=== PATIENT | female | born 1950 | race Caucasian/White ===

== ENCOUNTER 2017-12-27 14:24 | Outpatient (CLI) | payer MEDICARE | END 2017-12-27 14:25 | disposition home or self-care (01) | LOC: BICMAMMO 14:24 | PROVIDERS: ATTEND Obstetrics & Gynecology | DX: Z12.31 Encounter for screening mammogram for malignant neoplasm of breast (principal); Z13.820 Encounter for screening for osteoporosis; M85.80 Other specified disorders of bone density and structure, unspecified site; Z85.89 Personal history of malignant neoplasm of other organs and systems | CPT/HCPCS: 77063; 77067; 77080 ==

== ENCOUNTER 2018-05-15 16:54 | Observation (INO) | payer MEDICARE ==
[2018-05-15] MEDS ORDERED: Ondansetron HCl/PF 4 MG/2 ML Vial ONE (17:24)
[2018-05-15] MEDS ORDERED: Fentanyl 100 MCG/2 ML VIAL ONE (17:24)
[2018-05-15] MEDS ORDERED: Nitroglycerin 2% Ointment 1 INCH/1 GM Packet ONE (17:24)
[2018-05-15 17:33] LABS: Hemoglobin 12.7 g/dL (12.0-16.0); Mean Corpuscular HGB CONC 33.9 g/dL (32.0-36.0); Mean Corpuscular Hemoglobin 31.5 pg (27.0-31.0); Mean Platelet Volume 8.5 fL (7.4-10.4); Platelet Count 172 thou/uL (130-400); RBC Distribution Width 13.1 % (11.5-14.5); Red Blood Cell (RBC) Count 4.02 mill/uL (4.20-5.40)
[2018-05-15 17:37] LABS: #Eosinphils 0.3 thou/uL (0.0-0.7); #Lymphocytes 1.7 thou/uL (1.20-3.40); #Monocytes 0.5 thou/uL (0.11-0.59); #Neutrophils 4.5 thou/uL (1.40-6.50); %Basophils 0.4 % (0.0-1.0); %Eosinophils 3.8 % (0.0-10.0); %Lymphocytes 24.1 % (21.0-51.0); %Monocytes 7.3 % (0.0-10.0); %Neutrophils 64.4 % (42.0-75.0)
[2018-05-15 17:44] LABS: CRP (Inflammatory) Less than 0.50 mg/dL (= or < 0.5); Magnesium 2.2 mg/dL (1.6-2.6)
[2018-05-15 17:46] LABS: ALT (SGPT) 20 U/L (8-55); AST (SGOT) 26 U/L (5-34); Albumin 3.8 g/dL (3.4-4.8); Alkaline Phosphatase 76 U/L (40-150); Anion Gap 14 mmol/L (10-20); BUN (Urea Nitrogen) 20 mg/dL (9.8-20.1); Bilirubin, Total 0.7 mg/dL (0.2-1.2); CK (CPK) 291 U/L (29-168); Calc. Creatinine Clearance 0 mL/min (70-130); Calcium 9.3 mg/dL (7.8-10.44); Carbon Dioxide 26 mmol/L (23-31); Chloride 103 mmol/L (98-107); Estimated GFR-MDRD 46; Globulin 3.1 g/dL (2.4-3.5); Glucose 107 mg/dL (80-115); Lipase 29 U/L (8-78); Potassium 3.9 mmol/L (3.5-5.1); Protein, Total 6.9 g/dL (6.0-8.3); Sodium 139 mmol/L (136-145)
[2018-05-15 17:51] LABS: CKMB 1.1 ng/mL (0-6.6); Troponin I Less than 0.010 ng/mL (< 0.028)
--- NOTE | 2018-05-15 18:05 | RAD ---
SINGLE VIEW OF THE CHEST: 05/15/18 COMPARISON: 01/11/17 HISTORY: Chest pain. FINDINGS: Single view of the chest shows a normal sized cardiomediastinal silhouette. The patient is status pos t CABG. There is no evidence of consolidation, mass, or pleural effusion. IMPRESSION: No evidence of acute cardiopulmonary disease. POS: SJ
[2018-05-15 19:44] VITALS: BMI 28.8
[2018-05-15] MEDS ORDERED: Ondansetron ODT 4 MG TAB SL PRN (19:57)
[2018-05-15] MEDS ORDERED: Ondansetron HCl/PF 4 MG/2 ML Vial IVP PRN (19:57)
[2018-05-15] MEDS ORDERED: Acetaminophen 325 MG TAB PO PRN ×2 (19:57→21:30)
[2018-05-15 20:51] LABS: Troponin I 0.015 ng/mL (< 0.028)
[2018-05-15] MEDS ORDERED: cloNIDine 0.1 MG TAB PO PRN (20:59)
[2018-05-15] MEDS ORDERED: Benzonatate 100 MG CAP PO PRN (20:59)
[2018-05-15] MEDS ORDERED: Ondansetron ODT 4 MG TAB PO PRN (20:59)
[2018-05-15] MEDS ORDERED: Atorvastatin Calcium 20 MG TAB PO SCH (21:00)
[2018-05-15] MEDS ORDERED: Amitriptyline HCl 25 MG TAB PO SCH (21:00)
[2018-05-15] MEDS ORDERED: Famotidine 20 MG TAB PO SCH (21:00)
[2018-05-15] MEDS ORDERED: Carvedilol 25 MG TAB PO SCH (21:00)
[2018-05-15] MEDS ORDERED: Zonisamide 25 MG CAP PO SCH (21:00)
[2018-05-15] MEDS ORDERED: Calcium Carbonate 500 MG ChewTAB PO PRN (21:30)
[2018-05-15] MEDS ORDERED: Mag-Al 1200 mg/1200 mg/30 ML UDCUP PO PRN (21:30)
[2018-05-15] MEDS ORDERED: Senokot 8.6 MG TAB PO PRN (21:30)
[2018-05-15] MEDS ORDERED: Nitroglycerin 0.4 MG TAB (25 Tab Bottle) PO PRN (21:30)
--- NOTE | 2018-05-15 21:40 | HP ---
DATE OF ADMISSION: 05/15/2018 PRIMARY CARE PHYSICIAN: KIANA Wang PRIMARY BREWERY WORKER: Dr. Conley. CHIEF COMPLAINT: Chest discomfort. HISTORY OF PRESENT ILLNESS: Patient is a 67-year-old female with coronary artery disease, status pos t CABG, diabetes mellitus type 2, hypertension, and dyslipidemia presented to the emergency room with chest discomfort. The chest discomfort was sudden onset, severe in intensity, substernal, radiating between her scapula. It was constant, pressure-like without any aggravating or relieving factor. S he was diaphoretic and short of breath at that time. The pain somewhat improved with nitroglycerin. She also felt lightheaded and dizzy; however, denies any syncope. She denies recent immobilization or travel. She recently saw Dr. Conley and had an echocardiogram. No similar chest discomfort in the past. PAST MEDICAL HISTORY: 1. Coronary artery disease, status post CABG with redo CABG in 2016. 2. Irritable bowel syndrome. 3. History of ischemic colitis. 4. Chronic hemiplegic migraine. 5. Chronic pain syndrome. 6. Dyslipidemia. 7. Diabetes mellitus, type 2. 8. Hypertension. 9. Anxiety and depression. PAST SURGICAL HISTORY: 1. Coronary artery bypass grafting in 2005 with redo CABG in 2016. 2. Cardiac catheterization. 3. Hysterectomy. 4. Colonoscopy. 5. Appendectomy. 6. Bladder suspension surgery. 7. Hernia repair. ALLERGIES: Patient is allergic to CIPROFLOXACIN, REGLAN. CURRENT HOME MEDICATIONS: Family to bring the accurate list of medications. She is unable to recall all medications. SOCIAL HISTORY: Patient is and lives at home with her . She is a professor at [employer]. No tobacco, alcohol, or drug use. FAMILY HISTORY: Positive for coronary artery disease. REVIEW OF SYSTEMS: The following complete review of systems was negative, unless otherwise mentioned in the HPI or below: Constitutional: Weight loss or gain, ability to conduct usual activities. Sk in: Rash, itching. Eyes: Double vision, pain. ENT/Mouth: Nose bleeding, neck stiffness, pain, te nderness. Cardiovascular: Palpitations, dyspnea on exertion, orthopnea. Respiratory: Shortness of breath, wheezing, cough, hemoptysis, fever, or night sweats. Gastrointestinal: Poor appetite, abdo kristi pain, heartburn, nausea, vomiting, constipation, or diarrhea. Genitourinary: Urgency, frequen cy, dysuria, nocturia. Musculoskeletal: Pain, swelling. Neurologic/Psychiatric: Anxiety, depressi on. Allergy/Immunologic: Skin rash, bleeding tendency. PHYSICAL EXAMINATION: VITAL SIGNS: In the emergency room showed temperature 97.8, respirations of 20, pulse rate of 87, bl ood pressure of 149/77 with O2 saturation 97% on room air. GENERAL: A 67-year-old female in no apparent distress. Chest discomfort has improved. HEENT: Head atraumatic, normocephalic. Sclerae anicteric. Moist mucous membrane, no oral lesions. NECK: Supple, no JVD, no carotid bruit. LUNGS: Clear to auscultation bilaterally. HEART: S1, S2 present. Regular rate and rhythm. Healed midline scar from previous CABG. No reprod ucible chest wall tenderness. No heaves or pulsation. ABDOMEN: Soft, nontender, bowel sounds present. There was minimal tenderness in the suprapubic mi on without any rebound or guarding. EXTREMITIES: No edema or calf tenderness. PERIPHERAL VASCULAR: Radial pulses palpable bilaterally and equal. PSYCHIATRY: Alert, awake, oriented x3. NEUROLOGIC: Grossly nonfocal, moves all four extremities. SKIN: Warm and dry. LABORATORY DATA AND X-RAY FINDINGS: 1. EKG by my review showed sinus rhythm without significant ST-T wave changes. 2. Troponins were negative. 3. BNP was 31.4. 4. Creatinine 1.18 with a BUN 20, sodium 139, potassium 3.9. 5. WBC was 7 with hemoglobin 12.7. 6. ESR, CRP were negative. Magnesium was 2.2. LFTs in normal range. Chest x-ray by my review was negative for infiltrate. There was no mediastinal widening. IMPRESSION: 1. Chest discomfort improved with nitroglycerin. 2. Diabetes mellitus, type 2. 3. Chronic kidney disease, stage 3. 4. Hypertension. 5. History of ischemic colitis. 6. Chronic pain syndrome. 7. Chronic hemiplegic migraine. 8. Coronary artery disease, status post coronary artery bypass graft in 2005 with a redo coronary ar demian bypass graft in 2016. PLAN: Patient will be monitored in the telemetry unit. We will get serial troponins. We will keep her n.p.o. past midnight for Cardiology evaluation in a.m. We will resume her home medications includ ing aspirin. Home medications will be verified. Plan of care was discussed with the patient in detail. She stated understanding.
[2018-05-15] MEDS: Gabapentin 300 MG CAP PO SCH (21:56)
[2018-05-15] MEDS: Baclofen 10 MG TAB PO SCH (21:56)
[2018-05-15] MEDS: Lisinopril 2.5 MG TAB PO SCH (21:59)
[2018-05-15] MEDS: cycloSPORINE 0.05% Ophthalmic Droperette EA EYE SCH (22:01)
[2018-05-15 23:42] LABS: Troponin I 0.011 ng/mL (< 0.028)
[2018-05-16] MEDS ORDERED: Carvedilol 3.125 MG TAB PO SCH (08:00)
[2018-05-16] MEDS ORDERED: Iopamidol 370 76% 100 ML VIAL ONE (08:19)
[2018-05-16] MEDS: Lisinopril 2.5 MG TAB PO SCH (08:33)
[2018-05-16] MEDS: Gabapentin 300 MG CAP PO SCH ×2 (08:36→15:35)
[2018-05-16] MEDS: Baclofen 10 MG TAB PO SCH ×2 (08:36→15:35)
[2018-05-16] MEDS: cycloSPORINE 0.05% Ophthalmic Droperette EA EYE SCH (08:46)
[2018-05-16] MEDS ORDERED: Furosemide 20 MG TAB PO SCH ×2 (09:00)
[2018-05-16] MEDS ORDERED: Aspirin 325 mg Enteric Coated Tablet PO SCH (09:00)
[2018-05-16] MEDS ORDERED: Famotidine 20 MG TAB PO SCH (09:00)
[2018-05-16] MEDS ORDERED: Folic Acid 1 MG TAB PO SCH (09:00)
--- NOTE | 2018-05-16 11:43 | CT ---
CTA CHEST WITH CONTRAST CTA ABDOMEN WITH CONTRAST DISSECTION PROTOCOL: Date: 05/16/18 HISTORY: New onset chest pain without EKG changes. FINDINGS: There is a nodule in the left upper lobe measuring 4.0 mm. There is some scarring in the right middle lobe and right lower lobe. Triangular shaped opacity in the left lung base, not definitively round a telectasis, measuring up to 6.0 mm. No pericardial effusion. Heart size mildly enlarged. Hypodensities are present in the liver. The spleen and pancreas are unremarkable. No retroperitoneal adenopathy. No dilated loops of large or small bowel. Skeleton is unremarkable. Adrenal glands unremarkable. Vessels: Prior CABG. No aneurysmal dilatation of the aorta. No dissection. No intramural hematoma. T he celiac trunk and superior mesenteric artery are patent. Common iliac arteries are patent. IMPRESSION: No evidence for aortic dissection. POS: ANGELIQUE
--- NOTE | 2018-05-16 13:21 | CON ---
DATE OF CONSULTATION: 05/16/2018 INDICATION FOR CONSULTATION: This is a 67-year-old female with new onset chest pain. HISTORY OF PRESENT ILLNESS: This very pleasant 67-year-old female who has been followed by me for se veral years. She has undergone bypass surgery x2 in the past. She had a CABG in 2004 with a CARDONA to left anterior descending artery, radial graft to the ramus and saphenous vein graft to the obtuse ma rginal branch of left circumflex. She underwent redo bypass surgery in 2015 with saphenous vein jef t to the LAD and also to the ramus branch. She has been doing very well after her bypass surgery. S he was recently seen in the office without any complaints. Yesterday, she was at work. 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 She took 2 nitroglycerins. She was still having some discomfort. She then was going to the main office to have them call 911. She went to he hallway and called a grad student and then the next thing she remembers she was sitting on the elizabeth or. She denies that she passed out, but she said she sat down because she was still continuing to mendoza ve pain. She was brought to the emergency room here and now she still has some discomfort, but there is no significant pain like she had. She had never experienced pain like this in the past. Her enz ymes are negative. Her EKG is unremarkable. Uncertain as to why she had the severe pain in the ches t area radiating to the intrascapular area. She also became very diaphoretic and lightheaded, but it may be due to the fact that she took 2 nitroglycerin. Also, her blood pressure is on the low side t yumiko, but she was given increased dose of Coreg last night. This is more than her usual dose. She d enied any significant complaints at this time, so she still continues to have some mild discomfort. PAST MEDICAL HISTORY: Significant for the bypass surgery as noted above, irritable bowel syndrome, h istory of chronic migraines which are hemiplegia. She has chronic pain syndrome. She has had histor y of ischemic colitis. She has type 2 diabetes, dyslipidemia, anxiety, depression, hypertension. Marcin coleman has had a surgical procedure. She has had bypass surgery as noted above. She has had a hysterecto my, colonoscopy, appendectomy. She has had a hernia repair, bladder suspension. ALLERGIES: She is allergic to REGLAN and CIPRO. MEDICATIONS: Prior to admission included simvastatin, Zofran, folic acid, Restasis ophthalmic drops, ranitidine, benzonatate, dicyclomine, aspirin 325 mg a day, Butrans 5 mg patch, Celebrex, baclofen, Neurontin, Elavil, lisinopril 2.5 mg b.i.d., clonidine as needed for blood pressure greater than 160- 180, 1 g daily, Lasix 20 mg a day, biotin daily 1 mg, and Coreg 3.125 mg b.i.d. Since being in the hospital, these medicines have been continued and now I have decreased the dose of the Coreg, marcin coleman was given 12.5 mg yesterday. LABORATORY DATA: Shows no evidence of myocardial infarctions, her cardiac enzymes are negative. Her CK was slightly elevated at 291. Hemoglobin is 12.7, creatinine is 1.18, potassium 3.9. REVIEW OF SYSTEMS: A 12 point review of systems is relatively unremarkable except what was noted in the history of the present illness. She does have chronic headaches, but seems to be stable at this time. She has had no other significant HEENT complaints. Chest: She has had no complaints from ast hma, emphysema, bronchitis or significant shortness of breath. No GI or complaints except what wa s noted in the history of present illness. She has been doing relatively well. PHYSICAL EXAMINATION: GENERAL: Reveals a middle-aged female who is in no acute distress. VITAL SIGNS: Blood pressure at this time is 87/52 may be the residual of the previous beta blockers given last night, heart rates in the 70s and shows a sinus rhythm. Respiratory rate 16. She is afeb rile. HEENT: Shows head to be normocephalic and atraumatic. Carotid pulses are present. I did not hear a ny bruits. CHEST: Clear to auscultation without rales, rhonchi or wheezing. CARDIOVASCULAR: Exam reveals a regular rate and rhythm at this time a normal S1, S2. There are no s ignificant murmurs, heaves, thrills, bruits or rubs. ABDOMEN: Soft and nontender. She does have a well-healed midline surgical incision on the chest are a after previous median sternotomy. EXTREMITIES: Show no clubbing, cyanosis or edema. Pedal pulses are present, but are somewhat decrea sed. NEUROLOGIC: The patient appears to be intact. SKIN: Warm and dry. Her EKG shows a normal sinus rhythm without any acute changes. Her chest x-ray is also unremarkable. IMPRESSION: 1. New onset chest pain which have improved after taking some nitroglycerin and reporting to the [facility], but still continues to have dull ache. Given her history of hypertension in the past and the coronary artery disease without any evidence of EKG changes or cardiac enzymes, this may not be corre late coronary related. I will ask him to check a CT scan just to ensure she has had no small dissect ion of the aorta. 2. Diabetes. This is under good control at this time. 3. History of chronic kidney disease. This is also relatively stable. Her creatinine is under good control. Her chronic pain syndrome is different than what she experienced yesterday and I do not be lieve this is related to that. 4. Coronary artery disease does appear to be stable despite having the chest discomfort. We would b e more than happy to follow you. She does have some mild anemia, but this is within normal limits. 5. Elevated CK, but no elevation of the cardiac enzymes otherwise. Further care of the patient and recommendations will depend on whether or not there are any abnormalities noted whatsoever on CT scan .
--- NOTE | 2018-05-16 14:18 | DIS ---
DATE OF ADMISSION: 05/15/2018 DATE OF DISCHARGE: 05/16/2018 DISCHARGE DISPOSITION: Home. FOLLOWUP: Follow up with primary care physician, Aurelia Victoria in 1 week. Follow up with Dr. Carmen LUO in 1 week. INPATIENT CONSULTANTS: Cardiology, Dr. Conley. The patient was seen on the day of discharge, denies any new complaints. Chest discomfort has signif icantly improved. BRIEF HOSPITAL COURSE: The patient is a 67-year-old female with coronary artery disease, status post CABG, hypertension, and diabetes mellitus type 2, presented to the hospital with chest discomfort. Please refer to the history and physical for further details. The patient was admitted to the hospital with a diagnosis of chest pain, rule out acute coronary synd leah. Serial troponins were negative. CT of the chest was negative for aortic dissection. Patient was evaluated by Cardiology as well. Per Cardiology, her pain appears to be noncardiac. She will be discharged later today once cleared by Cardiology. The patient takes Dexilant on an as needed basis . She was advised to take Dexilant on a daily basis for now for a month. She was advised to follow up with Dr. Carmen LUO as an outpatient. DISCHARGE MEDICATIONS: 1. Dexilant 60 mg daily. 2. All other home medications including aspirin, Coreg, baclofen, amitriptyline were left unchanged. FINAL DIAGNOSES: 1. Chest pain, acute coronary syndrome ruled out. 2. Diabetes mellitus type 2. 3. Chronic pain syndrome. 4. Chronic kidney disease stage 3. 5. Hypertension. 6. Chronic hemiplegic migraine. 7. Coronary artery disease, status post coronary artery bypass graft in 2005 with a redo coronary ar demian bypass graft in 2016. 8. History of ischemic colitis. Plan of care was discussed with the patient and the family at the bedside. They stated understanding .
[2018-05-16 15:54] VITALS: BP 98/57; TEMP 97.5
--- NOTE | 2018-05-20 08:29 | EKG ---
Test Reason : Blood Pressure : / mmHG Vent. Rate : 072 BPM Atrial Rate : 072 BPM P-R Int : 160 ms QRS Dur : 080 ms QT Int : 434 ms P-R-T Axes : 018 017 016 degrees QTc Int : 475 ms Normal sinus rhythm Normal ECG When compared with ECG of 15-MAY-2018 17:12, (Unconfirmed) No significant change was found Confirmed by DR. Jason MAN ([id number]) on 05/20/2018 8:29:14 AM Referred By: GERMAN Confirmed By:DR. Jason MAN
--- NOTE | 2018-05-25 12:42 | EKG ---
Test Reason : CP Blood Pressure : / mmHG Vent. Rate : 085 BPM Atrial Rate : 085 BPM P-R Int : 152 ms QRS Dur : 086 ms QT Int : 406 ms P-R-T Axes : 035 040 005 degrees QTc Int : 483 ms Normal sinus rhythm Normal ECG Confirmed by JACKIE MONAE, SADI ([id number]), staff editor CHIDI UNDERWOOD ([id number]) on 05/25/2018 12:41:35 PM Referred By: Confirmed By:SADI MEJIA MD
== END 2018-05-16 16:05 | disposition home or self-care (01) ==
LOC: ERS 16:54 → 2SW 19:28
PROVIDERS: ADMIT Internal Medicine; ATTEND Internal Medicine
DX: R07.89 Other chest pain (principal); I25.10 Atherosclerotic heart disease of native coronary artery without angina pectoris; I12.9 Hypertensive chronic kidney disease with stage 1 through stage 4 chronic kidney disease, or unspecified chronic kidney disease; E11.22 Type 2 diabetes mellitus with diabetic chronic kidney disease; N18.3 Chronic kidney disease, stage 3 (moderate); E78.5 Hyperlipidemia, unspecified; G89.4 Chronic pain syndrome; F41.8 Other specified anxiety disorders; K58.9 Irritable bowel syndrome, unspecified; K55.9 Vascular disorder of intestine, unspecified; G43.409 Hemiplegic migraine, not intractable, without status migrainosus; Z79.82 Long term (current) use of aspirin; Z79.899 Other long term (current) drug therapy; Z88.1 Allergy status to other antibiotic agents; Z88.8 Allergy status to other drugs, medicaments and biological substances; Z95.1 Presence of aortocoronary bypass graft; Z98.890 Other specified postprocedural states
CPT/HCPCS: 71045; 71275; 80053; 82550; 82553; 83690; 83735; 83880; 84484 ×2; 85025; 85652; 86140; 93005 ×2; 94760 ×3; 96374; 96375; 99285; G0378 ×2; 36415; 93010; J2405; J3010

== ENCOUNTER 2019-06-06 10:46 | Outpatient (CLI) | payer MEDICARE ==
--- NOTE | 2019-06-06 12:29 | MRI ---
MRI cervical spine noncontrast: DATE: 06/06/2019 HISTORY: 68-year-old female with "M 50.10 cervical intervertebral disc disorder with radiculopathy" and gait d isorder. FINDINGS: Vertebral body heights are maintained. Cervical spinal cord is normal in size and signal. The cervica l spinal canal is developmentally small in caliber on a congenital basis due to developmentally short pedicles, exacerbated at several levels by cervical spondylosis. No major bone marrow signal ab normality. Mild-moderate disc space narrowing at all levels from C3-4 through C6-7. Facet DJD is mild to moderate bilaterally at C7-T1. No high-grade facet DJD at any other level. C1-2: No central stenosis. C2-3: No central or neural foraminal stenosis. C3-4: Small to moderate bilateral uncinate process osteophytes encroach upon bilateral neural foramin a, causing bilateral moderate to severe neural foraminal stenosis. Slight degenerative retrolisthesis of C3 on C4 plus broad-based shallow disc-osteophytic bar complex encroaches upon spin al canal exacerbating the developmentally small caliber of the spinal canal, causing moderate-severe central spinal canal stenosis. C4-5: Broad-based shallow disc-osteophytic bar complex encroaches upon ventral aspect of spinal canal , exacerbating the developmentally small caliber spinal canal, causing moderate to severe central spinal canal stenosis. Moderate size bilateral uncinate process osteophytes encroach upon bilateral n eural foramina, resulting in severe right neural foraminal stenosis and somewhat severe left neural foraminal stenosis. C5-6: Broad-based shallow disc-osteophytic bar complex, and slight degenerative retrolisthesis of C5 on C6, encroach upon ventral aspect of spinal canal, exacerbating the developmentally small caliber spinal canal, causing moderate to severe central spinal canal stenosis. Moderate size bilateral uncin ate process osteophytes encroach upon bilateral neural foramina, resulting in bilateral moderate-severe neural foraminal stenosis. C6-7:Broad-based shallow disc-osteophytic bar complex, encroaches upon ventral aspect of spinal canal , exacerbating the developmentally small caliber spinal canal, causing moderate to severe central spinal canal stenosis. Moderate size bilateral uncinate process osteophytes encroach upon bilateral n eural foramina, resulting in bilateral severe neural foramina C7-T1: No central stenosis. Mild broad-based disc-osteophytic bar complex encroaches upon anterior as pect of spinal canal. Bilateral moderate neural foraminal stenosis. IMPRESSION: 1. Developmentally small caliber spinal canal exacerbated by mild to moderate cervical spondylosis (m ultilevel mild to moderate degenerative disc disease), resulting in multilevel high-grade central spinal canal stenosis. 2. Multilevel high-grade neural foraminal stenosis bilaterally, including severe.
== END 2019-06-06 10:47 | disposition home or self-care (01) ==
LOC: TBSIIMAG 10:46
PROVIDERS: ATTEND Anesthesiology
DX: M50.10 Cervical disc disorder with radiculopathy, unspecified cervical region (principal); M47.22 Other spondylosis with radiculopathy, cervical region; M48.02 Spinal stenosis, cervical region
CPT/HCPCS: 72141

== ENCOUNTER 2019-10-06 09:46 | Inpatient (IN) | payer MEDICARE ==
--- NOTE | 2019-10-06 10:19 | CT ---
CT BRAIN WITHOUT CONTRAST: Date: 10/06/2019 HISTORY: Level I stroke, right-sided weakness, and right-sided facial droop. COMPARISON: 06/18/2016. FINDINGS: No evidence of acute infarct, hemorrhage, midline shift, or abnormal extra-axial fluid collections ar e seen. The ventricular size is normal and the basilar cisterns are patent. The bony calvarium is int act. The visualized paranasal sinuses and mastoid air cells are well aerated. IMPRESSION: No CT evidence of acute intracranial process. S/W Dr Jones @ 9:57 am POS: OFF
[2019-10-06 10:39] LABS: #Basophils 0.1 thou/uL (0.0-0.2); #Eosinphils 0.2 thou/uL (0.0-0.7); #Lymphocytes 1.9 thou/uL (1.20-3.40); #Monocytes 0.8 thou/uL (0.11-0.59); #Neutrophils 6.6 thou/uL (1.40-6.50); %Basophils 0.6 % (0.0-1.0); %Eosinophils 2.4 % (0.0-10.0); %Lymphocytes 19.5 % (21.0-51.0); %Monocytes 8.3 % (0.0-10.0); %Neutrophils 69.2 % (42.0-75.0); Hemoglobin 13.3 g/dL (12.0-16.0); Mean Corpuscular HGB CONC 32.6 g/dL (32.0-36.0); Mean Corpuscular Hemoglobin 30.2 pg (27.0-31.0); Mean Corpuscular Volume 92.6 fL (78.0-98.0); Mean Platelet Volume 6.8 fL (7.4-10.4); Platelet Count 249 thou/uL (130-400); RBC Distribution Width 12.1 % (11.5-14.5); Red Blood Cell (RBC) Count 4.39 mill/uL (4.20-5.40); White Blood Cell (WBC) Count 9.5 thou/uL (4.8-10.8)
--- NOTE | 2019-10-06 10:42 | CT ---
CT ANGIOGRAM NECK WITH CONTRAST CT ANGIOGRAM BRAIN WITH CONTRAST: DATE: 10/06/2019 HISTORY: 69-year-old female with acute stroke symptoms. Right-sided weakness. This stroke alert protocol report was called stat by Dr. Marley to Dr. Jones at 10:39 AM 10/06/2019 TECHNIQUE: After IV contrast injection, arterial bolus chasing technique scan performed from AP window to vertex of head. Coronal and sagittal 3-D MIP reconstructions. FINDINGS: Bilateral MCAs: No thrombus, occlusion, or high-grade stenosis of M1 segments. Bilateral ACAs: Bilateral A1 and A2 segments are patent, with no evidence of high-grade stenosis. Intracranial vertebrals: Focal heavily calcified plaque on the left causing mild stenosis. Normal rig ht. Basilar: Normal Bilateral banking and finance instructor: Patent P1 and P2 segments. Superior cerebellars: Proximal left patent. Right diminutive. Bilateral carotid siphons: Extensive atherosclerotic calcification. No obvious high-grade stenosis. Right internal carotid: Moderate calcified plaque proximally without high-grade stenosis. Right common carotid: Severe artifact 1.5 cm distal to origin resulting in discontiguous appearance. No definite high-grade stenosis identified. Left internal carotid: Moderately calcified atherosclerotic plaque, greater than on the contralateral right side proximally. Estimated approximately 20% stenosis located approximately 1.5 cm distal to origin. No severe stenosis identified. Left common carotid: No high-grade stenosis. Brachiocephalic: No high-grade stenosis. Right subclavian: No high-grade stenosis. Left subclavian: No high-grade stenosis. Right vertebral: Heavily calcified plaque at origin makes it difficult to evaluate degree of stenosis . Estimated mild stenosis there. No high-grade stenosis in rest of the cervical vertebral artery. Left vertebral: Heavily calcified plaque at origin. Difficult to rule out high-grade stenosis. No hig h-grade stenosis in rest of cervical left vertebral artery. Bilaterally codominant vertebral arteries. Lung apices: Nonspecific patchy bilateral groundglass pulmonary densities. IMPRESSION: 1. No M1 segment thrombus. 2. Probable high-grade stenosis at origin of left vertebral artery. 3. No other high-grade stenosis identified. 4. Atherosclerotic disease involving multiple vessels.
[2019-10-06 10:47] LABS: PTT 35.6 SEC (22.9-36.1); Prothrombin Time 13.4 SEC (12.0-14.7)
[2019-10-06 11:08] LABS: ALT (SGPT) 10 U/L (8-55); AST (SGOT) 12 U/L (5-34); Albumin 3.4 g/dL (3.4-4.8); Alkaline Phosphatase 77 U/L (40-110); Anion Gap 12 mmol/L (10-20); BUN (Urea Nitrogen) 20 mg/dL (9.8-20.1); Bilirubin, Total 0.2 mg/dL (0.2-1.2); Calc. Creatinine Clearance 0 mL/min (70-130); Calcium 8.6 mg/dL (7.8-10.44); Carbon Dioxide 26 mmol/L (23-31); Chloride 104 mmol/L (98-107); Estimated GFR-MDRD 33; Globulin 1.9 g/dL (2.4-3.5); Glucose 95 mg/dL (80-115); Potassium 4.4 mmol/L (3.5-5.1); Protein, Total 5.3 g/dL (6.0-8.3); Sodium 138 mmol/L (136-145)
[2019-10-06] MEDS ORDERED: Benzonatate 100 MG CAP PO PRN ×2 (12:12→12:22)
[2019-10-06] MEDS ORDERED: Dicyclomine 10 MG CAP PO PRN (12:12)
[2019-10-06] MEDS ORDERED: Baclofen 10 MG TAB PO PRN (12:12)
[2019-10-06] MEDS ORDERED: Ondansetron ODT 4 MG TAB PO PRN ×2 (12:12→12:17)
[2019-10-06] MEDS ORDERED: Famotidine 20 MG TAB PO PRN (12:17)
[2019-10-06] MEDS ORDERED: HYDROcodone/Acetaminophen 5/325 mg Tablet PO PRN (12:17)
[2019-10-06] MEDS ORDERED: Loperamide HCl 2 MG CAP PO PRN (12:17)
[2019-10-06] MEDS ORDERED: Acetaminophen 325 MG TAB PO PRN (12:17)
[2019-10-06] MEDS ORDERED: Bisacodyl 10 MG SUPP PR PRN (12:17)
[2019-10-06] MEDS ORDERED: diphenhydrAMINE 25 MG CAP PO PRN (12:22)
[2019-10-06] MEDS ORDERED: Melatonin 3 MG TAB PO PRN (12:22)
[2019-10-06] MEDS ORDERED: Docusate 100 MG CAP PO PRN (12:22)
[2019-10-06] MEDS ORDERED: Dextrose 50% Abboject 50 ML SYRINGE SLOW IVP PRN (12:27)
[2019-10-06] MEDS ORDERED: Dextrose 5% in Water 1,000 ML IV PRN (12:27)
[2019-10-06] MEDS ORDERED: HumaLOG 300 UNITS/3 ML VIAL SC PRN ×2 (12:27)
[2019-10-06] MEDS ORDERED: Morphine 2 MG/ML SYRINGE SLOW IVP PRN (12:47)
--- NOTE | 2019-10-06 12:54 | PDOC.HHP ---
Hospitalist HPI - History of Present Illness AMS, concern for CVA History of Present Illness: 69 year old female with complex past medical history presents with altered mental status and weakness. Patient has PMHx of Complex migraines with right sided hemiplegia at baseline, CABG in 2004 with redo CABG in 2016, DM, HTN, HLD , and cervical radiculopathy who was planed for cervical spine surgery this Sunday with Dr Herrera. Patient sees pain management and is on Buprenorphine transdermal at baseline for chronic pain syndrome. Patient is accomanied by her who is able to aid in history. Patient with nausea and lower quadrant abdominal pain for the past week. She does get constipated, though with Linzess this is alleviated. Patient has been moving her bowels the past few days and denies diarrhea. Patient this AM was more lethargic and it was difficult for her to wake her. Patient was helped to the couch and when she was more weak he was concerned and called 911. I find the patient in the emergency department, breathing comfortably on room air. She is resting comfortably with her eyes closed throughout my history and physical, though she is talking in full sentences and moving all extremities. When I feel her abdomen she tells me she has intense pain in her face and lips feel like they are burning. There is no appreciated facial asymmetry or skin lesions. With complex neurologic presentation we will ask for Neurology consultation. CT scan of the abdomen ordered to rule out acute pathology, though patient does seem to have large stool burden on palpation. Hospitalist ROS - Review of Systems All other systems reviewed; all pertinent +/- noted in HPI/Subj Hospitalist History - Past Medical History Source: patient, family, old records Cardiac: reports: CAD, HTN, [place], Hyperlipidemia Pulmonary: reports: high cholesterol [employer]: reports: Migraine (complex with right hemiplegia) Gastrointestinal: reports: GERD, Gastritis Musculoskeletal: reports: Chronic low back pain (Cervical pain also) Endocrine: reports: Diabetes - Past Surgical History Past Surgical History: reports: CABG (and redo) - Family History Family History: reports: hypertension - Social History Smoking Status: Never smoker Alcohol: reports: None Drugs: reports: none Living Situation: With Family Domestic Violence: Negative Activity level: independent ambulation - Exam General Appearance: NAD, awake alert Eye: PERRL, anicteric sclera ENT: normocephalic atraumatic, moist mucosa Neck: supple, no lymphadenopathy Heart: no murmur, no gallops, no rubs, normal peripheral pulses Respiratory: CTAB, no wheezes, no rales, no ronchi, normal chest expansion, no tachypnea Gastrointestinal: soft, non-tender, non-distended, no palpable masses, no guarding, no rigidity Gastrointestinal - other findings: Large stool burden palpable Extremities: no edema Skin: no lesions, no rashes Neurological: cranial nerve grossly intact, normal sensation to touch, no focal deficits, no new deficit Musculoskeletal: generalized weakness Psychiatric: normal behavior, A&O x 3, flat affect Hospitalist Results - Labs Result Diagrams: 10/06/19 10:27 10/06/19 10:27 Lab results: WBC 9.5 thou/uL (4.8-10.8) 10/06/19 10:27 Hgb 13.3 g/dL (12.0-16.0) 10/06/19 10:27 Hct 40.6 % (36.0-47.0) 10/06/19 10:27 MCV 92.6 fL (78.0-98.0) 10/06/19 10:27 Plt Count 249 thou/uL (130-400) 10/06/19 10:27 Neutrophils % 69.2 % (42.0-75.0) 10/06/19 10:27 Sodium 138 mmol/L (136-145) 10/06/19 10:27 Potassium 4.4 mmol/L (3.5-5.1) 10/06/19 10:27 Chloride 104 mmol/L (98-107) 10/06/19 10:27 Carbon Dioxide 26 mmol/L (23-31) 10/06/19 10:27 BUN 20 mg/dL (9.8-20.1) 10/06/19 10:27 Creatinine 1.57 mg/dL (0.6-1.1) H 10/06/19 10:27 Glucose 95 mg/dL (80-115) 10/06/19 10:27 Calcium 8.6 mg/dL (7.8-10.44) 10/06/19 10:27 Total Bilirubin 0.2 mg/dL (0.2-1.2) 10/06/19 10:27 AST 12 U/L (5-34) 10/06/19 10:27 ALT 10 U/L (8-55) 10/06/19 10:27 Alkaline Phosphatase 77 U/L (40-110) 10/06/19 10:27 Troponin I Less than 0.010 ng/mL (< 0.028) 10/06/19 10:27 Serum Total Protein 5.3 g/dL (6.0-8.3) L 10/06/19 10:27 Albumin 3.4 g/dL (3.4-4.8) 10/06/19 10:27 - Radiology Interpretation CT scan - head Status: image reviewed by oh Hospitalist H&P A/P - Problem (1) TIA (transient ischemic attack) Code(s): G45.9 - TRANSIENT CEREBRAL ISCHEMIC ATTACK, UNSPECIFIED Status: Acute (2) Abdominal pain Code(s): R10.9 - UNSPECIFIED ABDOMINAL PAIN Status: Acute (3) Altered mental status Code(s): R41.82 - ALTERED MENTAL STATUS, UNSPECIFIED Status: Acute (4) Arthritis Code(s): M19.90 - UNSPECIFIED OSTEOARTHRITIS, UNSPECIFIED SITE Status: Acute (5) Depression Code(s): F32.9 - MAJOR DEPRESSIVE DISORDER, SINGLE EPISODE, UNSPECIFIED Status : Acute (6) Status post coronary artery bypass graft Code(s): Z95.1 - PRESENCE OF AORTOCORONARY BYPASS GRAFT Status: Acute (7) Anxiety disorder Code(s): F41.9 - ANXIETY DISORDER, UNSPECIFIED Status: Chronic (8) CAD (coronary artery disease) Code(s): I25.10 - ATHSCL HEART DISEASE OF [place] CORONARY ARTERY W/O ANG PCTRS Status: Chronic Qualifiers: Coronary Disease-Associated Artery/Lesion type: [place] artery [place] vs. transplanted heart: [place] heart Associated angina: without angina Qualified Code(s): I25.10 - Atherosclerotic heart disease of [place] coronary artery without angina pectoris (9) CAD in [place] artery Code(s): I25.10 - ATHSCL HEART DISEASE OF [place] CORONARY ARTERY W/O ANG PCTRS Status: Chronic (10) DM type 2 (diabetes mellitus, type 2) Status: Chronic Qualifiers: Diabetes mellitus complication status: with neurologic complications (11) HTN (hypertension) Code(s): I10 - ESSENTIAL (PRIMARY) HYPERTENSION Status: Chronic (12) Migraine Code(s): G43.909 - MIGRAINE, UNSP, NOT INTRACTABLE, WITHOUT STATUS MIGRAINOSUS Status: Chronic Qualifiers: Migraine type: with aura (13) Muscle tension headache Code(s): G44.209 - TENSION-TYPE HEADACHE, UNSPECIFIED, NOT INTRACTABLE Status : Chronic (14) Nausea Code(s): R11.0 - NAUSEA Status: Chronic - Plan Plan: Plan: Medical unit with telemetry Neurology consult, recommendations appreciated MRI brain CTA head and neck without acute pathology, chronic stenosis Echo CT abdomen for abdominal pain Likely chronic constipation Continue other home medications as able Not a tPA candidate for resolution of symptoms/ low NIH score BP control Blood sugar control Pain control GI PPX DVT PPX
[2019-10-06] MEDS ORDERED: Aspirin Chewable 81 MG TAB ONE (12:55)
--- NOTE | 2019-10-06 13:27 | CT ---
CT ABDOMEN AND PELVIS WITHOUT IV CONTRAST: Date: 10/06/2019 INDICATION: History of persistent nausea and vomiting, and general abdominal pain. COMPARISON: Prior CT aortic dissection protocol dated 05/16/2018. FINDINGS: Lung bases are clear. There is a stable right hepatic lobe cyst. The gallbladder is surgically absent. Unopacified pancreas and adrenal glands are normal appearing. Spleen is normal appearing. There is IV contrast seen excreted within the renal collecting system consistent with IV contrast administration on CTA head performed earlier at 1000 hours. There are severe vascular calcifications involving the abdominopelvic vasculature. Unopacified large and small bowel appear within normal limits. There is moderate distention of the bl adder. No definite intraluminal filling defect is grossly evident. No free fluid is evident. There are scattered degenerative and osteoarthritic changes. No definite acute osseous abnormality is evident. IMPRESSION: 1. No definite acute CT abnormality. 2. Stable right hepatic lobe cyst. 3. Cholecystectomy. 4. Mild amount of retained stool within the colon. POS: CET
[2019-10-06 13:59] LABS: Troponin I Less than 0.010 ng/mL (< 0.028)
[2019-10-06] MEDS ORDERED: Iopamidol-370 76% 500 ML 1 ML ONE (14:30)
--- NOTE | 2019-10-06 15:26 | MRI ---
Exam: Brain MRI without contrast HISTORY: CVA type symptoms. Dizziness. COMPARISON: 06/19/2016 FINDINGS: Calvarial marrow signal intensity: Appropriate T1 signal Gradient echo sequence: No hemorrhage Brain parenchyma: No mass, mass effect or midline shift. Brain volume, age-appropriate. Cortical bryant-white matter differentiation: Preserved Restricted diffusion: Central arterial flow voids are maintained. Absent restricted diffusion White matter signal intensities:No significant T2, FLAIR white matter hyperintensities due to chronic small vessel ischemic changes Sinuses: Adequate aeration of paranasal sinuses. Partial opacification bilateral mastoid air cells. IMPRESSION: 1. Absent restricted diffusion. No acute infarct. 2. Partial opacification bilateral mastoid air correlate clinically.
[2019-10-06] MEDS: 1/2 NS w/KCL 20 mEq 1,000 ML IV SCH ×2 (16:33→16:51)
[2019-10-06] MEDS ORDERED: Heparin 1,000 UNITS/ML VIAL ONE (16:35)
[2019-10-06] MEDS: Heparin 5,000 UNITS/ML VIAL SC SCH (16:51)
[2019-10-06 17:04] LABS: Troponin I 0.012 ng/mL (< 0.028)
[2019-10-06] MEDS: cloNIDine 0.1 MG TAB PO PRN ×2 (17:04→19:03)
[2019-10-06] MEDS ORDERED: Ondansetron PF 4 MG/2 ML Vial ONE (17:21)
[2019-10-06] MEDS ORDERED: HYDROcodone/Acetaminophen 5/325 mg Tablet ONE (17:21)
[2019-10-06] MEDS: Ondansetron PF 4 MG/2 ML Vial IVP PRN ×2 (17:33→23:35)
[2019-10-06] MEDS: HYDROcodone/Acetaminophen 7.5/325 mg Tablet PO PRN (17:33)
[2019-10-06] MEDS ORDERED: cloNIDine 0.1 MG TAB ONE (19:01)
[2019-10-06] MEDS ORDERED: Acetaminophen 325 MG TAB ONE (19:02)
[2019-10-06] MEDS ORDERED: Meclizine HCl 12.5 MG TAB PO PRN (22:24)
[2019-10-06] MEDS ORDERED: Meclizine HCl 12.5 MG TAB PO SCH (22:30)
[2019-10-06] MEDS: Lisinopril 2.5 MG TAB PO SCH (23:17)
[2019-10-06] MEDS: Docusate 100 MG CAP PO SCH (23:18)
[2019-10-06] MEDS: Carvedilol 3.125 MG TAB PO SCH (23:18)
[2019-10-06] MEDS: Amitriptyline HCl 25 MG TAB PO SCH (23:18)
[2019-10-07] MEDS: Heparin 5,000 UNITS/ML VIAL SC SCH ×4 (01:49→21:43)
[2019-10-07 03:18] LABS: Bacteria/HPF None Seen HPF (None Seen); Bilirubin Negative (Negative); Blood, Urine Negative (Negative); Clarity Clear (Clear); Glucose, Urine (Dipstick) Normal (Negative); Leukocyte Negative Leu/uL (Negative); Nitrite Negative (Negative); Protein, Urine (Dipstick) Negative (Neg-Trace); Squamous Epithelial 0-3 HPF (0-3); Urobilinogen Normal mg/dL (Less than 2); WBC/HPF 0-3 HPF (0-3)
[2019-10-07 03:19] LABS: Urine Culture Reflex No No
[2019-10-07 04:53] VITALS: BMI 29.0
[2019-10-07 05:14] LABS: #Basophils 0.1 thou/uL (0.0-0.2); #Eosinphils 0.2 thou/uL (0.0-0.7); #Lymphocytes 2.1 thou/uL (1.20-3.40); #Monocytes 0.6 thou/uL (0.11-0.59); %Eosinophils 3.7 % (0.0-10.0); %Lymphocytes 35.4 % (21.0-51.0); %Neutrophils 49.9 % (42.0-75.0); Hemoglobin 12.7 g/dL (12.0-16.0); Mean Corpuscular HGB CONC 32.7 g/dL (32.0-36.0); Mean Corpuscular Hemoglobin 30.4 pg (27.0-31.0); Mean Corpuscular Volume 92.9 fL (78.0-98.0); Mean Platelet Volume 7.1 fL (7.4-10.4); Platelet Count 240 thou/uL (130-400); RBC Distribution Width 12.1 % (11.5-14.5); Red Blood Cell (RBC) Count 4.16 mill/uL (4.20-5.40); White Blood Cell (WBC) Count 5.9 thou/uL (4.8-10.8)
[2019-10-07 05:34] LABS: Anion Gap 10 mmol/L (10-20); BUN (Urea Nitrogen) 10 mg/dL (9.8-20.1); Calc. Creatinine Clearance 87 mL/min (70-130); Calcium 8.6 mg/dL (7.8-10.44); Carbon Dioxide 25 mmol/L (23-31); Chloride 104 mmol/L (98-107); Estimated GFR-MDRD 84; Glucose 80 mg/dL (80-115); Potassium 4.3 mmol/L (3.5-5.1); Sodium 135 mmol/L (136-145)
[2019-10-07] MEDS: HYDROcodone/Acetaminophen 7.5/325 mg Tablet PO PRN (09:01)
[2019-10-07] MEDS: Ondansetron PF 4 MG/2 ML Vial IVP PRN ×2 (09:05→20:44)
[2019-10-07] MEDS: Icosapent Ethyl 1 GM CAPSULE PO SCH (09:09)
[2019-10-07] MEDS: Aspirin 325 mg Enteric Coated Tablet PO SCH (09:15)
[2019-10-07] MEDS: Folic Acid 1 MG TAB PO SCH (09:15)
[2019-10-07] MEDS: cloNIDine 0.1 MG TAB PO PRN ×3 (09:19→21:41)
[2019-10-07] MEDS: Docusate 100 MG CAP PO SCH ×2 (09:32→21:43)
[2019-10-07] MEDS: 1/2 NS w/KCL 20 mEq 1,000 ML IV SCH (10:24)
[2019-10-07] MEDS: Lisinopril 2.5 MG TAB PO SCH ×2 (10:25→21:42)
[2019-10-07] MEDS: Carvedilol 3.125 MG TAB PO SCH ×2 (10:25→21:43)
[2019-10-07] MEDS ORDERED: Artificial Tears 18 DROP/0.9 ML EA EYE PRN (10:51)
[2019-10-07] MEDS ORDERED: Ondansetron PF 4 MG/2 ML Vial SLOW IVP SCH (13:45)
[2019-10-07] MEDS: Dihydroergotamine Mesylate 1 MG/ML AMP SLOW IVP SCH ×2 (14:39→22:05)
[2019-10-07] MEDS ORDERED: Ketorolac Tromethamine 30 MG/ML VIAL IVP PRN (17:45)
[2019-10-07] MEDS: Sodium Chloride 0.9% 1,000 ML IV SCH (20:36)
--- NOTE | 2019-10-07 20:53 | PDOC.HOSPP ---
- Subjective Encounter Date: 10/07/19 Encounter Time: 08:00 Subjective: No overnight events. This morning, complains of typical symptoms of her hemiplegic migraine including weakness on the right side of body and numbness on right side of face. Pending evaluation by neurology - Objective Vital Signs & Weight: Vital Signs (12 hours) Temp Pulse Resp BP BP Pulse Ox 10/07/19 19:49 98 F 103 H 16 196/90 H 96 10/07/19 15:00 98.1 F 90 16 188/85 H 96 10/07/19 11:52 98.3 F 84 16 153/74 H 94 L 10/07/19 10:25 176/88 H 10/07/19 10:00 158/74 H 10/07/19 09:20 92 L 10/07/19 09:19 176/88 H Weight Weight 158 lb 6.4 oz I&O: 10/06/19 10/07/19 10/08/19 06:59 06:59 06:59 Output Total 1325 Balance -1325 Result Diagrams: 10/07/19 04:34 10/07/19 04:34 Additional Labs: Accuchecks 10/07/19 10/07/19 10/07/19 17:28 12:19 06:23 POC Glucose 86 85 87 Radiology Reviewed by me: Yes Hospitalist ROS - Review of Systems Eyes: denies: pain, vision change, conjunctivae inflammation, eyelid inflammation, redness, other Respiratory: denies: cough, dry, shortness of breath, hemoptysis, SOB with excertion, pleuritic pain, sputum, wheezing, other Cardiovascular: denies: chest pain, palpitations, orthopnea, paroxysmal noc. dyspnea, edema, light headedness, other Gastrointestinal: reports: nausea (per patient, mostly with movement but had nausea during encounter while lying in bed), vomiting Genitourinary: denies: dysuria, frequency, incontinence, hematuria, retention, other Neurological: reports: weakness, numbness. denies: incoordination, change in speech, confusion, seizures - Medication Medications: Active Medications Generic Name Dose Route Start Last Admin Trade Name Freq PRN Reason Stop Dose Admin Acetaminophen 650 mg 10/06/19 12:17 10/06/19 19:04 Tylenol PO 650 mg Q4H PRN Administration Headache/Fever/Mild Pain (1-3) Amitriptyline HCl 25 mg 10/06/19 21:00 10/06/19 23:18 Elavil PO 25 mg HS YAKOV Administration Aspirin 325 mg 10/07/19 09:00 10/07/19 09:15 Ecotrin PO 325 mg DAILY YAKOV Administration Carvedilol 3.125 mg 10/06/19 21:00 10/07/19 10:25 Coreg PO 3.125 mg BID YAKOV Administration Clonidine 0.1 mg 10/06/19 12:12 10/07/19 15:50 Catapres PO 0.1 mg BIDPRN PRN Administration SBP>150 Dihydroergotamine Mesylate 0.5 mg 10/07/19 14:00 10/07/19 14:39 D.H.E. 45 SLOW IVP 10/08/19 06:01 0.5 mg Q8HR YAKOV Administration Docusate Sodium 100 mg 10/06/19 21:00 10/07/19 09:32 Colace PO Not Given BID [facility] Folic Acid 1 mg 10/07/19 09:00 10/07/19 09:15 Folvite PO 1 mg DAILY YAKOV Administration Heparin Sodium (Porcine) 5,000 units 10/06/19 15:00 10/07/19 15:50 Heparin SC 5,000 units TID [facility] Administration Lisinopril 2.5 mg 10/06/19 21:00 10/07/19 10:25 Zestril PO 2.5 mg BID YAKOV Administration Miscellaneous Medication 1 gm 10/07/19 09:00 10/07/19 09:09 Vascepa PO Not Given DAILY [facility] Pantoprazole Sodium 40 mg 10/07/19 09:00 10/07/19 09:15 Protonix PO 40 mg DAILY YAKOV Administration - Exam General Appearance: awake alert General - other findings: in mild distress ENT: normocephalic atraumatic, dry oral mucosa Neck: supple, symmetric, no JVD, no thyromegaly, no lymphadenopathy, no carotid bruit Heart: RRR, no murmur, no gallops, no rubs, normal peripheral pulses Respiratory: CTAB, no wheezes, no rales, no ronchi, normal chest expansion, no tachypnea, normal percussion Gastrointestinal: soft, non-tender, non-distended, normal bowel sounds, no palpable masses, no hepatomegaly, no splenomegaly, no bruit Neurological: cranial nerve grossly intact, no focal deficits. negative: facial droop, hemiplegia, speech deficit Neurological - other findings: soft touch: similar on both sides of face, both sides of extremities; EOMI Musculoskeletal - other findings: 4/5 throughout extremities Psychiatric: normal behavior, A&O x 3, flat affect Hosp A/P - Plan #hemiplegic migraine -considering PE, imaging findings, and reported similar symptoms in the past, likely worsening hemiplegic migraine rather than TIA/stroke Pending neurology recommendations Echo CT abdomen for abdominal pain Likely chronic constipation Continue other home medications as able BP control Blood sugar control Pain control Full code GI PPX DVT PPX
[2019-10-07] MEDS ORDERED: Nortriptyline HCl 25 MG CAP PO SCH (21:00)
[2019-10-07] MEDS: Gabapentin 300 MG CAP PO SCH (21:42)
[2019-10-07] MEDS: Baclofen 10 MG TAB PO SCH (21:42)
[2019-10-07] MEDS: Amitriptyline HCl 25 MG TAB PO SCH (21:43)
[2019-10-07] MEDS: Labetalol HCl 100 MG/20 ML VIAL SLOW IVP PRN (23:01)
--- NOTE | 2019-10-07 23:41 | CON ---
DATE OF CONSULTATION: 10/07/2019 CONSULTING PHYSICIAN: Hospitalist Service. IMPRESSION: 1. Migraine headaches. 2. Cervical disk disease. PLAN: 1. Start Pamelor 25 mg at bedtime. 2. Restart Neurontin and baclofen for her paresthesias. 3. Toradol as needed for residual headache. HISTORY OF PRESENT ILLNESS: Ms. Jack is a 69-year-old woman with history of chronic migraines. She has been seen by Dr. Herrera for cervical disk disease. She has been also seeing Dr. Vazquez for pain management. She has had cervical epidural steroid injection. She complains of paresthesias in both hands and feet. She reports pain from this is reasonably well controlled with Neurontin and baclofen. She was scheduled for surgery tomorrow. She was taken off her aspirin. Over the weekend, she developed one of her typical migraines other than it was somewhat more severe than usual. She usually suffers through them and does not take any abortive treatment. She tried Topamax in the past, but could not tolerate it. Since admission, she was given a single dose of DHE and Zofran that produced quite a bit of nausea and vomiting. She reports that the headache has essentially gone other than a dull background headache that is both frontal and occipital in location. She is still complaining of the neuropathic pain. She has never been on any other preventative treatments for her migraines. PAST MEDICAL HISTORY: Otherwise unremarkable. ALLERGIES: CIPRO, REGLAN. FAMILY HISTORY: Noncontributory. MEDICATIONS: List was reviewed. SOCIAL HISTORY: No tobacco or alcohol. She is . REVIEW OF SYSTEMS: Ten-system review of systems is otherwise negative. PHYSICAL EXAMINATION: GENERAL: She is a well-nourished elderly lady, in no acute distress. VITAL SIGNS: Blood pressures have been stable. Pulse is 88 and sinus rhythm. HEENT: Pupils equal and reactive. Conjunctivae clear. Oropharynx clear. NECK: Supple without lymphadenopathy. NEUROLOGIC: She is alert and cooperative. Her speech is fluent and clear. Her exam is nonfocal. No abnormal movements were seen. MRI of the brain was reviewed and is unremarkable. SUMMARY: Elderly lady with chronic migraines. She seems to be coming out of the most recent attack. She wants to get back on her medication for her neuropathic pain. She can follow up with Dr. Herrera for rescheduling her surgery. I would be happy to follow up with her as an outpatient for migraine management. Job ID: [id number]
[2019-10-08] MEDS: Ondansetron PF 4 MG/2 ML Vial IVP PRN (04:31)
[2019-10-08] MEDS: Labetalol HCl 100 MG/20 ML VIAL SLOW IVP PRN (04:37)
[2019-10-08] MEDS: Dihydroergotamine Mesylate 1 MG/ML AMP SLOW IVP SCH (05:54)
[2019-10-08] MEDS: Aspirin 325 mg Enteric Coated Tablet PO SCH (09:23)
[2019-10-08] MEDS: Baclofen 10 MG TAB PO SCH ×3 (09:23→21:05)
[2019-10-08] MEDS: Carvedilol 3.125 MG TAB PO SCH ×2 (09:25→16:30)
[2019-10-08] MEDS: Lisinopril 2.5 MG TAB PO SCH ×2 (09:25→21:04)
[2019-10-08] MEDS: Folic Acid 1 MG TAB PO SCH (09:25)
[2019-10-08] MEDS: Gabapentin 300 MG CAP PO SCH ×3 (09:25→21:05)
[2019-10-08] MEDS: Docusate 100 MG CAP PO SCH ×2 (09:25→21:05)
[2019-10-08] MEDS: Linaclotide [Linzess] 72 MCG PO SCH (09:26)
[2019-10-08] MEDS: Heparin 5,000 UNITS/ML VIAL SC SCH ×3 (09:26→21:05)
[2019-10-08] MEDS: Icosapent Ethyl 1 GM CAPSULE PO SCH (09:28)
--- NOTE | 2019-10-08 12:52 | PDOC.HOSPP ---
- Subjective Encounter Date: 10/08/19 Encounter Time: 08:00 Subjective: Overnight, patient retained urine so santos was placed. 1.3L of urine was drained. likely due to polypharmacy with significant antimotility profile. This morning, patient appears agitated, complains about visual hallucinations that she's experienced before but this time are longer, which can occur with hemiplegic migraines.and complains about mismanagement when relayed Neurology's recommendations to continue to be seen as an outpatient and possible discharge after reexamining her later today. Patient and demand that I consult cardiology for elevated blood pressure prior to receiving her medications, after which her blood pressure immediately decreased. I repeatedly informed patient and that will only discharge if I deem appropriate based on later encounter. - Objective Vital Signs & Weight: Vital Signs (12 hours) Temp Pulse Resp BP BP Pulse Ox 10/08/19 12:00 98.7 F 87 16 108/55 L 92 L 10/08/19 11:41 95 10/08/19 11:09 86 128/67 10/08/19 09:25 94 150/73 H 10/08/19 09:04 95 10/08/19 07:54 99.3 F 94 18 150/73 H 95 10/08/19 06:02 97 177/84 H 10/08/19 04:37 104 H 198/88 H 10/08/19 04:30 107 H 195/91 H Weight Weight 158 lb 6.4 oz I&O: 10/07/19 10/08/19 10/09/19 06:59 06:59 06:59 Output Total 1325 Balance -1325 Result Diagrams: 10/07/19 04:34 10/07/19 04:34 Additional Labs: Accuchecks 10/08/19 10/08/19 10/07/19 10:54 06:04 17:28 POC Glucose 86 100 86 Radiology Reviewed by me: Yes EKG Reviewed by me: Yes Hospitalist ROS - Review of Systems ROS unobtainable: due to mental status (patient agitated and refusing to answer questions) - Medication Medications: Active Medications Generic Name Dose Route Start Last Admin Trade Name Freq PRN Reason Stop Dose Admin Acetaminophen 650 mg 10/06/19 12:17 10/06/19 19:04 Tylenol PO 650 mg Q4H PRN Administration Headache/Fever/Mild Pain (1-3) Amitriptyline HCl 25 mg 10/06/19 21:00 10/07/19 21:43 Elavil PO 25 mg HS YAKOV Administration Aspirin 325 mg 10/07/19 09:00 10/08/19 09:23 Ecotrin PO 325 mg DAILY YAKOV Administration Baclofen 20 mg 10/07/19 21:00 10/08/19 09:23 Lioresal PO 20 mg TID YAKOV Administration Clonidine 0.1 mg 10/06/19 12:12 10/07/19 21:41 Catapres PO 0.1 mg BIDPRN PRN Administration SBP>150 Docusate Sodium 100 mg 10/06/19 21:00 10/08/19 09:25 Colace PO 100 mg BID YAKOV Administration Folic Acid 1 mg 10/07/19 09:00 10/08/19 09:25 Folvite PO 1 mg DAILY YAKOV Administration Gabapentin 600 mg 10/07/19 21:00 10/08/19 09:25 Neurontin PO 600 mg TID YAKOV Administration Heparin Sodium (Porcine) 5,000 units 10/06/19 15:00 10/08/19 09:26 Heparin SC 5,000 units TID YAKOV Administration Sodium Chloride 1,000 mls @ 50 mls/hr 10/07/19 18:30 10/07/19 20:36 Normal Saline 0.9% IV 1,000 mls .Q20H YAKOV Administration Labetalol HCl 10 mg 10/06/19 12:22 10/08/19 04:37 Normodyne SLOW IVP 2 ml Q4H PRN Administration SBP Greater Than 180 Miscellaneous Medication 1 gm 10/07/19 09:00 10/08/19 09:28 Vascepa PO Not Given DAILY YAKOV Nortriptyline HCl 25 mg 10/07/19 21:00 10/07/19 21:42 Pamelor PO 25 mg HS YAKOV Administration Ondansetron HCl 4 mg 10/07/19 18:14 10/08/19 04:31 Zofran IVP 4 mg Q6H PRN Administration Nausea/Vomiting Pantoprazole Sodium 40 mg 10/07/19 09:00 10/08/19 09:25 Protonix PO 40 mg DAILY YAKOV Administration Linaclotide [Linzess 1 each 10/08/19 09:00 10/08/19 09:26 ] 72 Mcg PO 1 each DAILY YAKOV Administration - Exam Psychiatric - other findings: agitated, refuses physical exam Hosp A/P - Plan #hemiplegic migraine -considering PE, imaging findings, and reported similar symptoms in the past, likely worsening hemiplegic migraine rather than TIA/stroke -per neurology, restarted baclofen and gabapentin, 3xdihydroergetamine to abort migraine, and nortiptyline (patient has been on amitriptyline); requested further recommendations considering today's prolonged episode of visual hallucinations -patient and agitated, not cooperating -CT angio shows possible left vertebral stenosis; will consult CT surgery; possibly repeat MRI considering worsening symptoms #urinary retention -patient voided 1.3 after placing santos (10/07) -patient is on multiple psychiatric and pain medications that can result in urinary retention -will attempt to adjust medications based on neurology input as well as patient' s wishes -continue santos #HTN -patient grossly hypertensive yesterday. -today BP well controlled after receiving antiHTN medications -will continue same regimen; can increase doses if hypertensive again Echo CT abdomen for abdominal pain Likely chronic constipation Continue other home medications as able BP control Blood sugar control Pain control Full code GI PPX DVT PPX
[2019-10-08] MEDS ORDERED: BUPRENORPHINE TRANSDERMAL TOP SCH (15:00)
[2019-10-08] MEDS: Sodium Chloride 0.9% 1,000 ML IV SCH (16:24)
[2019-10-08] MEDS ORDERED: Carvedilol 6.25 MG TAB PO SCH (17:00)
[2019-10-08] MEDS ORDERED: Lisinopril 5 MG TAB PO SCH ×2 (21:00)
[2019-10-08] MEDS: Amitriptyline HCl 25 MG TAB PO SCH (21:05)
--- NOTE | 2019-10-09 02:14 | CON ---
DATE OF CONSULTATION: HISTORY OF PRESENT ILLNESS: This is a 69-year-old female known to me from recent redo coronary bypass grafting, who presented to the hospital with a migraine, consistent with her history of migraines. She was scheduled to have a cervical spine surgery and had some paresthesias in her arms as well as the severe headache. The headache improved, but due to persistent discomfort, she was seen in the hospital where a CT angiogram was done and was interpreted as a left vertebral artery stenosis. On my review of the films, she also appears to have significant stenosis in her left internal carotid artery distal to the carotid bifurcation. Her brain MRI showed no evidence of a stroke. PAST MEDICAL HISTORY: Includes hypertension, dyslipidemia, coronary artery disease, chronic back pain, GERD, complex migraines occasionally with hemiparesis and diabetes. ALLERGIES: MULTIPLE. MEDICATIONS: Include: 1. Pepcid. 2. Trazodone. 3. Carbamazepine. 4. Neurontin. 5. Linzess. 6. Dexilant. 7. Clonidine. 8. Lasix. 9. Lisinopril. 10. Vascepa. 11. Elavil. 12. Celebrex. 13. Butrans. 14. Baclofen. 15. Zofran. 16. Coreg. 17. Aspirin. 18. Simvastatin. PHYSICAL EXAMINATION: GENERAL: On examination, she is lying comfortably in bed at this time with a recorded blood pressure of 130/60, heart rate of 70. NECK: No carotid bruits. LUNGS: Clear to auscultation. CARDIAC: Regular rate and rhythm. No murmurs. ABDOMEN: Soft and nontender. EXTREMITIES: No edema. NEUROLOGIC: Intact. PLAN: At this time, no further treatment for the vertebral artery stenosis is indicated. She has 2 dominant vertebral arteries with an intact basilar system. She does have significant disease in her left internal carotid artery and we will investigate that further with a carotid ultrasound in the coming weeks. She is scheduled to have her cervical spine surgery next week and I think that is appropriate. Job ID: [id number]
[2019-10-09] MEDS: cloNIDine 0.1 MG TAB PO PRN ×2 (04:26→12:55)
[2019-10-09] MEDS: Ondansetron PF 4 MG/2 ML Vial IVP PRN (08:42)
[2019-10-09] MEDS: Heparin 5,000 UNITS/ML VIAL SC SCH ×2 (08:45→15:14)
[2019-10-09] MEDS: Lisinopril 2.5 MG TAB PO SCH (08:46)
[2019-10-09] MEDS: Docusate 100 MG CAP PO SCH (08:47)
[2019-10-09] MEDS: Aspirin 325 mg Enteric Coated Tablet PO SCH (08:47)
[2019-10-09] MEDS: Baclofen 10 MG TAB PO SCH ×2 (08:47→15:15)
[2019-10-09] MEDS: Gabapentin 300 MG CAP PO SCH ×2 (08:48→15:15)
[2019-10-09] MEDS: Folic Acid 1 MG TAB PO SCH (08:48)
[2019-10-09] MEDS: Carvedilol 3.125 MG TAB PO SCH (08:48)
[2019-10-09] MEDS: Linaclotide [Linzess] 72 MCG PO SCH (08:49)
[2019-10-09] MEDS: Icosapent Ethyl 1 GM CAPSULE PO SCH (08:51)
[2019-10-09] MEDS: Sodium Chloride 0.9% 1,000 ML IV SCH (12:06)
[2019-10-09 15:48] VITALS: BP 154/74; TEMP 98.5
--- NOTE | 2019-10-11 15:28 | DIS ---
DATE OF ADMISSION: 10/06/2019 DATE OF DISCHARGE: 10/09/2019 HOSPITAL COURSE: Ms. Jack is a 69-year-old female with a medical history of hemiplegic migraines, coronary artery disease status post CABG in 2016, diabetes, hypertension, and cervical radiculopathy, who presented to the ED for altered mental status and weakness. The patient was found to have cervical spine surgery within a few days, but has had nausea and lower quadrant abdominal pain for the past week and got progressively weak to the point where she could barely walk, so came to the ED. In the ED, it was initially thought that she might be having a stroke; however, after imaging, the more likely etiology was an episode of hemiplegic migraine. However, imaging did show significant stenosis in one of the vertebral arteries, but the patient's brainstem circulation was not harmed based on evaluation by both Cardiothoracic Surgery and Neurology. As for the hemiplegic migraine, Neurology was consulted, but the patient's symptoms have resolved, and there was no change in her management compared to her management at home. The patient was discharged home with followup evaluation with her surgeons as well as primary care physician. She was hemodynamically stable, vitals were unremarkable. PHYSICAL EXAMINATION: GENERAL: In no apparent distress. Awake and alert. HEENT: Eyes, PERRL. ENT, normocephalic and atraumatic. Moist mucosa. HEART: No murmur. No gallops. No rubs. Normal peripheral pulses. RESPIRATORY: Clear to auscultation bilaterally. No wheezing, no rales, no rhonchi. Normal chest expansion. No tachypnea. GASTROINTESTINAL: Soft, nontender, nondistended. No palpable mass. EXTREMITIES: No edema. NEUROLOGIC: Cranial nerves grossly intact. MUSCULOSKELETAL: Basal right-sided weakness that comes with an episode of hemiplegic migraine. PSYCHIATRIC: Normal behavior. Alert and oriented x3. Flat affect. ASSESSMENT: Ms. Jack is a 69-year-old female who presented for suspected transient ischemic attack; however, after evaluation and consultation with Neurology and Cardiothoracic Surgery, she was diagnosed with an episode of hemiplegic migraine. 1. Hemiplegic migraines. Consulted Neurology regarding worsening of symptoms. The patient was given dihydroergotamine for both the migraines and felt improved on the day of discharge. The patient also reported visual hallucinations that was also improved on the day of discharge. In terms of frequency and at the time of discharge, she had no visual hallucinations. 2. Vertebral artery stenosis. a. CT Surgery and Neurology were consulted regarding the stenosis, and both deemed this to not be clinically significant and no further intervention was necessary. The patient's was informed regarding the finding and the input given by the subspecialty. 3. Urinary retention. a. The day following presentation, the patient voided 1.3 L after placing a Davis. b. The patient is on multiple psychiatric and pain medications that are most likely the culprit causing urinary retention. c. The patient and her were educated regarding urinary retention and were given a detailed list of the medications that are the likely culprit. We will request to follow up with her primary care physician to adjust the medications. d. The patient was discharged with a Davis catheter pending further evaluation of urinary retention. 4. Hypertension. 5. The patient has elevated hypertension the day following hospitalization. 6. The patient was started on oral home medications and was normotensive afterward; however, she did have additional episodes of hypotension during her inpatient stay. 7. The patient was educated regarding the relatively benign nature of mild hypotension episodes; however, was requested to follow up with her primary care physician in order to adjust antihypertensive medications concerning her somewhat labile blood pressure during inpatient stay. Job ID: [id number]
== END 2019-10-09 16:18 | disposition home or self-care (01) | DRG 103 ==
LOC: ERS 09:46 → ERHOLD 12:28 → 2SE 21:09
PROVIDERS: ADMIT Internal Medicine; ATTEND Internal Medicine
PROC: 0T9B70Z Drainage of Bladder with Drainage Device, Via Natural or Artificial Opening (ICD-10-PCS; principal; 2019-10-07)
DX: G43.409 Hemiplegic migraine, not intractable, without status migrainosus (principal); R33.9 Retention of urine, unspecified; K59.00 Constipation, unspecified; I25.10 Atherosclerotic heart disease of native coronary artery without angina pectoris; E78.5 Hyperlipidemia, unspecified; E11.9 Type 2 diabetes mellitus without complications; G89.4 Chronic pain syndrome; K21.9 Gastro-esophageal reflux disease without esophagitis; M54.5 Low back pain; G89.29 Other chronic pain; F32.9 Major depressive disorder, single episode, unspecified; F41.9 Anxiety disorder, unspecified; M50.30 Other cervical disc degeneration, unspecified cervical region; I65.02 Occlusion and stenosis of left vertebral artery; Z88.1 Allergy status to other antibiotic agents; Z95.1 Presence of aortocoronary bypass graft; Z79.899 Other long term (current) drug therapy; Z79.82 Long term (current) use of aspirin
CPT/HCPCS: 36415; 36416; 70450; 70496; 70498; 70551; 74176; 80048; 80053; 81001; 84484; 85025; 85610; 85730; 93005; 94760; 96360; J1110; J1644; J2405; J3480; Q9967

== ENCOUNTER 2019-10-10 08:28 | Emergency (ER) | payer MEDICARE ==
[2019-10-10 09:09] LABS: #Eosinphils 0.2 thou/uL (0.0-0.7); #Lymphocytes 1.6 thou/uL (1.20-3.40); #Monocytes 0.5 thou/uL (0.11-0.59); #Neutrophils 3.3 thou/uL (1.40-6.50); %Basophils 0.3 % (0.0-1.0); %Eosinophils 3.2 % (0.0-10.0); %Lymphocytes 27.9 % (21.0-51.0); %Monocytes 8.8 % (0.0-10.0); %Neutrophils 59.9 % (42.0-75.0); Hemoglobin 13.7 g/dL (12.0-16.0); Mean Corpuscular HGB CONC 34.5 g/dL (32.0-36.0); Mean Corpuscular Hemoglobin 31.3 pg (27.0-31.0); Mean Corpuscular Volume 90.7 fL (78.0-98.0); Mean Platelet Volume 6.7 fL (7.4-10.4); Platelet Count 252 thou/uL (130-400); RBC Distribution Width 11.8 % (11.5-14.5); Red Blood Cell (RBC) Count 4.37 mill/uL (4.20-5.40); White Blood Cell (WBC) Count 5.6 thou/uL (4.8-10.8)
[2019-10-10 09:32] LABS: ALT (SGPT) 9 U/L (8-55); AST (SGOT) 15 U/L (5-34); Albumin 3.6 g/dL (3.4-4.8); Alkaline Phosphatase 87 U/L (40-110); Anion Gap 13 mmol/L (10-20); BUN (Urea Nitrogen) 5 mg/dL (9.8-20.1); Bilirubin, Total 0.4 mg/dL (0.2-1.2); Calc. Creatinine Clearance 0 mL/min (70-130); Carbon Dioxide 24 mmol/L (23-31); Chloride 102 mmol/L (98-107); Estimated GFR-MDRD Greater than 90; Globulin 2.6 g/dL (2.4-3.5); Glucose 92 mg/dL (80-115); Lipase 19 U/L (8-78); Potassium 3.6 mmol/L (3.5-5.1); Protein, Total 6.2 g/dL (6.0-8.3); Sodium 135 mmol/L (136-145)
[2019-10-10] MEDS ORDERED: Ondansetron PF 4 MG/2 ML Vial ONE (09:43)
[2019-10-10] MEDS ORDERED: Ketorolac Tromethamine 30 MG/ML VIAL ONE (10:06)
[2019-10-10] MEDS ORDERED: hydrALAZINE 20 MG/ML VIAL ONE (10:06)
[2019-10-10 10:57] LABS: Bilirubin Negative (Negative); Blood, Urine Negative (Negative); Clarity Clear (Clear); Glucose, Urine (Dipstick) Normal (Negative); Leukocyte Negative Leu/uL (Negative); Nitrite Negative (Negative); Protein, Urine (Dipstick) Negative (Neg-Trace); Urobilinogen Normal mg/dL (Less than 2)
[2019-10-10] MEDS ORDERED: Cyclobenzaprine 10 MG TAB ONE (11:28)
[2019-10-10] MEDS ORDERED: Diazepam 10 MG/2 ML SYRINGE ONE (11:36)
--- NOTE | 2019-10-10 12:35 | CT ---
CT OF THE BRAIN WITHOUT CONTRAST: Date: 10/10/2019 COMPARISON: 10/06/2019. HISTORY: Hypertension and headache. TECHNIQUE: Multiple contiguous axial images were obtained in a CT of the brain without contrast. FINDINGS: The brain is normal in morphology and attenuation without focal lesions or confluent areas of infarct ion. There is no evidence of hydrocephalus, intracranial hemorrhage, or extra-axial fluid collection. The calvarium and overlying soft tissues are unremarkable. The visualized paranasal sinuses and masto id air cells are well aerated. IMPRESSION: No evidence of acute intracranial abnormality. POS: TPC
== END 2019-10-10 15:31 | disposition home or self-care (01) ==
LOC: ERS 08:28
DX: T83.038A Leakage of other urinary catheter, initial encounter (principal); G43.909 Migraine, unspecified, not intractable, without status migrainosus; R53.1 Weakness; R11.0 Nausea; I10 Essential (primary) hypertension; E78.5 Hyperlipidemia, unspecified; E78.00 Pure hypercholesterolemia, unspecified; I25.10 Atherosclerotic heart disease of native coronary artery without angina pectoris; F41.9 Anxiety disorder, unspecified; F32.9 Major depressive disorder, single episode, unspecified; Z79.82 Long term (current) use of aspirin; Z79.899 Other long term (current) drug therapy
CPT/HCPCS: 36415; 70450; 80053; 81003; 83690; 85025; 93005; 96361; 96374; 96375; J0360; J1885; J2405; J3360

== ENCOUNTER 2019-10-24 05:47 | Inpatient (IN) | payer MEDICARE ==
[2019-10-24] MEDS ORDERED: Thrombin 5000 UNITS/5 ML VIAL ONE (06:24)
[2019-10-24 06:33] LABS: #Basophils 0.1 thou/uL (0.0-0.2); #Eosinphils 0.3 thou/uL (0.0-0.7); #Lymphocytes 1.9 thou/uL (1.20-3.40); #Monocytes 0.7 thou/uL (0.11-0.59); #Neutrophils 3.8 thou/uL (1.40-6.50); %Basophils 1.4 % (0.0-1.0); %Lymphocytes 28.1 % (21.0-51.0); %Monocytes 10.6 % (0.0-10.0); %Neutrophils 55.9 % (42.0-75.0); Hemoglobin 13.5 g/dL (12.0-16.0); Mean Corpuscular HGB CONC 34.3 g/dL (32.0-36.0); Mean Corpuscular Hemoglobin 31.4 pg (27.0-31.0); Mean Corpuscular Volume 91.6 fL (78.0-98.0); Mean Platelet Volume 6.5 fL (7.4-10.4); Platelet Count 328 thou/uL (130-400); RBC Distribution Width 12.4 % (11.5-14.5); Red Blood Cell (RBC) Count 4.29 mill/uL (4.20-5.40); White Blood Cell (WBC) Count 6.8 thou/uL (4.8-10.8)
[2019-10-24 06:52] LABS: Anion Gap 13 mmol/L (10-20); BUN (Urea Nitrogen) 11 mg/dL (9.8-20.1); Calc. Creatinine Clearance 63 mL/min (70-130); Calcium 9.4 mg/dL (7.8-10.44); Carbon Dioxide 28 mmol/L (23-31); Chloride 97 mmol/L (98-107); Estimated GFR-MDRD 59; Glucose 111 mg/dL (80-115); Potassium 4.3 mmol/L (3.5-5.1); Sodium 134 mmol/L (136-145)
[2019-10-24] MEDS ORDERED: Scopolamine 1.5 mg/72 hour Patch ONE (06:53)
[2019-10-24] MEDS ORDERED: Propofol 1,000 MG/100 ML VIAL IV ONE (06:56)
[2019-10-24] MEDS ORDERED: Lidocaine 2% Jelly 5 ML TUBE ONE (06:56)
[2019-10-24] MEDS ORDERED: Fentanyl 100 MCG/2 ML VIAL ONE ×3 (06:56→09:44)
[2019-10-24] MEDS ORDERED: Promethazine HCl 12.5 MG SUPP ONE (07:37)
[2019-10-24] MEDS ORDERED: Promethazine HCl 25 MG/ML VIAL ONE (07:37)
[2019-10-24] MEDS ORDERED: Phenylephrine HCL 10 MG/ML VIAL ONE (07:42)
[2019-10-24] MEDS ORDERED: diphenhydrAMINE 50 MG/ML VIAL IVP PRN (09:14)
[2019-10-24] MEDS ORDERED: Bisacodyl 10 MG SUPP PR PRN (09:14)
[2019-10-24] MEDS ORDERED: Morphine 2 MG/ML SYRINGE SLOW IVP PRN (09:14)
[2019-10-24] MEDS ORDERED: Ondansetron PF 4 MG/2 ML Vial IVP PRN (09:14)
[2019-10-24] MEDS ORDERED: Acetaminophen 325 MG TAB PO PRN (09:14)
[2019-10-24] MEDS ORDERED: Acetaminophen/Codeine 30-300mg Tablet PO PRN ×2 (09:14)
[2019-10-24] MEDS ORDERED: Mag-Al 1200 mg/1200 mg/30 ML UDCUP PO PRN (09:14)
[2019-10-24] MEDS ORDERED: tiZANidine HCl 4 MG TAB PO PRN (09:14)
[2019-10-24] MEDS ORDERED: Dicyclomine 10 MG CAP PO PRN ×2 (09:15→09:51)
[2019-10-24] MEDS ORDERED: Diazepam 2 MG TAB PO PRN ×2 (09:15→09:50)
[2019-10-24] MEDS ORDERED: cloNIDine 0.1 MG TAB PO PRN (09:15)
[2019-10-24] MEDS ORDERED: ESTRADIOL VAG SCH (09:15)
[2019-10-24] MEDS ORDERED: Ondansetron ODT 4 MG TAB PO PRN (09:15)
[2019-10-24] MEDS ORDERED: BUPRENORPHINE 20 MCG TD SCH (09:15)
[2019-10-24] MEDS ORDERED: Ondansetron HCl/PF 4 MG/2 ML Vial IVP PRN (09:24)
[2019-10-24] MEDS ORDERED: Promethazine HCl 25 MG/ML VIAL IM PRN (09:24)
[2019-10-24] MEDS ORDERED: Promethazine HCl 25 MG/ML VIAL SLOW IVP PRN (09:24)
[2019-10-24] MEDS ORDERED: Ketamine 50 MG/ML (10ML VIAL) SLOW IVP SCH (09:30)
--- NOTE | 2019-10-24 09:38 | OP ---
DATE OF PROCEDURE: 10/24/2019 SINK CUTTER: Rashard Tiwari PA-C INDICATION: Pain. DIAGNOSIS: Cervical radiculopathy. PROCEDURE PERFORMED: Anterior cervical diskectomy and fusion, C3 to C6. ANESTHESIA: General. DESCRIPTION OF PROCEDURE: The patient was brought into the operating room and placed under general anesthesia. She was placed on the table in a supine position. A transverse incision was planned over the lateral aspect of the neck on the right. After prepping and draping and after an appropriate preoperative pause, the incision was created. The underlying platysma muscle was identified and incised. A blunt tissue plane anterior to the sternocleidomastoid muscle was used to gain access to the prevertebral space. Self-retaining retractors were then placed in the wound for optimal exposure. After confirming the appropriate levels with C-arm fluoroscopy, an annulotomy was performed in the C5-C6 disk space. Under distraction with distraction pins, the disk material as well as anterior and posterior osteophytes were removed. After completing the decompression, a 7-mm lordotic PEEK cage packed with allograft and autograft material was placed within the interbody space. We then redirected our attention to the level above at C4-C5, where again an annulotomy was performed. With the aid of distraction pins, the disk material as well as anterior and posterior osteophytes were removed. After decompressing the segment, a 7-mm lordotic PEEK cage packed with allograft and autograft material was placed within the interbody space. We then redirected our attention to the level above at C3-C4, where an annulotomy was performed. All disk material as well as anterior and posterior osteophytes were removed. After completing the decompression, a 6-mm lordotic PEEK cage packed with allograft and autograft material was placed within the interbody space. An anterior cervical plate was then fashioned to the front of spine and secured with a total of eight screws. Midline and lateral structures were inspected and found to be free from significant trauma. The wound was irrigated. Hemostasis was maintained throughout. The wound was then closed in anatomic layers and a pressure dressing was applied. There were no known procedural complications. Job ID: [id number]
[2019-10-24] MEDS ORDERED: Dexamethasone 20 MG/5 ML VIAL ONE (09:39)
[2019-10-24] MEDS ORDERED: Ondansetron PF 4 MG/2 ML Vial ONE (09:39)
[2019-10-24] MEDS ORDERED: Glycopyrrolate 0.2 MG/ML 5 ML SYRINGE ONE (09:39)
[2019-10-24] MEDS ORDERED: Rocuronium Bromide 10 MG/ML (10ML VIAL) ONE (09:39)
[2019-10-24] MEDS ORDERED: PHENYLEPHRINE-NS 100 MCG/ML 10 ML SYRINGE ONE (09:39)
[2019-10-24] MEDS ORDERED: EPHEDRINE 25 MG/5 ML SYRINGE ONE (09:39)
[2019-10-24] MEDS ORDERED: Lidocaine 1% PF 5 ML VIAL ONE (09:39)
[2019-10-24] MEDS ORDERED: PROPOFOL 200 MG/20 ML VIAL ONE (09:39)
[2019-10-24] MEDS ORDERED: BUPRENORPHINE 20 MCG TOP SCH (10:15)
[2019-10-24] MEDS ORDERED: Ketamine 50 MG/ML (10ML VIAL) ONE (10:24)
[2019-10-24] MEDS ORDERED: HYDROmorphone 2 MG/ML VIAL ONE (10:53)
[2019-10-24] MEDS ORDERED: Midazolam HCl 2 mg/2 ml Vial ONE (11:12)
[2019-10-24] MEDS ORDERED: Estradiol 0.01% Vaginal Cream 42.5 gm Tube VAG SCH (12:00)
[2019-10-24] MEDS: CEFAZOLIN 2 GM in Premix Bag 1 BAG IVPB SCH ×2 (14:50→21:22)
[2019-10-24] MEDS: Gabapentin 300 MG CAP PO SCH ×2 (14:51→20:44)
[2019-10-24] MEDS: Baclofen 10 MG TAB PO SCH ×2 (14:51→20:44)
[2019-10-24] MEDS: Sodium Chloride 0.9% 1,000 ML IV SCH ×2 (14:51→21:55)
[2019-10-24] MEDS ORDERED: Non-Formulary Item 1 EACH (Gabapentin [Gabapentin] 1 TAB) PO SCH (15:00)
[2019-10-24 15:59] VITALS: BMI 27.4
[2019-10-24] MEDS: HYDROcodone/Acetaminophen 10/325 mg Tablet PO PRN (17:52)
[2019-10-24] MEDS: Lisinopril 2.5 MG TAB PO SCH (20:45)
[2019-10-24] MEDS: Carvedilol 3.125 MG TAB PO SCH (20:45)
[2019-10-24] MEDS: cycloSPORINE 0.05% Ophthalmic Droperette EA EYE SCH (20:46)
[2019-10-24] MEDS ORDERED: CARBAMAZEPINE 100 MG PO SCH (21:00)
[2019-10-24] MEDS ORDERED: Atorvastatin Calcium 20 MG TAB PO SCH (21:00)
[2019-10-24] MEDS ORDERED: Simvastatin 40 MG TAB PO SCH (21:00)
[2019-10-24] MEDS ORDERED: Famotidine 20 MG TAB PO SCH (21:00)
[2019-10-24] MEDS ORDERED: traZODone HCl 50 MG TAB PO SCH (21:00)
[2019-10-24] MEDS ORDERED: Amitriptyline HCl 25 MG TAB PO SCH (21:00)
[2019-10-24] MEDS ORDERED: carBAMazepine 100 mg Chewable Tablet PO SCH (21:00)
[2019-10-24] MEDS ORDERED: FAMOTIDINE 40 MG PO SCH (21:00)
[2019-10-24] MEDS ORDERED: cycloSPORINE 0.05% Ophthalmic Droperette EA EYE SCH (21:00)
[2019-10-25] MEDS: HYDROcodone/Acetaminophen 10/325 mg Tablet PO PRN (04:56)
[2019-10-25] MEDS ORDERED: LINACLOTIDE 72 MCG PO SCH (09:00)
[2019-10-25] MEDS ORDERED: Furosemide 20 MG TAB PO SCH (09:00)
[2019-10-25] MEDS ORDERED: Non-Formulary Item 1 EACH (Celecoxib [Celebrex] 200 MG) PO SCH (09:00)
[2019-10-25] MEDS ORDERED: CeleCOXIB 100 MG CAP PO SCH (09:00)
[2019-10-25] MEDS ORDERED: ICOSAPENT ETHYL 1 GM PO SCH (09:00)
[2019-10-25] MEDS ORDERED: Non-Formulary Item 1 EACH (Biotin [Biotin] 1 MG) PO SCH (09:00)
[2019-10-25] MEDS ORDERED: Linaclotide [Linzess] 72 MCG PO SCH (09:00)
[2019-10-25] MEDS ORDERED: Folic Acid 1 MG TAB PO SCH (09:00)
[2019-10-25] MEDS ORDERED: Icosapent Ethyl 1 GM CAPSULE PO SCH (09:00)
[2019-10-25] MEDS ORDERED: Non-Formulary Item 1 EACH (Dexlansoprazole [Dexilant] 60 MG) PO SCH (09:00)
[2019-10-25 09:01] VITALS: BP 132/83; TEMP 97.7
[2019-10-25] MEDS: Gabapentin 300 MG CAP PO SCH (09:52)
[2019-10-25] MEDS: Baclofen 10 MG TAB PO SCH (09:52)
[2019-10-25] MEDS: Carvedilol 3.125 MG TAB PO SCH (09:53)
[2019-10-25] MEDS: Lisinopril 2.5 MG TAB PO SCH (09:53)
[2019-10-25] MEDS: cycloSPORINE 0.05% Ophthalmic Droperette EA EYE SCH (09:54)
--- NOTE | 2019-10-27 12:02 | DIS ---
DATE OF ADMISSION: 10/24/2019 DATE OF DISCHARGE: 10/25/2019 HOSPITAL COURSE: The patient is a 69-year-old female, who is status post C3 through C6 ACDF. Following the surgery, she was transitioned to the Med/Surg floor, where her pain has been well controlled with p.o. medication, she is tolerating a regular diet, and she is voiding appropriately. She has been up ambulating in the department without any difficulty. On my exam this morning, she is awake, alert, in no acute distress. She has free active range of motion of all extremities. No focal motor weakness. No reflex asymmetry. Incision is soft and dry. We will go ahead and dismiss the patient to home. I have discussed home care precautions. The patient will follow up with Dr. Herrera in 2 weeks. Job ID: [id number]
== END 2019-10-25 12:01 | disposition home or self-care (01) | DRG 30 ==
LOC: SURG A 05:47
PROVIDERS: ADMIT Neurological Surgery; ATTEND Neurological Surgery
PROC: 0RG20A0 Fusion of 2 or more Cervical Vertebral Joints with Interbody Fusion Device, Anterior Approach, Anterior Column, Open Approach (ICD-10-PCS; principal; 2019-10-24)
PROC: 0RB30ZZ Excision of Cervical Vertebral Disc, Open Approach (ICD-10-PCS; 2019-10-24)
DX: M54.12 Radiculopathy, cervical region (principal); I10 Essential (primary) hypertension; E78.5 Hyperlipidemia, unspecified; I25.10 Atherosclerotic heart disease of native coronary artery without angina pectoris; G43.409 Hemiplegic migraine, not intractable, without status migrainosus; F41.9 Anxiety disorder, unspecified; K58.9 Irritable bowel syndrome, unspecified; Z85.828 Personal history of other malignant neoplasm of skin; Z88.1 Allergy status to other antibiotic agents; Z79.899 Other long term (current) drug therapy; Z79.82 Long term (current) use of aspirin
CPT/HCPCS: 36415; 76000; 80048; 85025; C1713; C1776; J0690; J1170; J2250; J2370; J2550; J2704; J3010

== ENCOUNTER 2019-11-04 01:26 | Emergency (ER) | payer MEDICARE ==
[2019-11-04 02:04] LABS: #Eosinphils 0.3 thou/uL (0.0-0.7); #Monocytes 0.8 thou/uL (0.11-0.59); #Neutrophils 2.5 thou/uL (1.40-6.50); %Basophils 0.6 % (0.0-1.0); %Eosinophils 5.1 % (0.0-10.0); %Lymphocytes 35.4 % (21.0-51.0); %Monocytes 13.7 % (0.0-10.0); %Neutrophils 45.1 % (42.0-75.0); Hemoglobin 12.7 g/dL (12.0-16.0); Mean Corpuscular HGB CONC 34.4 g/dL (32.0-36.0); Mean Corpuscular Hemoglobin 30.8 pg (27.0-31.0); Mean Corpuscular Volume 89.7 fL (78.0-98.0); Mean Platelet Volume 6.3 fL (7.4-10.4); Platelet Count 302 thou/uL (130-400); RBC Distribution Width 11.9 % (11.5-14.5); Red Blood Cell (RBC) Count 4.11 mill/uL (4.20-5.40); White Blood Cell (WBC) Count 5.6 thou/uL (4.8-10.8)
[2019-11-04] MEDS ORDERED: Ketorolac Tromethamine 30 MG/ML VIAL ONE (02:04)
[2019-11-04 02:30] LABS: ALT (SGPT) 12 U/L (8-55); AST (SGOT) 16 U/L (5-34); Albumin 3.6 g/dL (3.4-4.8); Alkaline Phosphatase 103 U/L (40-110); Anion Gap 12 mmol/L (10-20); BUN (Urea Nitrogen) 4 mg/dL (9.8-20.1); Bilirubin, Total 0.3 mg/dL (0.2-1.2); Calc. Creatinine Clearance 0 mL/min (70-130); Calcium 8.9 mg/dL (7.8-10.44); Carbon Dioxide 28 mmol/L (23-31); Chloride 91 mmol/L (98-107); Estimated GFR-MDRD 71; Globulin 2.7 g/dL (2.4-3.5); Glucose 131 mg/dL (80-115); Lipase 22 U/L (8-78); Potassium 3.8 mmol/L (3.5-5.1); Protein, Total 6.3 g/dL (6.0-8.3); Sodium 127 mmol/L (136-145)
== END 2019-11-04 03:01 | disposition home or self-care (01) ==
LOC: ERS 01:26
DX: I10 Essential (primary) hypertension (principal); G43.909 Migraine, unspecified, not intractable, without status migrainosus; I25.10 Atherosclerotic heart disease of native coronary artery without angina pectoris; E78.5 Hyperlipidemia, unspecified; E78.00 Pure hypercholesterolemia, unspecified; F41.9 Anxiety disorder, unspecified; F32.9 Major depressive disorder, single episode, unspecified; Z79.899 Other long term (current) drug therapy; Z79.82 Long term (current) use of aspirin
CPT/HCPCS: 80053; 83690; 84484; 85025; 93005; 96374; J1885

== ENCOUNTER 2019-11-05 11:13 | Emergency (ER) | payer MEDICARE ==
[2019-11-05] MEDS ORDERED: Morphine 4 MG/ML VIAL ONE (12:13)
[2019-11-05] MEDS ORDERED: Ondansetron PF 4 MG/2 ML Vial ONE ×2 (12:13→14:33)
[2019-11-05 12:26] LABS: #Basophils 0.1 thou/uL (0.0-0.2); #Eosinphils 0.3 thou/uL (0.0-0.7); #Lymphocytes 1.7 thou/uL (1.20-3.40); #Monocytes 0.7 thou/uL (0.11-0.59); #Neutrophils 5.6 thou/uL (1.40-6.50); %Basophils 0.9 % (0.0-1.0); %Eosinophils 3.7 % (0.0-10.0); %Monocytes 8.6 % (0.0-10.0); %Neutrophils 66.9 % (42.0-75.0); Hemoglobin 13.6 g/dL (12.0-16.0); Mean Corpuscular HGB CONC 34.8 g/dL (32.0-36.0); Mean Corpuscular Hemoglobin 31.5 pg (27.0-31.0); Mean Corpuscular Volume 90.4 fL (78.0-98.0); Mean Platelet Volume 6.2 fL (7.4-10.4); Platelet Count 289 thou/uL (130-400); RBC Distribution Width 11.9 % (11.5-14.5); Red Blood Cell (RBC) Count 4.31 mill/uL (4.20-5.40); White Blood Cell (WBC) Count 8.4 thou/uL (4.8-10.8)
[2019-11-05 12:33] LABS: PTT 33.7 SEC (22.9-36.1)
[2019-11-05 12:34] LABS: D-Dimer Test 1.75 *mcg/mL (0.27-0.43)
[2019-11-05 12:47] LABS: ALT (SGPT) 10 U/L (8-55); AST (SGOT) 16 U/L (5-34); Albumin 3.7 g/dL (3.4-4.8); Alkaline Phosphatase 110 U/L (40-110); Anion Gap 14 mmol/L (10-20); BUN (Urea Nitrogen) 5 mg/dL (9.8-20.1); Bilirubin, Total 0.3 mg/dL (0.2-1.2); CK (CPK) 30 U/L (29-168); Calc. Creatinine Clearance 0 mL/min (70-130); Calcium 9.1 mg/dL (7.8-10.44); Carbon Dioxide 25 mmol/L (23-31); Chloride 90 mmol/L (98-107); Estimated GFR-MDRD 47; Globulin 2.6 g/dL (2.4-3.5); Glucose 108 mg/dL (80-115); Potassium 3.8 mmol/L (3.5-5.1); Protein, Total 6.3 g/dL (6.0-8.3); Sodium 125 mmol/L (136-145)
--- NOTE | 2019-11-05 13:03 | CT ---
BRAIN CT WITHOUT IV CONTRAST: Date: 11/05/2019 HISTORY: Injury from trauma, head and neck pain, prior neck surgery. FINDINGS: No focal mass or midline shift. No intra or extra-axial hemorrhage. Sinuses and mastoids are clear. IMPRESSION: No significant acute intracranial process. No mass or bleed. Stable from 10/10/2019. POS: [facility]
--- NOTE | 2019-11-05 13:07 | CT ---
CT OF THE CERVICAL SPINE WITHOUT CONTRAST: Date: 11/05/2019 INDICATION: History of trauma with neck pain. COMPARISON: MRI cervical spine dated 06/16/[address] cervical spine dated 02/25/2016. FINDINGS: Since the comparison examination, there has been interval performance of an ACDF spanning C3 through C6. Spinal alignment is preserved. There is mild multilevel spondylosis. No acute fracture is demonst rated. Craniocervical junction is normal appearing. Prevertebral soft tissues appear within normal li mits. Lung apices are clear. IMPRESSION: 1. No acute fracture or subluxation. 2. Interval postoperative change of the cervical spine consistent with ACDF spanning C3 through C6. POS: [facility]
--- NOTE | 2019-11-05 13:09 | RAD ---
CHEST 1 VIEW: Date: 11/05/2019 HISTORY: Injury from trauma, right-sided numbness, neck pain, prior neck surgery. COMPARISON: 05/15/2018. FINDINGS: Anterior cervical fusion changes of the cervical spine. Postop midline sternotomy. Mild right hemidia phragm elevation. No confluent pneumonia, overt edema, or pleural effusion. IMPRESSION: No significant acute intrathoracic disease. POS: [facility]
[2019-11-05 13:41] LABS: Bilirubin Negative (Negative); Blood, Urine Negative (Negative); Clarity Clear (Clear); Glucose, Urine (Dipstick) Normal (Negative); Leukocyte Negative Leu/uL (Negative); Nitrite Negative (Negative); Protein, Urine (Dipstick) Negative (Neg-Trace); Urobilinogen Normal mg/dL (Less than 2)
--- NOTE | 2019-11-05 13:47 | CT ---
CT PULMONARY ANGIOGRAM WITH IV CONTRAST AND 3-D POSTPROCESSING: HISTORY:Right-sided numbness and neck pain. Neck surgery 2 weeks ago FINDINGS: There is good contrast opacification of the pulmonary arterial vasculature without filling defects to suggest pulmonary embolism. The thoracic aorta is well opacified without aneurysm or dissection. No pleural or pericardial effusions are seen. No pneumothoraces, focal areas of consolidation or lung nodules are noted. There is a mild infiltrate versus atelectatic change in the right lower lung. There is a calcified granuloma in the right lung base There are degenerative changes in the spine. Upper abdominal tomograms demonstrate a 9 mm cyst in the dome of the liver and changes of cholecystec kristy. IMPRESSION: No CT evidence of pulmonary embolism.
[2019-11-05] MEDS ORDERED: Ketorolac Tromethamine 60 MG/2 ML VIAL ONE (14:14)
--- NOTE | 2019-11-08 15:49 | EKG ---
Test Reason : Blood Pressure : / mmHG Vent. Rate : 085 BPM Atrial Rate : 085 BPM P-R Int : 154 ms QRS Dur : 086 ms QT Int : 424 ms P-R-T Axes : 050 039 033 degrees QTc Int : 504 ms Normal sinus rhythm Normal ECG Confirmed by CECY MONAE, HOMERO ([id number]), news assignment editor CHIDI UNDERWOOD ([id number]) on 11/08/2019 3:49:10 PM Referred By: Confirmed By:HOMERO SAM MD
== END 2019-11-05 14:54 | disposition home or self-care (01) ==
LOC: ERS 11:13
DX: G89.18 Other acute postprocedural pain (principal); M54.2 Cervicalgia; R42 Dizziness and giddiness; G43.909 Migraine, unspecified, not intractable, without status migrainosus; I25.10 Atherosclerotic heart disease of native coronary artery without angina pectoris; E78.5 Hyperlipidemia, unspecified; E78.00 Pure hypercholesterolemia, unspecified; I10 Essential (primary) hypertension; F41.9 Anxiety disorder, unspecified; F32.9 Major depressive disorder, single episode, unspecified; Z79.899 Other long term (current) drug therapy; Z79.82 Long term (current) use of aspirin
CPT/HCPCS: 36415; 51701; 70450; 71045; 71275; 72125; 80053; 81003; 82550; 85025; 85379; 85610; 85730; 93005; 96361; 96372; 96374; 96375; 96376; A4353; J1885; J2270; J2405

== ENCOUNTER 2019-11-19 11:23 | Inpatient (IN) | payer MEDICARE ==
--- NOTE | 2019-11-19 11:55 | RAD ---
EXAM: Single view of the chest HISTORY: Chest pain COMPARISON: 11/05/2019 FINDINGS: Single view of the chest shows a normal sized cardiomediastinal silhouette. The patient is status post sternotomy. There is no evidence of consolidation, mass, or pleural effusion. The bones are unremarkable. IMPRESSION: No evidence of acute cardiopulmonary disease
[2019-11-19 11:59] LABS: #Eosinphils 0.1 thou/uL (0.0-0.7); #Lymphocytes 1.5 thou/uL (1.20-3.40); #Monocytes 0.9 thou/uL (0.11-0.59); #Neutrophils 4.3 thou/uL (1.40-6.50); %Basophils 0.5 % (0.0-1.0); %Eosinophils 1.5 % (0.0-10.0); %Lymphocytes 22.3 % (21.0-51.0); %Monocytes 12.4 % (0.0-10.0); %Neutrophils 63.3 % (42.0-75.0); Hemoglobin 12.8 g/dL (12.0-16.0); Mean Corpuscular HGB CONC 35.2 g/dL (32.0-36.0); Mean Corpuscular Hemoglobin 31.5 pg (27.0-31.0); Mean Corpuscular Volume 89.6 fL (78.0-98.0); Mean Platelet Volume 6.5 fL (7.4-10.4); Platelet Count 312 thou/uL (130-400); RBC Distribution Width 11.9 % (11.5-14.5); Red Blood Cell (RBC) Count 4.07 mill/uL (4.20-5.40); White Blood Cell (WBC) Count 6.9 thou/uL (4.8-10.8)
[2019-11-19 12:00] LABS: Bilirubin Negative (Negative); Blood, Urine Negative (Negative); Clarity Clear (Clear); Glucose, Urine (Dipstick) Normal (Negative); Leukocyte Negative Leu/uL (Negative); Nitrite Negative (Negative); Protein, Urine (Dipstick) 10 mg/dL (Neg-Trace)
--- NOTE | 2019-11-19 12:08 | CT ---
EXAM: CT brain without contrast HISTORY: Altered mental status COMPARISON: 11/05/2019 TECHNIQUE: Multiple contiguous axial images were obtained and a CT of the brain without contrast. FINDINGS: There are scattered hypodensities in the subcortical and periventricular white matter consi stent with small vessel ischemic disease. There is no evidence of hydrocephalus, intracranial hemorrhage, or extra-axial fluid collection. The calvarium and overlying soft tissues are unremarkable. The visualized paranasal sinuses and masto id air cells are well aerated. IMPRESSION: No evidence of acute intracranial abnormality
--- NOTE | 2019-11-19 12:10 | CT ---
EXAM: CT of the cervical spine without contrast HISTORY: Neck pain after fall COMPARISON: None TECHNIQUE: Multiple contiguous axial images were obtained in a CT of the cervical spine without contr ast. Sagittal and coronal reformats were performed. FINDINGS: The patient is status post fusion of C3-C6. The vertebral bodies demonstrate normal height and alignment without fracture or subluxation. Moderate stable degenerative changes are present. No prevertebral soft tissue swelling is seen. The posterior facets are well aligned. Normal alignment of the skull base with the cervical spine is seen. The lung apices are unremarkable. Atherosclerotic calcifications are seen in the carotid arteries. IMPRESSION: No evidence of acute osseous abnormality of the cervical spine.
[2019-11-19 12:11] LABS: Amphetamine Not Detected (NotDetected); Barbiturates Screen Not Detected (NotDetected); Benzodiazepine Screen Detected (NotDetected); Cocaine Metabolite Screen Not Detected (NotDetected); Medtox Control Line Valid? VALID (VALID); Medtox Reader # READER 1; Methadone Not Detected (NotDetected); Methamphetamine Not Detected (NotDetected); Opiate Screen Not Detected (NotDetected); Oxycodone Screen Not Detected (NotDetected); Phencyclidine (PCP) Not Detected (NotDetected); THC/Cannabinoid Screen Not Detected (NotDetected); Tricyclic Screen Detected (NotDetected)
[2019-11-19 12:13] LABS: Acetaminophen Less than 6.0 mcg/mL (10.0-30.0); Alcohol Less than 10 mg/dL (Less than 10); CK (CPK) 45 U/L (29-168); Salicylate Less than 8.0 mg/dL (15.0-30.0)
[2019-11-19 12:16] LABS: ALT (SGPT) 9 U/L (8-55); AST (SGOT) 15 U/L (5-34); Albumin 3.9 g/dL (3.4-4.8); Alkaline Phosphatase 93 U/L (40-110); Anion Gap 13 mmol/L (10-20); BUN (Urea Nitrogen) 9 mg/dL (9.8-20.1); Bilirubin, Total 0.3 mg/dL (0.2-1.2); Calc. Creatinine Clearance 0 mL/min (70-130); Carbon Dioxide 26 mmol/L (23-31); Chloride 88 mmol/L (98-107); Estimated GFR-MDRD 48; Globulin 2.2 g/dL (2.4-3.5); Glucose 111 mg/dL (80-115); Lipase 21 U/L (8-78); Potassium 4.2 mmol/L (3.5-5.1); Protein, Total 6.1 g/dL (6.0-8.3); Sodium 123 mmol/L (136-145)
[2019-11-19] MEDS ORDERED: Nitroglycerin 2% Ointment 1 INCH/1 GM Packet ONE ×2 (13:59→14:03)
[2019-11-19] MEDS ORDERED: Aspirin Chewable 81 MG TAB ONE (13:59)
[2019-11-19] MEDS ORDERED: Labetalol HCl 100 MG/20 ML VIAL ONE ×4 (13:59→19:41)
[2019-11-19] MEDS ORDERED: Promethazine HCl 25 MG/ML VIAL IM/IV SCH (15:15)
[2019-11-19] MEDS ORDERED: hydrALAZINE 20 MG/ML VIAL SLOW IVP SCH (15:15)
[2019-11-19] MEDS ORDERED: Ondansetron PF 4 MG/2 ML Vial ONE ×2 (15:18→15:19)
[2019-11-19] MEDS ORDERED: hydrALAZINE 20 MG/ML VIAL ONE (15:18)
[2019-11-19] MEDS ORDERED: Pantoprazole 40 MG VIAL IVP SCH (15:30)
[2019-11-19 15:53] LABS: Troponin I Less than 0.010 ng/mL (< 0.028)
[2019-11-19] MEDS ORDERED: Acetaminophen 325 MG TAB ONE (16:19)
[2019-11-19 18:08] VITALS: BMI 27.6
[2019-11-19] MEDS ORDERED: BUPRENORPHINE 20 MCG TD SCH (18:15)
[2019-11-19 18:30] LABS: Troponin I Less than 0.010 ng/mL (< 0.028)
[2019-11-19] MEDS ORDERED: Metoclopramide HCl 10 MG/2 ML VIAL IVP SCH (19:15)
[2019-11-19] MEDS: cloNIDine 0.1 MG TAB PO PRN (19:21)
[2019-11-19] MEDS: Promethazine HCl 25 MG/ML VIAL IM/IV PRN (19:38)
--- NOTE | 2019-11-19 19:48 | HP ---
CHIEF COMPLAINT: Changes in mental status. HISTORY OF PRESENT ILLNESS: Patient is a 69-year-old female with past medical history of CAD, irritable bowel syndrome, and chronic hemiplegic migraines, who comes into the hospital for change in mental status. Patient's , who is at the bedside, states that she recently had an anterior cervical diskectomy with fusion of C3-C6. She also recently was put on antibiotics for UTI. She is currently day 04/12 on Keflex who comes to the hospital with feeling very weak and lethargic for the past couple of days. Patient's states that usually in the mornings when she wakes up, she is very lethargic to the point that she is unable to ambulate and feels very, very weak. He feels that if he lets go off her, she would not be able to support herself. However, he stated today was the worst. He felt that when she woke up this morning, she was very drowsy and he had to help her to go to the bathroom. Yesterday evening, she was constipated, so she did receive an enema and had a decent-sized bowel movement this morning. He denies any fevers. He states that she has at times nauseated, however, has been eating without any difficulties. Her trazodone which she was receiving for possible esophageal spasms that is what the told me that was stopped for about a week. Her other medication change that has been done was gabapentin. She normally mg t.i.d., however, she is now on 600 mg in the morning and 300 mg at night, but this has just been done a recent change within a couple of days. She has also not been taking any pain medications. She currently complains of headache and very nauseated. Also states that during the evening times, her blood pressure is very, very high. However, in the mornings, her blood pressure is very low in the 70s or 80s. Thus, she is on a very low-dose blood pressure medications. He denies any coughing or any diarrhea. Just of note, while I was communicating with the patient's every time that he had misinformed me about a certain detail, she would interject and correct him with the appropriate detail. PAST MEDICAL HISTORY: As of the following. She has a history of: 1. CAD, status post CABG and redo CABG in 2016. 2. Irritable bowel syndrome. 3. Has a history of ischemic colitis. 4. Chronic hemiplegic migraines. 5. Chronic pain syndrome. 6. Dyslipidemia. 7. Diabetes, type 2. 8. Hypertension. 9. Anxiety and depression. PAST SURGICAL HISTORY: She has had a bypass in 2005 and redo in 2016, cardiac catheterization, hysterectomy, colonoscopy, appendectomy, bladder suspension surgery, and hernia repair. ALLERGIES: SHE IS ALLERGIC TO CIPROFLOXACIN AND REGLAN. MEDICATIONS: As of the following. She is currently on; 1. Keflex 500 mg. 2. Hydrocodone as needed. 3. Trazodone. She is not taking it anymore. 4. Dexilant 60 mg daily. 5. Dulcolax twice a day. 6. Biotin as needed. 7. Furosemide 40 mg daily. 8. Clonidine as needed. 9. Vascepa one tablet in the morning. 10. Lisinopril 2.5 daily. 11. Amitriptyline 25 mg daily. 12. Restasis in each eye daily. 13. Butrans patch 10 mcg every 7 days. 14. Celebrex 1 tablet daily. 15. Baclofen 1 tablet three times a day, which is 10 mg. 16. Folic acid one p.o. daily. 17. Aspirin 325 daily. 18. Carvedilol 3.125 twice a day. 19. Ranitidine 300 mg daily. 20. Simvastatin 40 mg p.o. daily. REVIEW OF SYSTEMS: All negative, except for the ones mentioned above in the HPI. SOCIAL HISTORY: She is , lives with her . She is a professor at [employer] . Denies any tobacco use, alcohol use, or drug use. She is a full code. FAMILY HISTORY: Positive for CAD. PHYSICAL EXAMINATION: VITAL SIGNS: Vital signs are as of the following; temperature of 97.6, blood pressure was 181/98, respirations of 16, and 98% on room air. GENERAL: She is an awake, alert, and oriented x2. She is able to complete full sentences. She has her eyes closed currently. HEENT: Normocephalic and atraumatic. No lymphadenopathy noted. Pupils equal and reactive to light. Her mucous membranes are moist. CV: S1 and S2 present. No murmurs, rubs, or gallops. ABDOMEN: Soft. Bowel sounds present x2. She has pain on palpation all around her abdominal area, epigastric, and everywhere. EXTREMITIES: No edema. Pedal pulses present x2. NEUROVASCULAR: There are no focal deficits noted. As I mentioned, pupils are equal and reactive to light. SKIN: No cuts, lesions, or bruises noted. LABORATORY RESULTS: As of the following; WBCs of 6.9, hemoglobin of 12.8, hematocrit of 36.5, and platelets of 312. Chemistry; sodium of 123, potassium of 4.2, BUN of 9, and creatinine of 1.12. Her LFTs were completely normal. Troponin x2 were negative. TSH was 1.9. She had a CT brain and a CT cervical spine. CT brain was normal. CT cervical spine was also normal. She also had a chest x-ray which was also normal. She had a urine which also appeared to be normal. ASSESSMENT AND PLAN: Patient is a very pleasant 69-year-old female who presents to the hospital with altered mental status. 1. Altered mental status. Unclear etiology. She is on several medications which could be possibly causing her to have generalized weakness versus this could be acute on chronic migraine that she has a history of. Patient was able to interject as I mentioned earlier in conversations when I was having with her very clearly about her history and corrected him if he misspoke. However, her currently her eyes are closed and she keeps stating that she has a significant headache and is very nauseous. I will go and get a Neurology consult on her. I will give her some medications for her migraine headaches to see if that helps and go from there. 2. Hypertensive urgency. Her blood pressure is significantly elevated. We will start her on some p.r.n. medications. I am not sure if her nausea or her headache is causing her to have an elevated blood pressure. We will monitor. 3. Nausea and abdominal pain. We will put her on a PPI and we will check a lipase. If her abdominal pain does not improve, I will consider a GI consult as her lipase was 21 because she is also on Celebrex daily which possibly could have caused may be gastritis or peptic ulcers. 4. Hyponatremia, acute on chronic. We will check a urine osmolality, serum osmolality, and urine sodium and we will continue to monitor. 5. Deep venous thrombosis prophylaxis. We will put patient on Lovenox. Job ID: [id number]
--- NOTE | 2019-11-19 19:53 | PDOC.EVN ---
Event Note - Event Note Event Note: Code green re: elevated BP 213 systolic with numbness/weakness on the right side. New per patient. Has a history of migraines associated with hemiplegia. States she can be triggered by smells such a strong cologne. States she tends to have numbness and weakness but feels somewhat worse than normal. Had CT head done in the ED which was negative. No abnormal neuro exam documented and it was done due to AMS. Dr. Ch has advised to repeat CT. She has just been given Labetalol and Lisinopril for her BP as well as her coreg which she missed today.
[2019-11-19] MEDS ORDERED: Lisinopril 5 MG TAB PO SCH (20:00)
--- NOTE | 2019-11-19 20:05 | CT ---
CT OF THE BRAIN WITHOUT CONTRAST: 11/19/19 INDICATION: Rule out CVA with new right sided numbness and weakness. COMPARISON: Prior exam dated 11/18/09 at 11:59 a.m. FINDINGS: No acute infarct, hemorrhage, or hydrocephalus is present. Septum pellucidum and third ventricle are midline. Mastoid air cells and paranasal sinuses are clear. IMPRESSION: 1. No acute intracranial abnormality. 2. Findings were called to Jacinta Ellis Nurse Practitioner at 8 p.m. on 11/19/19. Code CR POS: BH
[2019-11-19 20:17] LABS: #Lymphocytes 1.4 thou/uL (1.20-3.40); #Monocytes 0.4 thou/uL (0.11-0.59); #Neutrophils 3.6 thou/uL (1.40-6.50); %Basophils 0.5 % (0.0-1.0); %Eosinophils 0.7 % (0.0-10.0); %Lymphocytes 25.9 % (21.0-51.0); %Monocytes 6.8 % (0.0-10.0); %Neutrophils 66.1 % (42.0-75.0); Hemoglobin 13.8 g/dL (12.0-16.0); Mean Corpuscular HGB CONC 35.3 g/dL (32.0-36.0); Mean Corpuscular Hemoglobin 31.1 pg (27.0-31.0); Mean Corpuscular Volume 88.3 fL (78.0-98.0); Mean Platelet Volume 6.3 fL (7.4-10.4); Platelet Count 367 thou/uL (130-400); RBC Distribution Width 11.7 % (11.5-14.5); Red Blood Cell (RBC) Count 4.42 mill/uL (4.20-5.40); White Blood Cell (WBC) Count 5.4 thou/uL (4.8-10.8)
[2019-11-19 20:23] LABS: INR-International Normal Ratio 0.9; PTT 36.2 SEC (22.9-36.1); Prothrombin Time 12.5 SEC (12.0-14.7)
[2019-11-19 20:27] LABS: ALT (SGPT) 12 U/L (8-55); AST (SGOT) 16 U/L (5-34); Albumin 4.1 g/dL (3.4-4.8); Alkaline Phosphatase 101 U/L (40-110); Anion Gap 14 mmol/L (10-20); BUN (Urea Nitrogen) 8 mg/dL (9.8-20.1); Bilirubin, Total 0.5 mg/dL (0.2-1.2); CK (CPK) 52 U/L (29-168); Calc. Creatinine Clearance 63 mL/min (70-130); Calcium 9.5 mg/dL (7.8-10.44); Carbon Dioxide 28 mmol/L (23-31); Chloride 87 mmol/L (98-107); Estimated GFR-MDRD 58; Globulin 2.7 g/dL (2.4-3.5); Glucose 113 mg/dL (80-115); Potassium 4.8 mmol/L (3.5-5.1); Protein, Total 6.8 g/dL (6.0-8.3); Sodium 124 mmol/L (136-145)
[2019-11-19] MEDS: Atorvastatin Calcium 20 MG TAB PO SCH (20:39)
[2019-11-19] MEDS: Baclofen 10 MG TAB PO SCH (20:39)
[2019-11-19] MEDS: Ondansetron PF 4 MG/2 ML Vial IVP PRN (20:39)
[2019-11-19] MEDS: Carvedilol 3.125 MG TAB PO SCH (20:39)
[2019-11-19] MEDS: Gabapentin 300 MG CAP PO SCH (20:39)
[2019-11-19] MEDS: Amitriptyline HCl 25 MG TAB PO SCH (20:39)
[2019-11-19] MEDS: Pantoprazole 40 MG VIAL IVP SCH (20:40)
[2019-11-19] MEDS ORDERED: Baclofen 10 MG TAB PO SCH (21:00)
--- NOTE | 2019-11-19 22:10 | PDOC.EVN ---
Event Note - Event Note Event Note: CODE Green called Patients BP > 200. Patient complained of headache and tingling in both arms and legs. On exam: Neuro: CN II - XII intact. CVS: RRR, no murmurs, rubs, gallops Lungs: CTAB Right UE and RLE: 2/5 strength, intact sensation LUE and LLE: 3/5 strength BabinskI: negative Stroke protocol called. CT head repeated and negative. Pt given labetalol 10 mg IV and lisinopril 5 mg Upon re-eval patient's blood pressure improved to 183 systolic. She complains of some abdominal pain and difficulty urinating. Pt complains of tingling in left arm going to left side of head. Davis was placed by nursing staff. REports headache as well, takes baclofen at home for muscle spasms. Never tried migraine medication Neuro: patient is able to move all four extremities, 5/5 strength in upper and lower extremities. Babinski negative CV: RRR, no murmur, rub, gallop Lungs: CTAB Abdomen: + BS, soft, mild RLQ tenderness Ext: no edema Assessment: Seems to have improved with control of high BP since neuro exam back to normal Pt reports history of high grade stenosis of vertebral artery and was supposed to see Dr Valera today to get carotid ultrasound. CTA 2/3 shows high grade stenosis of left vertebral artery. Will order carotid ultrasound. CXR earlier today negative. Troponin negative times three Headache: try one dose of fioricet. Avoid sumatriptan given arterial stenosis Hyponatremia: sodium 124. Consider nephro consult in am? May need fluid restriction, however urine osmolarity not that bad
[2019-11-19] MEDS: Fioricet 325/50/40 mg Tablet PO PRN (22:32)
[2019-11-19] MEDS: hydrALAZINE 20 MG/ML VIAL SLOW IVP PRN (22:32)
[2019-11-19 22:36] LABS: Bacteria/HPF None Seen HPF (None Seen); Bilirubin Negative (Negative); Blood, Urine Negative (Negative); Clarity Clear (Clear); Glucose, Urine (Dipstick) Normal (Negative); Leukocyte Negative Leu/uL (Negative); Nitrite Negative (Negative); Protein, Urine (Dipstick) Negative (Neg-Trace); RBC/HPF 0-3 HPF (0-3); Squamous Epithelial None Seen HPF (0-3); Urobilinogen Normal mg/dL (Less than 2); WBC/HPF 0-3 HPF (0-3)
[2019-11-19 22:38] LABS: Urine Culture Reflex No No
[2019-11-20] MEDS ORDERED: Promethazine HCl 12.5 MG in Sodium Chloride 0.9% 50 ML IVPB PRN (01:14)
[2019-11-20] MEDS: Ondansetron PF 4 MG/2 ML Vial IVP PRN ×3 (03:42→20:32)
[2019-11-20 04:47] LABS: #Lymphocytes 1.9 thou/uL (1.20-3.40); #Monocytes 0.7 thou/uL (0.11-0.59); #Neutrophils 5.2 thou/uL (1.40-6.50); %Basophils 0.5 % (0.0-1.0); %Eosinophils 0.6 % (0.0-10.0); %Lymphocytes 24.2 % (21.0-51.0); %Monocytes 9.2 % (0.0-10.0); %Neutrophils 65.5 % (42.0-75.0); Hemoglobin 11.7 g/dL (12.0-16.0); Mean Corpuscular Hemoglobin 30.9 pg (27.0-31.0); Mean Corpuscular Volume 88.4 fL (78.0-98.0); Platelet Count 337 thou/uL (130-400); RBC Distribution Width 11.7 % (11.5-14.5); Red Blood Cell (RBC) Count 3.79 mill/uL (4.20-5.40); White Blood Cell (WBC) Count 7.9 thou/uL (4.8-10.8)
[2019-11-20] MEDS: Acetaminophen 325 MG TAB PO PRN ×3 (04:54→20:33)
[2019-11-20 05:08] LABS: Anion Gap 12 mmol/L (10-20); BUN (Urea Nitrogen) 7 mg/dL (9.8-20.1); Calc. Creatinine Clearance 73 mL/min (70-130); Calcium 8.9 mg/dL (7.8-10.44); Carbon Dioxide 27 mmol/L (23-31); Chloride 88 mmol/L (98-107); Estimated GFR-MDRD 70; Glucose 95 mg/dL (80-115); Potassium 4.5 mmol/L (3.5-5.1); Sodium 122 mmol/L (136-145)
[2019-11-20] MEDS ORDERED: ALPRAZolam 0.25 MG TAB PO PRN (05:18)
[2019-11-20] MEDS ORDERED: Non-Formulary Item 1 EACH (Dexlansoprazole [Dexilant] 60 MG) PO SCH (09:00)
[2019-11-20] MEDS ORDERED: Aspirin 325 mg Enteric Coated Tablet PO SCH (09:00)
[2019-11-20] MEDS: Enoxaparin Sodium 40 MG/0.4 ML SYRINGE SC SCH (09:09)
[2019-11-20] MEDS: Baclofen 10 MG TAB PO SCH ×3 (09:09→20:33)
[2019-11-20] MEDS: Carvedilol 3.125 MG TAB PO SCH ×2 (09:09→20:32)
[2019-11-20] MEDS: Pantoprazole 40 MG VIAL IVP SCH ×2 (09:10→20:33)
[2019-11-20] MEDS: Gabapentin 300 MG CAP PO SCH ×2 (09:10→20:33)
[2019-11-20] MEDS: Icosapent Ethyl 1 GM CAPSULE PO SCH (09:10)
--- NOTE | 2019-11-20 10:08 | ULT ---
BILATERAL CAROTID DUPLEX ULTRASOUND: HISTORY: Vertebral artery stenosis. TECHNIQUE: Joyce scale ultrasound with color flow and spectral Doppler imaging of the extracranial carotid artery systems is performed bilaterally. FINDINGS: There is plaque formation on both sides. The peak systolic velocity in the right ICA measures 144 cm/s with an end-diastolic velocity of 33 cm /s and a systolic ratio of 1.02. The peak systolic velocity in the left ICA measures 142 cm/s with an end-diastolic velocity of 42 cm/ s and a systolic ratio of 1.11. Flow in both vertebral arteries remains antegrade. IMPRESSION: Moderate (50-69%) stenosis involving both internal carotid arteries. POS: [facility]
--- NOTE | 2019-11-20 16:32 | CON ---
DATE OF CONSULTATION: 11/20/2019 CONSULTING PHYSICIAN: Hospitalist Service. IMPRESSION: Transient lethargy and headache, likely secondary to combination of medications and a migraine. PLAN: 1. Discontinue Butrans patch. 2. Address hyponatremia. 3. Monitor clinical course. HISTORY OF PRESENT ILLNESS: Ms. Jack is a 69-year-old woman with a past history of chronic migraines, coronary artery disease, and IBS, who recently underwent a cervical fusion. She was about 8 days postoperative. Her tried to get her up and she was quite lethargic. She seemed generally weak and had trouble standing up straight. She was talking in a somewhat nonsensical manner. They called EMS and she was brought into the hospital. Her tox screen was positive for tricyclics and benzodiazepine. She was wearing a Butrans patch. The Butrans patch has since been discontinued. Her sodium level was 124. She has been afebrile since admission. She had reported a headache yesterday evening with tingling in all 4 extremities. She had an emergency CT done, which was negative for any signs of a hemorrhage. She has what is a dull diffuse headache today. She has not had any further nausea or vomiting. PAST MEDICAL HISTORY: As listed above. ALLERGIES: CIPRO, REGLAN. MEDICATIONS: List reviewed. SOCIAL HISTORY: No tobacco or alcohol. FAMILY HISTORY: Noncontributory. REVIEW OF SYSTEMS: Ten-system review of systems is otherwise negative. PHYSICAL EXAMINATION: GENERAL: She is a well-nourished elderly woman, sitting up in bed, in no acute distress. VITAL SIGNS: Blood pressure 109/57, pulse 90, respirations 16, and temperature 98.8. HEENT: Pupils are equal. Conjunctivae are clear. Oropharynx clear. NECK: Supple. EXTREMITIES: No cyanosis. NEUROLOGIC: She was alert and cooperative. Her speech is fluent and clear. She answers questions appropriately. There is no facial asymmetry. She had equal strength in her extremities. No abnormal movements were seen. Gait was not tested. DIAGNOSTIC DATA: Carotid ultrasound showed a 50% to 69% stenosis bilaterally. Her urinalysis was clear. SUMMARY: This is a 69-year-old woman, who presented with lethargy and complaints of a headache with nausea and vomiting. She might have had a confusional migraine versus being overmedicated superimposed with a headache. She seems to be doing much better at this point. Her workup has been unremarkable other than her drug screen. I agree with discontinuing the Butrans patch. If she remains clinically stable, she can be transferred to Rehab tomorrow. Job ID: [id number]
--- NOTE | 2019-11-20 18:31 | PDOC.HOSPP ---
- Subjective Encounter Date: 11/20/19 Encounter Time: 10:15 Subjective: pt up in bed still has a headache. - Objective Vital Signs & Weight: Vital Signs (12 hours) Temp Pulse Pulse Pulse Resp BP BP 11/20/19 15:38 98.0 F 84 16 11/20/19 11:47 93 109/57 L 11/20/19 11:35 98.8 F 90 16 11/20/19 10:25 96 88 125/58 L 139/75 11/20/19 07:50 98.3 F 91 18 BP Pulse Ox Pulse Ox Pulse Ox 11/20/19 15:38 128/65 99 11/20/19 11:47 97 11/20/19 11:35 109/57 L 97 11/20/19 10:25 97 96 11/20/19 07:50 122/69 99 Weight Weight 156 lb 3.2 oz I&O: 11/19/19 11/20/19 11/21/19 06:59 06:59 06:59 Intake Total 300 Output Total 900 1475 Balance -900 -1172 Result Diagrams: 11/20/19 04:35 11/20/19 04:35 Additional Labs: Accuchecks 11/19/19 20:08 POC Glucose 113 H Hospitalist ROS - Review of Systems Respiratory: denies: cough, dry, shortness of breath, hemoptysis, SOB with excertion, pleuritic pain, sputum, wheezing, other Cardiovascular: denies: chest pain, palpitations, orthopnea, paroxysmal noc. dyspnea, edema, light headedness, other Gastrointestinal: denies: nausea, vomiting, abdominal pain, diarrhea, constipation, melena, hematochezia, other - Medication Medications: Active Medications Generic Name Dose Route Start Last Admin Trade Name Freq PRN Reason Stop Dose Admin Acetaminophen 650 mg 11/19/19 15:11 11/20/19 11:42 Tylenol PO 650 mg Q4H PRN Administration Headache/Fever/Mild Pain (1-3) Acetaminophen/Butalbital/Caffeine 1 tab 11/19/19 22:17 11/19/19 22:32 Fioricet PO 11/24/19 22:18 1 tab Q4H PRN Administration Headache Amitriptyline HCl 25 mg 11/19/19 21:00 11/19/19 20:39 Elavil PO 25 mg HS YAKOV Administration Aspirin 325 mg 11/20/19 09:00 11/20/19 09:09 Ecotrin PO 325 mg DAILY YAKOV Administration Atorvastatin Calcium 20 mg 11/19/19 21:00 11/19/19 20:39 Lipitor PO 20 mg HS YAKOV Administration Baclofen 10 mg 11/19/19 21:00 11/20/19 15:34 Lioresal PO 10 mg TID YAKOV Administration Carvedilol 3.125 mg 11/19/19 21:00 11/20/19 09:09 Coreg PO 3.125 mg BID YAKOV Administration Clonidine 0.1 mg 11/19/19 19:05 11/19/19 19:21 Catapres PO 0.1 mg BIDPRN PRN Administration SBP > 180 Enoxaparin Sodium 40 mg 11/20/19 09:00 11/20/19 09:09 Lovenox SC 40 mg 0900 YAKOV Administration Gabapentin 600 mg 11/20/19 09:00 11/20/19 09:10 Neurontin PO 600 mg DAILY YAKOV Administration Gabapentin 300 mg 11/19/19 21:00 11/19/19 20:39 Neurontin PO 300 mg QPM YAKOV Administration Hydralazine HCl 5 mg 11/19/19 17:30 11/19/19 22:32 Apresoline SLOW IVP 5 mg Q6H PRN Administration SBP Greater Than 170 Promethazine HCl 12.5 mg/ 50.5 mls @ 151.5 mls/hr 11/20/19 01:14 11/20/19 01: 36 Sodium Chloride IVPB 50.5 mls Q6H PRN Administration Nausea Miscellaneous Medication 1 gm 11/20/19 09:00 11/20/19 09:10 Vascepa PO 1 gm DAILY YAKOV Administration Ondansetron HCl 4 mg 11/19/19 17:34 11/20/19 11:34 Zofran IVP 4 mg Q6H PRN Administration Nausea/Vomiting Pantoprazole Sodium 40 mg 11/19/19 21:00 11/20/19 09:10 Protonix IVP 40 mg Q12HR YAKOV Administration Promethazine HCl 12.5 mg 11/19/19 19:06 11/19/19 19:38 Phenergan IM/IV 12.5 mg Q6H PRN Administration Nausea/Vomiting - Exam Neck: negative: supple, symmetric, no JVD, no thyromegaly, no lymphadenopathy, no carotid bruit, JVD Heart: negative: RRR, no murmur, no gallops, no rubs, normal peripheral pulses, irregular, diminshed peripheral pulses, murmur present, II/IV, III/IV Respiratory: negative: CTAB, no wheezes, no rales, no ronchi, normal chest expansion, no tachypnea, normal percussion, rales, rhonchi, tachypneic, wheezes Gastrointestinal: negative: soft, non-tender, non-distended, normal bowel sounds , no palpable masses, no hepatomegaly, no splenomegaly, no bruit, no guarding, no rigidity, tender to palpation, distended, diminished bowl sounds, voluntary guarding Hosp A/P (1) Acute metabolic encephalopathy Code(s): G93.41 - METABOLIC ENCEPHALOPATHY Status: Acute (2) Hypertensive urgency Code(s): I16.0 - HYPERTENSIVE URGENCY Status: Acute (3) DM type 2 (diabetes mellitus, type 2) Status: Chronic (4) HTN (hypertension) Code(s): I10 - ESSENTIAL (PRIMARY) HYPERTENSION Status: Chronic (5) Migraine Code(s): G43.909 - MIGRAINE, UNSP, NOT INTRACTABLE, WITHOUT STATUS MIGRAINOSUS Status: Chronic - Plan will continue her home meds, she is on a buprenorphine patch. buprenorphine could be causing her to have some of her symptoms. will discontinue it and monitor. neurology has been consulted.
[2019-11-20] MEDS: Atorvastatin Calcium 20 MG TAB PO SCH (20:33)
[2019-11-20] MEDS: Amitriptyline HCl 25 MG TAB PO SCH (20:33)
[2019-11-21] MEDS: Baclofen 10 MG TAB PO SCH ×3 (08:42→20:46)
[2019-11-21] MEDS: Carvedilol 3.125 MG TAB PO SCH ×2 (08:42→20:46)
[2019-11-21] MEDS: Pantoprazole 40 MG VIAL IVP SCH ×2 (08:42→20:46)
[2019-11-21] MEDS: Enoxaparin Sodium 40 MG/0.4 ML SYRINGE SC SCH (08:42)
[2019-11-21] MEDS: Icosapent Ethyl 1 GM CAPSULE PO SCH (08:42)
[2019-11-21] MEDS: Gabapentin 300 MG CAP PO SCH ×2 (08:42→20:46)
[2019-11-21] MEDS: Aspirin 325 MG TAB PO SCH (08:42)
[2019-11-21] MEDS: Ondansetron PF 4 MG/2 ML Vial IVP PRN ×2 (09:00→15:33)
[2019-11-21] MEDS: Acetaminophen 325 MG TAB PO PRN (09:27)
[2019-11-21] MEDS ORDERED: BUTRANS 20 MCG/HR TD SCH (14:00)
--- NOTE | 2019-11-21 14:13 | PDOC.HOSPP ---
- Subjective Encounter Date: 11/21/19 Encounter Time: 13:50 Subjective: f/u for AMS, general weakness and constipation. Feels better overall and had large BM. - Objective Vital Signs & Weight: Vital Signs (12 hours) Temp Pulse Resp BP Pulse Ox 11/21/19 11:12 97.8 F 99 16 146/77 H 96 11/21/19 07:43 97.5 F L 76 14 101/56 L 97 11/21/19 04:00 97.9 F 85 18 110/56 L 98 Weight Weight 156 lb 3.2 oz I&O: 11/20/19 11/21/19 11/22/19 06:59 06:59 06:59 Intake Total 780 Output Total 900 2300 Balance -900 -1520 Result Diagrams: 11/20/19 04:35 11/20/19 04:35 Additional Labs: Microbiology 11/19/19 11:40 Urine Straight Catheter Urine Culture - Final NO GROWTH AT 48 HOURS Laboratory Tests 03/04/16 03/21/16 03/24/16 01:17 11:30 04:36 Sodium Carbon Dioxide 19 L 19 L 17 L Ammonia TSH 3rd Generation Cortisol 03/25/16 11/04/19 11/05/19 04:34 01:57 12:15 Sodium 127 L 125 L Carbon Dioxide 15 L Ammonia TSH 3rd Generation Cortisol 11/19/19 11/19/19 11/19/19 11:49 11:50 11:50 Sodium 123 L Carbon Dioxide Ammonia 25 TSH 3rd Generation 1.9000 Cortisol 11/19/19 11/20/19 19:40 07:52 Sodium 124 L Carbon Dioxide Ammonia TSH 3rd Generation Cortisol 4.40 Radiology Reviewed by me: Yes (CT brain - neg; Carotids - mod stenosis bilat) EKG Reviewed by me: Yes (Tele - SR) Hospitalist ROS - Medication Medications: Active Medications Generic Name Dose Route Start Last Admin Trade Name Freq PRN Reason Stop Dose Admin Acetaminophen 650 mg 11/19/19 15:11 11/21/19 09:27 Tylenol PO 650 mg Q4H PRN Administration Headache/Fever/Mild Pain (1-3) Acetaminophen/Butalbital/Caffeine 1 tab 11/19/19 22:17 11/19/19 22:32 Fioricet PO 11/24/19 22:18 1 tab Q4H PRN Administration Headache Amitriptyline HCl 25 mg 11/19/19 21:00 11/20/19 20:33 Elavil PO 25 mg HS YAKOV Administration Aspirin 325 mg 11/21/19 09:00 11/21/19 08:42 Aspirin PO 325 mg DAILY YAKOV Administration Atorvastatin Calcium 20 mg 11/19/19 21:00 11/20/19 20:33 Lipitor PO 20 mg HS YAKOV Administration Baclofen 10 mg 11/19/19 21:00 11/21/19 08:42 Lioresal PO 10 mg TID YAKOV Administration Carvedilol 3.125 mg 11/19/19 21:00 11/21/19 08:42 Coreg PO 3.125 mg BID YAKOV Administration Clonidine 0.1 mg 11/19/19 19:05 11/19/19 19:21 Catapres PO 0.1 mg BIDPRN PRN Administration SBP > 180 Enoxaparin Sodium 40 mg 11/20/19 09:00 11/21/19 08:42 Lovenox SC 40 mg 0900 YAKOV Administration Gabapentin 600 mg 11/20/19 09:00 11/21/19 08:42 Neurontin PO 600 mg DAILY YAKOV Administration Gabapentin 300 mg 11/19/19 21:00 11/20/19 20:33 Neurontin PO 300 mg QPM YAKOV Administration Hydralazine HCl 5 mg 11/19/19 17:30 11/19/19 22:32 Apresoline SLOW IVP 5 mg Q6H PRN Administration SBP Greater Than 170 Promethazine HCl 12.5 mg/ 50.5 mls @ 151.5 mls/hr 11/20/19 01:14 11/20/19 01: 36 Sodium Chloride IVPB 50.5 mls Q6H PRN Administration Nausea Miscellaneous Medication 1 gm 11/20/19 09:00 11/21/19 08:42 Vascepa PO 1 gm DAILY YAKOV Administration Ondansetron HCl 4 mg 11/19/19 17:34 11/21/19 09:00 Zofran IVP 4 mg Q6H PRN Administration Nausea/Vomiting Pantoprazole Sodium 40 mg 11/19/19 21:00 11/21/19 08:42 Protonix IVP 40 mg Q12HR YAKOV Administration Butrans ( 0 each 11/21/19 14:00 11/21/19 13:32 Buprenorphine) 20 TD 1 each Mcg/Hr Patch Q6D YAKOV Administration Promethazine HCl 12.5 mg 11/19/19 19:06 11/19/19 19:38 Phenergan IM/IV 12.5 mg Q6H PRN Administration Nausea/Vomiting - Exam General Appearance: NAD, awake alert Eye: PERRL, anicteric sclera ENT: normocephalic atraumatic, no oropharyngeal lesions Neck: supple, symmetric, no JVD, no thyromegaly Heart: RRR, no murmur, no gallops, no rubs, normal peripheral pulses Heart - other findings: S1, S2 Respiratory: CTAB, no wheezes, no rales, no ronchi, normal chest expansion, no tachypnea Gastrointestinal: soft, non-tender, non-distended, normal bowel sounds, no palpable masses Extremities: no cyanosis, no clubbing, no edema Skin: normal turgor Neurological: cranial nerve grossly intact, no new deficit Musculoskeletal: normal tone, generalized weakness Psychiatric: A&O x 3 Hosp A/P (1) Acute metabolic encephalopathy Code(s): G93.41 - METABOLIC ENCEPHALOPATHY Status: Acute Plan: Suspect multifactorial process including sedating meds and hyponatremia, see mgmt below (2) Hyponatremia Code(s): E87.1 - HYPO-OSMOLALITY AND HYPONATREMIA Status: Acute Plan: Likely SIADH with contribution from Amitriptyline, start low-volume NS, hold Amitriptyline, serial Na+ monitoring (3) Abdominal pain Code(s): R10.9 - UNSPECIFIED ABDOMINAL PAIN Status: Acute Qualifiers: Abdominal location: generalized Qualified Code(s): R10.84 - Generalized abdominal pain Plan: secondary to constipation now resolved (4) Depression Code(s): F32.9 - MAJOR DEPRESSIVE DISORDER, SINGLE EPISODE, UNSPECIFIED Status : Chronic (5) Anxiety disorder Code(s): F41.9 - ANXIETY DISORDER, UNSPECIFIED Status: Chronic (6) HTN (hypertension) Code(s): I10 - ESSENTIAL (PRIMARY) HYPERTENSION Status: Chronic Qualifiers: Hypertension type: essential hypertension Qualified Code(s): I10 - Essential (primary) hypertension Plan: Resume home BP regimen, serial BP monitoring - Plan plan discussed w/ family, PT/OT, hospital social worker, out of bed/ambulate, DVT proph w/SCDs Stable currently Start IV NS @ 75ml/h Hold Amitriptyline OOB with PT/OT Rehab screening Start Reg Diet AM lab: BMP
[2019-11-21] MEDS: Sodium Chloride 0.9% 1,000 ML IV SCH (14:14)
[2019-11-21] MEDS: Atorvastatin Calcium 20 MG TAB PO SCH (20:46)
[2019-11-21] MEDS: cloNIDine 0.1 MG TAB PO PRN (23:58)
[2019-11-22] MEDS: Sodium Chloride 0.9% 1,000 ML IV SCH
[2019-11-22] MEDS ORDERED: Nitroglycerin 0.4 MG TAB (25 Tab Bottle) ONE (00:03)
[2019-11-22 05:48] LABS: Anion Gap 12 mmol/L (10-20); BUN (Urea Nitrogen) 9 mg/dL (9.8-20.1); Calc. Creatinine Clearance 97 mL/min (70-130); Calcium 8.9 mg/dL (7.8-10.44); Carbon Dioxide 26 mmol/L (23-31); Chloride 98 mmol/L (98-107); Estimated GFR-MDRD Greater than 90; Glucose 101 mg/dL (80-115); Potassium 4.1 mmol/L (3.5-5.1); Sodium 132 mmol/L (136-145)
[2019-11-22] MEDS: Gabapentin 300 MG CAP PO SCH ×2 (08:15→20:59)
[2019-11-22] MEDS: Carvedilol 3.125 MG TAB PO SCH ×2 (08:15→20:57)
[2019-11-22] MEDS: Enoxaparin Sodium 40 MG/0.4 ML SYRINGE SC SCH (08:16)
[2019-11-22] MEDS: Aspirin 325 MG TAB PO SCH (08:16)
[2019-11-22] MEDS: Baclofen 10 MG TAB PO SCH ×3 (08:16→20:57)
[2019-11-22] MEDS: Pantoprazole 40 MG VIAL IVP SCH ×2 (08:16→20:59)
[2019-11-22] MEDS: Icosapent Ethyl 1 GM CAPSULE PO SCH (09:50)
[2019-11-22] MEDS: Ondansetron PF 4 MG/2 ML Vial IVP PRN (09:53)
[2019-11-22] MEDS: cloNIDine 0.1 MG TAB PO PRN (15:26)
--- NOTE | 2019-11-22 16:10 | PDOC.HOSPP ---
- Subjective Encounter Date: 11/22/19 Encounter Time: 16:08 Subjective: Ms. Jack was seen today in follow-up of metabolic encephalopathy. She does not have any complaints. She is much more awake. She appears to be close to her baseline. - Objective Vital Signs & Weight: Vital Signs (12 hours) Temp Pulse Resp BP BP Pulse Ox 11/22/19 15:26 180/80 H 11/22/19 11:19 97.9 F 91 16 170/81 H 96 11/22/19 08:07 96 11/22/19 08:05 97.7 F 96 14 171/80 H 96 Weight Weight 156 lb 3.2 oz I&O: 11/21/19 11/22/19 11/23/19 06:59 06:59 06:59 Intake Total 780 1230 Output Total 2300 1130 Balance -1520 100 Result Diagrams: 11/20/19 04:35 11/22/19 05:18 Hospitalist ROS - Medication Medications: Active Medications Generic Name Dose Route Start Last Admin Trade Name Freq PRN Reason Stop Dose Admin Acetaminophen 650 mg 11/19/19 15:11 11/21/19 09:27 Tylenol PO 650 mg Q4H PRN Administration Headache/Fever/Mild Pain (1-3) Acetaminophen/Butalbital/Caffeine 1 tab 11/19/19 22:17 11/19/19 22:32 Fioricet PO 11/24/19 22:18 1 tab Q4H PRN Administration Headache Aspirin 325 mg 11/21/19 09:00 11/22/19 08:16 Aspirin PO 325 mg DAILY YAKOV Administration Atorvastatin Calcium 20 mg 11/19/19 21:00 11/21/19 20:46 Lipitor PO 20 mg HS YAKOV Administration Baclofen 10 mg 11/19/19 21:00 11/22/19 14:59 Lioresal PO 10 mg TID YAKOV Administration Carvedilol 3.125 mg 11/19/19 21:00 11/22/19 08:15 Coreg PO 3.125 mg BID YAKOV Administration Enoxaparin Sodium 40 mg 11/20/19 09:00 11/22/19 08:16 Lovenox SC 40 mg 0900 YAKOV Administration Gabapentin 600 mg 11/20/19 09:00 11/22/19 08:15 Neurontin PO 600 mg DAILY YAKOV Administration Gabapentin 300 mg 11/19/19 21:00 11/21/19 20:46 Neurontin PO 300 mg QPM YAKOV Administration Hydralazine HCl 5 mg 11/19/19 17:30 11/19/19 22:32 Apresoline SLOW IVP 5 mg Q6H PRN Administration SBP Greater Than 170 Promethazine HCl 12.5 mg/ 50.5 mls @ 151.5 mls/hr 11/20/19 01:14 11/20/19 01: 36 Sodium Chloride IVPB 50.5 mls Q6H PRN Administration Nausea Miscellaneous Medication 1 gm 11/20/19 09:00 11/22/19 09:50 Vascepa PO 1 gm DAILY YAKOV Administration Ondansetron HCl 4 mg 11/19/19 17:34 11/22/19 09:53 Zofran IVP 4 mg Q6H PRN Administration Nausea/Vomiting Pantoprazole Sodium 40 mg 11/19/19 21:00 11/22/19 08:16 Protonix IVP 40 mg Q12HR YAKOV Administration Butrans ( 0 each 11/21/19 14:00 11/21/19 13:32 Buprenorphine) 20 TD 1 each Mcg/Hr Patch Q6D YAKOV Administration Promethazine HCl 12.5 mg 11/19/19 19:06 11/19/19 19:38 Phenergan IM/IV 12.5 mg Q6H PRN Administration Nausea/Vomiting - Exam Eye: PERRL Heart: RRR, no murmur, no gallops, no rubs, normal peripheral pulses Respiratory: CTAB (+ faint rales at the bases), no wheezes, no ronchi, normal chest expansion, no tachypnea Gastrointestinal: soft, non-tender, non-distended, normal bowel sounds, no palpable masses, no hepatomegaly Extremities: no cyanosis, 1+ LE edema Hosp A/P (1) Acute metabolic encephalopathy Code(s): G93.41 - METABOLIC ENCEPHALOPATHY Status: Acute (2) CAD (coronary artery disease) Code(s): I25.10 - ATHSCL HEART DISEASE OF [place] CORONARY ARTERY W/O ANG PCTRS Status: Chronic Qualifiers: Coronary Disease-Associated Artery/Lesion type: [place] artery [place] vs. transplanted heart: [place] heart Associated angina: without angina Qualified Code(s): I25.10 - Atherosclerotic heart disease of [place] coronary artery without angina pectoris (3) HTN (hypertension) Code(s): I10 - ESSENTIAL (PRIMARY) HYPERTENSION Status: Chronic Qualifiers: Hypertension type: essential hypertension Qualified Code(s): I10 - Essential (primary) hypertension (4) Migraine Code(s): G43.909 - MIGRAINE, UNSP, NOT INTRACTABLE, WITHOUT STATUS MIGRAINOSUS Status: Chronic (5) Hyponatremia Code(s): E87.1 - HYPO-OSMOLALITY AND HYPONATREMIA Status: Acute - Plan * Metabolic encephalopathy- likely from a combination of volume depletion and Amytriptyline- this is much improved * Will discontinue IV fluids,and continue off Elavil * Discontinue Davis * HTN- will re-start Lisinopril tomorrow- this was held due to volume depletion - will adjust her parameters for her PRN Clonidine to what was recommended by her Automatic Grinder Operator- Dr. Conley * Deconditioning- continue PT/OT and await Rehab screen
[2019-11-22] MEDS: Atorvastatin Calcium 20 MG TAB PO SCH (21:04)
[2019-11-22] MEDS: hydrALAZINE 20 MG/ML VIAL SLOW IVP PRN (23:40)
[2019-11-23] MEDS: Acetaminophen 325 MG TAB PO PRN ×4 (02:02→21:00)
--- NOTE | 2019-11-23 02:50 | PDOC.EVN ---
Event Note - Event Note Event Note: Notified by RN, patient complained of discomfort with Santos and requesting to have it removed per Dr. Lynch's plan. Per RN, she had some sort of kink, with decreased output via santos. Bladder scan showed 250mLs. Following manipulation of catheter it drained 400 mLs. bladder scan to verify no residual after santos drained properly. Santos discontinued as per Dr. Yeh note. Advised to scan in 4 hours to ensure patient no retaining.
[2019-11-23] MEDS: Ondansetron PF 4 MG/2 ML Vial IVP PRN ×2 (07:57→18:03)
[2019-11-23] MEDS: Lisinopril 2.5 MG TAB PO SCH ×2 (08:40→20:59)
[2019-11-23] MEDS: Carvedilol 3.125 MG TAB PO SCH ×2 (08:40→21:00)
[2019-11-23 10:33] LABS: Anion Gap 11 mmol/L (10-20); BUN (Urea Nitrogen) 7 mg/dL (9.8-20.1); Calc. Creatinine Clearance 99 mL/min (70-130); Calcium 8.8 mg/dL (7.8-10.44); Carbon Dioxide 26 mmol/L (23-31); Chloride 97 mmol/L (98-107); Estimated GFR-MDRD Greater than 90; Glucose 103 mg/dL (80-115); Potassium 3.8 mmol/L (3.5-5.1); Sodium 130 mmol/L (136-145)
[2019-11-23] MEDS: Pantoprazole 40 MG VIAL IVP SCH ×3 (10:45→21:01)
[2019-11-23] MEDS: Baclofen 10 MG TAB PO SCH ×4 (10:45→21:00)
[2019-11-23] MEDS: Enoxaparin Sodium 40 MG/0.4 ML SYRINGE SC SCH ×2 (10:45→12:37)
[2019-11-23] MEDS: Aspirin 325 MG TAB PO SCH ×2 (10:45→12:25)
[2019-11-23] MEDS: Icosapent Ethyl 1 GM CAPSULE PO SCH ×2 (10:45→12:28)
[2019-11-23] MEDS: Gabapentin 300 MG CAP PO SCH ×3 (11:01→21:01)
[2019-11-23] MEDS: cloNIDine 0.1 MG TAB PO PRN ×2 (12:23→23:06)
[2019-11-23] MEDS: Promethazine HCl 25 MG/ML VIAL IM/IV PRN (12:34)
[2019-11-23 13:11] LABS: Bacteria/HPF 4+ HPF (None Seen); Bilirubin Negative (Negative); Blood, Urine 1+ (Negative); Clarity Turbid (Clear); Glucose, Urine (Dipstick) Normal (Negative); Leukocyte 500 Leu/uL (Negative); Nitrite Negative (Negative); Protein, Urine (Dipstick) 50 mg/dL (Neg-Trace); RBC/HPF 0-3 HPF (0-3); Urobilinogen Normal mg/dL (Less than 2); WBC/HPF Greater than 50 HPF (0-3)
[2019-11-23] MEDS ORDERED: ALPRAZolam 0.25 MG TAB PO PRN (14:32)
--- NOTE | 2019-11-23 14:34 | PDOC.HOSPP ---
- Subjective Encounter Date: 11/23/19 Encounter Time: 14:33 Subjective: Ms. Jack was seen today in follow-up of altered mental status. She says she is beginning to have a headache, and feels tightness around her neck. She says this is how she feels when she gets a migraine. She also notes nausea. - Objective Vital Signs & Weight: Vital Signs (12 hours) Temp Pulse Resp BP BP Pulse Ox 11/23/19 14:05 97.5 F L 92 20 151/81 H 96 11/23/19 12:23 159/88 H 11/23/19 11:46 97.7 F 88 18 159/88 H 97 11/23/19 08:40 92 162/78 H 96 11/23/19 07:43 98.6 F 92 18 156/86 H 94 L 11/23/19 04:30 98.3 F 85 16 125/75 93 L Weight Weight 156 lb 3.2 oz I&O: 11/22/19 11/23/19 11/24/19 06:59 06:59 06:59 Intake Total 1230 1230 Output Total 1130 2850 Balance 100 -1620 Result Diagrams: 11/20/19 04:35 11/23/19 10:03 Additional Labs: Accuchecks 11/23/19 08:54 POC Glucose 99 Hospitalist ROS - Medication Medications: Active Medications Generic Name Dose Route Start Last Admin Trade Name Freq PRN Reason Stop Dose Admin Acetaminophen 650 mg 11/19/19 15:11 11/23/19 09:02 Tylenol PO 650 mg Q4H PRN Administration Headache/Fever/Mild Pain (1-3) Acetaminophen/Butalbital/Caffeine 1 tab 11/19/19 22:17 11/19/19 22:32 Fioricet PO 11/24/19 22:18 1 tab Q4H PRN Administration Headache Aspirin 325 mg 11/21/19 09:00 11/23/19 12:25 Aspirin PO 325 mg DAILY YAKOV Administration Atorvastatin Calcium 20 mg 11/19/19 21:00 11/22/19 21:04 Lipitor PO 20 mg HS YAKOV Administration Baclofen 10 mg 11/19/19 21:00 11/23/19 12:24 Lioresal PO 10 mg TID YAKOV Administration Carvedilol 3.125 mg 11/19/19 21:00 11/23/19 08:40 Coreg PO 3.125 mg BID YAKOV Administration Clonidine 0.1 mg 11/22/19 16:07 11/23/19 12:23 Catapres PO 0.1 mg BIDPRN PRN Administration SBP > 150 Enoxaparin Sodium 40 mg 11/20/19 09:00 11/23/19 12:37 Lovenox SC 40 mg 0900 YAKOV Administration Gabapentin 600 mg 11/20/19 09:00 11/23/19 12:26 Neurontin PO 600 mg DAILY YAKOV Administration Gabapentin 300 mg 11/19/19 21:00 11/22/19 20:59 Neurontin PO 300 mg QPM YAKOV Administration Hydralazine HCl 5 mg 11/19/19 17:30 11/22/19 23:40 Apresoline SLOW IVP 5 mg Q6H PRN Administration SBP Greater Than 170 Promethazine HCl 12.5 mg/ 50.5 mls @ 151.5 mls/hr 11/20/19 01:14 11/20/19 01: 36 Sodium Chloride IVPB 50.5 mls Q6H PRN Administration Nausea Lisinopril 2.5 mg 11/23/19 09:00 11/23/19 08:40 Zestril PO 2.5 mg BID YAKOV Administration Miscellaneous Medication 1 gm 11/20/19 09:00 11/23/19 12:28 Vascepa PO 1 gm DAILY YAKOV Administration Ondansetron HCl 4 mg 11/19/19 17:34 11/23/19 07:57 Zofran IVP 4 mg Q6H PRN Administration Nausea/Vomiting Pantoprazole Sodium 40 mg 11/19/19 21:00 11/23/19 12:37 Protonix IVP 40 mg Q12HR YAKOV Administration Butrans ( 0 each 11/21/19 14:00 11/21/19 13:32 Buprenorphine) 20 TD 1 each Mcg/Hr Patch Q6D YAKOV Administration Promethazine HCl 12.5 mg 11/19/19 19:06 11/23/19 12:34 Phenergan IM/IV 12.5 mg Q6H PRN Administration Nausea/Vomiting - Exam Eye: PERRL, anicteric sclera Heart: RRR, no murmur, no gallops, no rubs, normal peripheral pulses Respiratory: CTAB, no wheezes, no rales, no ronchi, normal chest expansion Gastrointestinal: soft, non-tender, non-distended, normal bowel sounds, no palpable masses, no hepatomegaly Extremities: no cyanosis, 1+ LE edema Hosp A/P (1) Acute metabolic encephalopathy Code(s): G93.41 - METABOLIC ENCEPHALOPATHY Status: Acute (2) CAD (coronary artery disease) Code(s): I25.10 - ATHSCL HEART DISEASE OF [place] CORONARY ARTERY W/O ANG PCTRS Status: Chronic Qualifiers: Coronary Disease-Associated Artery/Lesion type: [place] artery [place] vs. transplanted heart: [place] heart Associated angina: without angina Qualified Code(s): I25.10 - Atherosclerotic heart disease of [place] coronary artery without angina pectoris (3) HTN (hypertension) Code(s): I10 - ESSENTIAL (PRIMARY) HYPERTENSION Status: Chronic Qualifiers: Hypertension type: essential hypertension Qualified Code(s): I10 - Essential (primary) hypertension (4) Migraine Code(s): G43.909 - MIGRAINE, UNSP, NOT INTRACTABLE, WITHOUT STATUS MIGRAINOSUS Status: Chronic (5) Hyponatremia Code(s): E87.1 - HYPO-OSMOLALITY AND HYPONATREMIA Status: Acute - Plan * Metabolic encephalopathy-improved * Migraine ELIAS- Prn Fioricet * Hyponatremia- her serum sodium level fell a little- will encourage p.o. intake and continue to monitor * UTI- will start Rocephin * HTN- blood pressure is better- continue Lisinopril and Carvediolol * Deconditioning- continue PT/OT and await Rehab screen
[2019-11-23] MEDS: cefTRIAXone\\ROCEPHIN 1 GM in Sodium Chloride 0.9% 100 ML IVPB SCH (14:46)
[2019-11-23] MEDS: Fioricet 325/50/40 mg Tablet PO PRN (14:46)
[2019-11-23] MEDS: Atorvastatin Calcium 20 MG TAB PO SCH (21:00)
[2019-11-24] MEDS: Ondansetron PF 4 MG/2 ML Vial IVP PRN ×2 (04:07→11:11)
[2019-11-24 05:36] LABS: Anion Gap 12 mmol/L (10-20); BUN (Urea Nitrogen) 9 mg/dL (9.8-20.1); Calc. Creatinine Clearance 99 mL/min (70-130); Calcium 8.8 mg/dL (7.8-10.44); Carbon Dioxide 26 mmol/L (23-31); Chloride 97 mmol/L (98-107); Estimated GFR-MDRD Greater than 90; Glucose 101 mg/dL (80-115); Potassium 4.1 mmol/L (3.5-5.1); Sodium 131 mmol/L (136-145)
[2019-11-24] MEDS: Carvedilol 3.125 MG TAB PO SCH ×2 (08:44→21:01)
[2019-11-24] MEDS: Baclofen 10 MG TAB PO SCH ×3 (08:44→21:01)
[2019-11-24] MEDS: Gabapentin 300 MG CAP PO SCH ×2 (08:44→21:06)
[2019-11-24] MEDS: Enoxaparin Sodium 40 MG/0.4 ML SYRINGE SC SCH (08:44)
[2019-11-24] MEDS: Aspirin 325 MG TAB PO SCH (08:44)
[2019-11-24] MEDS: Lisinopril 2.5 MG TAB PO SCH ×2 (08:44→21:00)
[2019-11-24] MEDS: Pantoprazole 40 MG VIAL IVP SCH ×2 (08:45→21:06)
[2019-11-24] MEDS: Icosapent Ethyl 1 GM CAPSULE PO SCH (08:52)
[2019-11-24] MEDS: Promethazine HCl 25 MG/ML VIAL IM/IV PRN (09:11)
[2019-11-24] MEDS: Acetaminophen 325 MG TAB PO PRN ×3 (11:11→21:54)
[2019-11-24] MEDS: cloNIDine 0.1 MG TAB PO PRN (11:11)
--- NOTE | 2019-11-24 11:57 | PDOC.HOSPP ---
- Subjective Encounter Date: 11/24/19 Encounter Time: 11:54 Subjective: Ms. Jack was seen today in follow-up of altered mental status. she does not have any new complaints. She is much more alert. She says she walked with physical therapy. The nausea and headache are both better as well. - Objective Vital Signs & Weight: Vital Signs (12 hours) Temp Pulse Resp BP BP BP Pulse Ox 11/24/19 11:11 153/85 H 11/24/19 11:07 98.2 F 85 16 153/85 H 96 11/24/19 10:36 163/89 H 11/24/19 08:44 89 150/82 H 11/24/19 07:18 98.5 F 89 14 150/82 H 94 L 11/24/19 03:48 98.1 F 89 18 109/69 95 11/24/19 00:00 98.3 F 84 18 156/86 H 95 Weight Weight 156 lb 3.2 oz I&O: 11/23/19 11/24/19 11/25/19 06:59 06:59 06:59 Intake Total 1230 1100 Output Total 2850 Balance -1620 1100 Result Diagrams: 11/20/19 04:35 11/24/19 04:34 Hospitalist ROS - Medication Medications: Active Medications Generic Name Dose Route Start Last Admin Trade Name Freq PRN Reason Stop Dose Admin Acetaminophen 650 mg 11/19/19 15:11 11/24/19 11:11 Tylenol PO 650 mg Q4H PRN Administration Headache/Fever/Mild Pain (1-3) Acetaminophen/Butalbital/Caffeine 1 tab 11/19/19 22:17 11/19/19 22:32 Fioricet PO 11/24/19 22:18 1 tab Q4H PRN Administration Headache Aspirin 325 mg 11/21/19 09:00 11/24/19 08:44 Aspirin PO 325 mg DAILY YAKOV Administration Atorvastatin Calcium 20 mg 11/19/19 21:00 11/23/19 21:00 Lipitor PO 20 mg HS YAKOV Administration Baclofen 10 mg 11/19/19 21:00 11/24/19 08:44 Lioresal PO 10 mg TID YAKOV Administration Carvedilol 3.125 mg 11/19/19 21:00 11/24/19 08:44 Coreg PO 3.125 mg BID YAKOV Administration Clonidine 0.1 mg 11/22/19 16:07 11/24/19 11:11 Catapres PO 0.1 mg BIDPRN PRN Administration SBP > 150 Enoxaparin Sodium 40 mg 11/20/19 09:00 11/24/19 08:44 Lovenox SC 40 mg 0900 YAKOV Administration Gabapentin 600 mg 11/20/19 09:00 11/24/19 08:44 Neurontin PO 600 mg DAILY YAKOV Administration Gabapentin 300 mg 11/19/19 21:00 11/23/19 21:01 Neurontin PO 300 mg QPM YAKOV Administration Hydralazine HCl 5 mg 11/19/19 17:30 11/22/19 23:40 Apresoline SLOW IVP 5 mg Q6H PRN Administration SBP Greater Than 170 Promethazine HCl 12.5 mg/ 50.5 mls @ 151.5 mls/hr 11/20/19 01:14 11/20/19 01: 36 Sodium Chloride IVPB 50.5 mls Q6H PRN Administration Nausea Ceftriaxone Sodium 1 gm/ 100 mls @ 200 mls/hr 11/23/19 15:00 11/23/19 14:46 Sodium Chloride IVPB 100 mls Q24HR YAKOV Administration Lisinopril 2.5 mg 11/23/19 09:00 11/24/19 08:44 Zestril PO 2.5 mg BID YAKOV Administration Miscellaneous Medication 1 gm 11/20/19 09:00 11/24/19 08:52 Vascepa PO 1 gm DAILY YAKOV Administration Ondansetron HCl 4 mg 11/19/19 17:34 11/24/19 11:11 Zofran IVP 4 mg Q6H PRN Administration Nausea/Vomiting Pantoprazole Sodium 40 mg 11/19/19 21:00 11/24/19 08:45 Protonix IVP 40 mg Q12HR YAKOV Administration Butrans ( 0 each 11/21/19 14:00 11/21/19 13:32 Buprenorphine) 20 TD 1 each Mcg/Hr Patch Q6D YAKOV Administration Promethazine HCl 12.5 mg 11/19/19 19:06 11/24/19 09:11 Phenergan IM/IV 12.5 mg Q6H PRN Administration Nausea/Vomiting - Exam Eye: PERRL Heart: RRR, no murmur, no gallops Respiratory: CTAB, no wheezes, no rales, no ronchi, normal chest expansion Gastrointestinal: soft, non-distended, normal bowel sounds Extremities: no cyanosis, no edema Hosp A/P (1) Acute metabolic encephalopathy Code(s): G93.41 - METABOLIC ENCEPHALOPATHY Status: Acute (2) CAD (coronary artery disease) Code(s): I25.10 - ATHSCL HEART DISEASE OF [place] CORONARY ARTERY W/O ANG PCTRS Status: Chronic Qualifiers: Coronary Disease-Associated Artery/Lesion type: [place] artery [place] vs. transplanted heart: [place] heart Associated angina: without angina Qualified Code(s): I25.10 - Atherosclerotic heart disease of [place] coronary artery without angina pectoris (3) HTN (hypertension) Code(s): I10 - ESSENTIAL (PRIMARY) HYPERTENSION Status: Chronic Qualifiers: Hypertension type: essential hypertension Qualified Code(s): I10 - Essential (primary) hypertension (4) Migraine Code(s): G43.909 - MIGRAINE, UNSP, NOT INTRACTABLE, WITHOUT STATUS MIGRAINOSUS Status: Chronic (5) Hyponatremia Code(s): E87.1 - HYPO-OSMOLALITY AND HYPONATREMIA Status: Acute - Plan * Metabolic encephalopathy-improved * Migraine ELIAS- she says plain Tylenol worked well for her * Hyponatremia- her serum sodium level fell a little-stable at 131 * UTI- continue Rocephin pending sensitivities * HTN- blood pressure is better- continue Lisinopril and Carvediolol * Deconditioning- continue PT/OT and await Rehab screen
[2019-11-24] MEDS: cefTRIAXone\\ROCEPHIN 1 GM in Sodium Chloride 0.9% 100 ML IVPB SCH (15:12)
[2019-11-24] MEDS: hydrALAZINE 20 MG/ML VIAL SLOW IVP PRN (15:12)
[2019-11-24] MEDS: Atorvastatin Calcium 20 MG TAB PO SCH (21:01)
--- NOTE | 2019-11-24 21:33 | EKG ---
Test Reason : Blood Pressure : / mmHG Vent. Rate : 079 BPM Atrial Rate : 079 BPM P-R Int : 148 ms QRS Dur : 078 ms QT Int : 406 ms P-R-T Axes : 037 066 029 degrees QTc Int : 465 ms Normal sinus rhythm Normal ECG When compared with ECG of 19-NOV-2019 11:32, (Unconfirmed) ST elevation now present in Inferior leads Confirmed by JORJE MONAE, SMerna (4) on 11/24/2019 9:32:55 PM Referred By: JOHNNIE Confirmed By:DR. Stacy RECINOS MD
--- NOTE | 2019-11-24 21:35 | EKG ---
Test Reason : STAT Blood Pressure : / mmHG Vent. Rate : 095 BPM Atrial Rate : 095 BPM P-R Int : 146 ms QRS Dur : 082 ms QT Int : 382 ms P-R-T Axes : 026 005 010 degrees QTc Int : 480 ms Normal sinus rhythm Normal ECG When compared with ECG of 19-NOV-2019 20:24, (Unconfirmed) Questionable change in QRS axis ST no longer elevated in Inferior leads Confirmed by JORJE MONAE, SMerna (4) on 11/24/2019 9:35:10 PM Referred By: JERICHO Confirmed By:DR. Stacy RECINOS MD
[2019-11-25] MEDS: cloNIDine 0.1 MG TAB PO PRN ×2 (00:04→11:16)
[2019-11-25] MEDS: Ondansetron PF 4 MG/2 ML Vial IVP PRN (02:59)
[2019-11-25] MEDS ORDERED: diphenhydrAMINE 12.5 MG/5 ML UDCUP PO SCH (03:00)
[2019-11-25] MEDS ORDERED: Nitroglycerin 0.4 MG TAB (25 Tab Bottle) PO PRN (03:22)
--- NOTE | 2019-11-25 03:25 | PDOC.EVN ---
Event Note - Event Note Event Note: RN called - Pt has CP. Will get EKG/trop
[2019-11-25 05:00] LABS: Anion Gap 12 mmol/L (10-20); BUN (Urea Nitrogen) 7 mg/dL (9.8-20.1); Calc. Creatinine Clearance 94 mL/min (70-130); Calcium 8.8 mg/dL (7.8-10.44); Carbon Dioxide 25 mmol/L (23-31); Chloride 98 mmol/L (98-107); Estimated GFR-MDRD Greater than 90; Glucose 99 mg/dL (80-115); Magnesium 1.5 mg/dL (1.6-2.6); Potassium 3.5 mmol/L (3.5-5.1); Sodium 131 mmol/L (136-145); Troponin I Less than 0.010 ng/mL (< 0.028)
[2019-11-25] MEDS ORDERED: Potassium Chloride 20 MEQ TAB PO SCH (05:30)
[2019-11-25] MEDS ORDERED: Magnesium Sulfate 4 GM in Sodium Chloride 0.9% 250 ML 250 ML IVPB SCH (06:00)
[2019-11-25 08:51] LABS: Troponin I Less than 0.010 ng/mL (< 0.028)
[2019-11-25] MEDS ORDERED: Cyanocobalamin (Vitamin B-12) 1,000 MCG TAB PO SCH (09:00)
[2019-11-25] MEDS: Baclofen 10 MG TAB PO SCH ×2 (09:35→15:20)
[2019-11-25] MEDS: Lisinopril 2.5 MG TAB PO SCH (09:35)
[2019-11-25] MEDS: Icosapent Ethyl 1 GM CAPSULE PO SCH (09:35)
[2019-11-25] MEDS: Enoxaparin Sodium 40 MG/0.4 ML SYRINGE SC SCH (09:35)
[2019-11-25] MEDS: Gabapentin 300 MG CAP PO SCH (09:36)
[2019-11-25] MEDS: Aspirin 325 MG TAB PO SCH (09:36)
[2019-11-25] MEDS: Carvedilol 3.125 MG TAB PO SCH (09:36)
[2019-11-25] MEDS: Pantoprazole 40 MG VIAL IVP SCH (09:37)
[2019-11-25 11:24] VITALS: TEMP 98
--- NOTE | 2019-11-25 14:30 | PDOC.HOSPP ---
- Subjective Encounter Date: 11/25/19 Encounter Time: 14:27 Subjective: Ms. Jack was seen today in follow-up of altered mental status, and UTI. She is feeling much better now. No new complaints. - Objective Vital Signs & Weight: Vital Signs (12 hours) Temp Pulse Resp BP BP Pulse Ox 11/25/19 11:16 169/84 H 11/25/19 10:54 98 F 88 16 158/90 H 95 11/25/19 09:35 90 11/25/19 07:11 97.9 F 90 16 153/81 H 96 11/25/19 04:00 149/82 H 11/25/19 03:01 97.6 F 84 16 153/83 H 96 Weight Weight 156 lb 3.2 oz I&O: 11/24/19 11/25/19 11/26/19 06:59 06:59 06:59 Intake Total 1100 1420 Balance 1100 1420 Result Diagrams: 11/20/19 04:35 11/25/19 04:11 Hospitalist ROS - Medication Medications: Active Medications Generic Name Dose Route Start Last Admin Trade Name Freq PRN Reason Stop Dose Admin Acetaminophen 650 mg 11/19/19 15:11 11/24/19 21:54 Tylenol PO 650 mg Q4H PRN Administration Headache/Fever/Mild Pain (1-3) Alprazolam 0.25 mg 11/23/19 14:32 11/24/19 16:12 Xanax PO 0.25 mg TIDPRN PRN Administration Anxiety Aspirin 325 mg 11/21/19 09:00 11/25/19 09:36 Aspirin PO 325 mg DAILY YAKOV Administration Atorvastatin Calcium 20 mg 11/19/19 21:00 11/24/19 21:01 Lipitor PO 20 mg HS YAKOV Administration Baclofen 10 mg 11/19/19 21:00 11/25/19 09:35 Lioresal PO 10 mg TID YAKOV Administration Carvedilol 3.125 mg 11/19/19 21:00 11/25/19 09:36 Coreg PO 3.125 mg BID YAKOV Administration Clonidine 0.1 mg 11/22/19 16:07 11/25/19 11:16 Catapres PO 0.1 mg BIDPRN PRN Administration SBP > 150 Cyanocobalamin 1,000 mcg 11/25/19 09:00 11/25/19 09:37 Vitamin B-12 PO 1,000 mcg DAILY YAKOV Administration Enoxaparin Sodium 40 mg 11/20/19 09:00 11/25/19 09:35 Lovenox SC 40 mg 0900 YAKOV Administration Gabapentin 600 mg 11/20/19 09:00 11/25/19 09:36 Neurontin PO 600 mg DAILY YAKOV Administration Gabapentin 300 mg 11/19/19 21:00 11/24/19 21:06 Neurontin PO 300 mg QPM YAKOV Administration Hydralazine HCl 5 mg 11/19/19 17:30 11/24/19 15:12 Apresoline SLOW IVP 5 mg Q6H PRN Administration SBP Greater Than 170 Promethazine HCl 12.5 mg/ 50.5 mls @ 151.5 mls/hr 11/20/19 01:14 11/20/19 01: 36 Sodium Chloride IVPB 50.5 mls Q6H PRN Administration Nausea Ceftriaxone Sodium 1 gm/ 100 mls @ 200 mls/hr 11/23/19 15:00 11/24/19 15:12 Sodium Chloride IVPB 100 mls Q24HR YAKOV Administration Lisinopril 2.5 mg 11/23/19 09:00 11/25/19 09:35 Zestril PO 2.5 mg BID YAKOV Administration Miscellaneous Medication 1 gm 11/20/19 09:00 11/25/19 09:35 Vascepa PO 1 gm DAILY YAKOV Administration Ondansetron HCl 4 mg 11/19/19 17:34 11/25/19 02:59 Zofran IVP 4 mg Q6H PRN Administration Nausea/Vomiting Pantoprazole Sodium 40 mg 11/19/19 21:00 11/25/19 09:37 Protonix IVP 40 mg Q12HR YAKOV Administration Butrans ( 0 each 11/21/19 14:00 11/21/19 13:32 Buprenorphine) 20 TD 1 each Mcg/Hr Patch Q6D YAKOV Administration Promethazine HCl 12.5 mg 11/19/19 19:06 11/24/19 09:11 Phenergan IM/IV 12.5 mg Q6H PRN Administration Nausea/Vomiting - Exam Eye: PERRL Heart: RRR, no murmur, no gallops, no rubs, normal peripheral pulses Respiratory: CTAB, no wheezes, no rales, no ronchi, normal chest expansion, no tachypnea, normal percussion Gastrointestinal: soft, non-tender, non-distended, normal bowel sounds, no palpable masses, no hepatomegaly Extremities: no cyanosis, no edema Hosp A/P (1) Acute metabolic encephalopathy Code(s): G93.41 - METABOLIC ENCEPHALOPATHY Status: Acute (2) CAD (coronary artery disease) Code(s): I25.10 - ATHSCL HEART DISEASE OF [place] CORONARY ARTERY W/O ANG PCTRS Status: Chronic Qualifiers: Coronary Disease-Associated Artery/Lesion type: [place] artery [place] vs. transplanted heart: [place] heart Associated angina: without angina Qualified Code(s): I25.10 - Atherosclerotic heart disease of [place] coronary artery without angina pectoris (3) HTN (hypertension) Code(s): I10 - ESSENTIAL (PRIMARY) HYPERTENSION Status: Chronic Qualifiers: Hypertension type: essential hypertension Qualified Code(s): I10 - Essential (primary) hypertension (4) Migraine Code(s): G43.909 - MIGRAINE, UNSP, NOT INTRACTABLE, WITHOUT STATUS MIGRAINOSUS Status: Chronic (5) Hyponatremia Code(s): E87.1 - HYPO-OSMOLALITY AND HYPONATREMIA Status: Acute - Plan * Metabolic encephalopathy-resolved- most likely due to over medication and hyponatremia * Migraine ELIAS- she says plain Tylenol worked well for her * Hyponatremia- her serum sodium level fell a little-stable at 131 * UTI- urine culture is growing E. Coli which is cage-sensitive * Stable for discharge home.
[2019-11-25] MEDS: cefTRIAXone\\ROCEPHIN 1 GM in Sodium Chloride 0.9% 100 ML IVPB SCH (15:20)
[2019-11-25 15:23] VITALS: BP 148/72
--- NOTE | 2019-11-25 18:20 | DIS ---
DATE OF ADMISSION: 11/19/2019 DATE OF DISCHARGE: 11/25/2019 DISCHARGE DISPOSITION: Home with home health with [facility]. DISCHARGE DIAGNOSES: 1. Toxic metabolic encephalopathy. 2. Polypharmacy. 3. Urinary tract infection. 4. Coronary artery disease, status post coronary artery bypass grafting. 5. History of ischemic colitis. 6. Chronic hemiplegic migraine. 7. Diabetes mellitus. 8. Dyslipidemia. 9. Chronic pain syndrome. 10. Anxiety and depression. DISCHARGE MEDICATIONS: The patient is being discharged on; 1. Omnicef 300 mg p.o. twice daily. 2. Florastor 250 mg daily. 3. Lisinopril 2.5 mg twice daily. 4. Gabapentin, the dose was decreased to 600 mg in the a.m., 300 mg q.p.m. 5. Clonidine 0.1 mg twice daily. 6. Dexilant 60 mg daily. 7. Aspirin 325 mg a day. 8. Symbicort 40 mg at bedtime. 9. Restasis eyedrops twice daily. 10. Ranitidine 300 mg daily. 11. Zofran 4 mg q.6 as needed. 12. Nitroglycerin 0.4 spray. 13. Linzess 290 mg daily. 14. Vascepa 1 g daily. 15. Folic acid 1 mg daily. 16. Dicyclomine one to two tablets t.i.d. 17. Celebrex 200 mg p.o. daily. 18. Carvedilol 3.125 mg twice daily. 19. Butrans 20 mcg every 6 days. 20. Biotin one tablet daily. 21. Baclofen 20 mg t.i.d. IMAGING DURING HOSPITAL STAY: The patient had a CT scan of the cervical spine showing no evidence of any osseous abnormalities. The patient had a CT scan of the brain showing no evidence of any acute intracranial abnormality. A repeat CT scan on 11/18, which was also negative. CODE STATUS: Full code. ALLERGIES: TO CIPROFLOXACIN AND REGLAN. HOSPITAL COURSE: Ms. Jack is a pleasant 69-year-old female, who presented to the emergency room with lethargy and somnolence. The full details of which are outlined in the history and physical by Dr. Landrum. She was admitted and had a CT scan of the brain done. This was negative. Neurology was consulted due to concerns for possible neurologic reason for her altered mental status. This was essentially negative. She also had carotid Dopplers, which showed some moderate flow-limiting disease. However, it is felt that her symptoms were most likely due to over medication. She was on several sedating medicines including Butrans. She was on a muscle relaxer including baclofen and Elavil. Elavil was discontinued. The dose of the gabapentin was decreased and this helped tremendously. She also was noted to be hyponatremic and this was also corrected during her hospital stay. This was likely due to a combination of volume depletion and the effects of Elavil. She developed the urinary tract infection during her hospital stay, likely due to the Davis catheter. This grew E coli, which was pansensitive and she was placed on antibiotics for this and will be discharged home on Omnicef. The patient was completely back to baseline at the time of discharge and is being discharged home with home health. She is to follow up with her primary care physician in 1 week. Job ID: [id number]
--- NOTE | 2019-11-26 13:29 | PQF ---
KAILA INFANTE TONI MD [id number] [facility] B- [id number] CLINICAL DOCUMENTATION CLARIFICATION FORM: POST DISCHARGE Addendum to original discharge summary date: ____ Late entry note date: __ DATE:11/26/2019 ATTN: YAMIL LYNCH MD Please exercise your independent, professional judgment in responding to the clarification form. Clinical indicators are provided on the bottom of this form for your review Please check appropriate box(s): kindly clarify the overmedication; [ ] Overdose of Butrans [ ] Adverse effects of Butrans [ ] Overdose of Elavil [ X ] Adverse effects of Elavil [ ] Overdose of Baclofen [ ] Adverse effects of Baclofen [ X] Other diagnosis Polypharmacy____ [ ] Unable to determine In addition, please specify: Present on Admission (POA): [ X ] Yes [ ] No [ ] Unable to determine For continuity of documentation, please document condition throughout progress notes and discharge summary. Thank You. CLINICAL INDICATORS - SIGNS / SYMPTOMS / LABS She might have had a confusional migraine versus being overmedicated superimposed with a headache -Documented in consultation on 11/19 by Sariah Rondon MD Toxic metabolic encephalopathy - Documented in discharge summary on 11/25/19 by Yamil Lynch MD It is felt that her symptoms were mostly likely due to over medication. She was on several sedating medicines including butrans. She was on a muscle relax including baclofen and Elavil-Documented in discharge summary on 11/25/19 by Yamil Lynch MD Polypharmacy-Documented in discharge summary on 11/25/19 by Yamil Lynch MD AMS-Documented in discharge summary on 11/25/19 by Yamil Lynch MD [employer] RISK FACTORS Polypharmacy-Documented in discharge summary on 11/25/19 by Yamil Lynch MD It is felt that her symptoms were mostly likely due to over medication. She was on several sedating medicines including butrans. She was on a muscle relax including baclofen and Elavil-Documented in discharge summary on 11/25/19 by Yamil Lynch MD TREATMENTS: Discontinue Butrans patch -Documented in consultation on 11/19 by Sariah Rondon MD Elavil was discontinued -Documented in discharge summary on 11/25/19 by Yamil Lynch MD CT scan of the Brain done-Documented in discharge summary on 11/25/19 by Yamil Lynch MD Neurology was consulted due to concerns for possible neurologic reason for her AMS-Documented in discharge summary on 11/25/19 by Yamil Lynch MD (This form is maintained as a part of the permanent medical record) 2014 [email or web address] All Rights Reserved [email or web address] [phone] MTDD
--- NOTE | 2019-11-26 22:42 | EKG ---
Test Reason : Blood Pressure : / mmHG Vent. Rate : 084 BPM Atrial Rate : 084 BPM P-R Int : 130 ms QRS Dur : 084 ms QT Int : 408 ms P-R-T Axes : 019 042 023 degrees QTc Int : 482 ms Normal sinus rhythm Normal ECG Confirmed by Patricia SLOAN ([id number]) on 11/26/2019 10:41:59 PM Referred By: CUATE Confirmed By:Patricia SLOAN
--- NOTE | 2019-11-29 01:53 | PQF ---
KAILA MCFARLANE YAMIL LYNCH MD [id number] [facility] B 3328 [id number] CLINICAL DOCUMENTATION CLARIFICATION FORM: POST DISCHARGE Addendum to original discharge summary date: ____ Late entry note date: __ DATE: 11/29/2019 ATTN: YAMIL LYNCH MD Please exercise your independent, professional judgment in responding to the clarification form. Clinical indicators are provided on the bottom of this form for your review Please check appropriate box(s): [ X ] Hyponatremia due to Amitriptyline [ ] Hyponatremia due to SIADH (Syndrome of Inappropriate Secretion of Antidiuretic Hormone) [ X] Other diagnosis _Hyponatremia due to volume depletion [ ] Unable to determine CLINICAL INDICATORS - SIGNS / SYMPTOMS / LABS Hyponatremia acute on chronic. -Documented in H&P on 11/18 by Aicha Landrum Hyponatremia likely SIADH with contribution from amitriptyline -Documented in Hospitalist progress note on 11/20 by Vijay Flores DO Sodium -131-Documented in laboratory RISK FACTORS Toxic metabolic encephalopathy-Documented in discharge summary on 11/24 by Yamil Lynch MD TREATMENTS: We will check a urine osmolality, serum osmolality and urine sodium and we continue to monitor -Documented in H&P on 11/18 by Aicha Landrum Start low -volume NS, Hold amitriptyline , Serial NA+ monitoring-Documented in Hospitalist progress note on 11/20 by Vijay Flores DO (This form is maintained as a part of the permanent medical record) 2014 [employer]. All Rights Reserved [email or web address] [phone] MTDD
== END 2019-11-25 16:36 | disposition home or self-care (01) | DRG 91 ==
LOC: ERS 11:23 → 2NO 14:35 → SURG B 11-22 18:19
PROVIDERS: ADMIT Internal Medicine; ATTEND Internal Medicine
DX: G92 Toxic encephalopathy (principal); R40.2112 Coma scale, eyes open, never, at arrival to emergency department; R40.2342 Coma scale, best motor response, flexion withdrawal, at arrival to emergency department; T83.511A Infection and inflammatory reaction due to indwelling urethral catheter, initial encounter; E87.1 Hypo-osmolality and hyponatremia; T43.015A Adverse effect of tricyclic antidepressants, initial encounter; Y84.6 Urinary catheterization as the cause of abnormal reaction of the patient, or of later complication, without mention of misadventure at the time of the procedure; B96.20 Unspecified Escherichia coli [E. coli] as the cause of diseases classified elsewhere; Z88.1 Allergy status to other antibiotic agents; Z88.8 Allergy status to other drugs, medicaments and biological substances; I25.10 Atherosclerotic heart disease of native coronary artery without angina pectoris; Z95.1 Presence of aortocoronary bypass graft; G43.909 Migraine, unspecified, not intractable, without status migrainosus; E78.5 Hyperlipidemia, unspecified; E11.9 Type 2 diabetes mellitus without complications; G89.4 Chronic pain syndrome; F32.9 Major depressive disorder, single episode, unspecified; F41.9 Anxiety disorder, unspecified; E86.9 Volume depletion, unspecified; R40.2232 Coma scale, best verbal response, inappropriate words, at arrival to emergency department; K58.9 Irritable bowel syndrome, unspecified; I10 Essential (primary) hypertension; Z90.710 Acquired absence of both cervix and uterus; Z90.49 Acquired absence of other specified parts of digestive tract; I16.0 Hypertensive urgency
CPT/HCPCS: 36415; 36416; 51701; 70450; 71045; 72125; 80048; 80053; 80306; 80307; 81001; 81003; 82140; 82533; 82550; 82607; 82746; 83690; 83735; 83930; 83935; 84300; 84443; 84484; 85025; 85610; 85730; 87077; 87086; 87186; 93005; 93010; 93880; 96374; 96375; C9113; J0360; J0696; J1650; J2405; J2550; J3475; J3490; J7050; Q0163

== ENCOUNTER 2020-03-22 10:14 | Outpatient (CLI) | payer MEDICARE ==
--- NOTE | 2020-03-22 12:02 | RAD ---
CHEST 2 VIEWS: COMPARISON: 12/02/2019. HISTORY: Followup lung nodule. FINDINGS: Sternotomy wires and atherosclerosis are redemonstrated. Stable elevation of the right hemidiaphragm and blunting of the right costophrenic angle. No consolidation. No masses. No radiographic eviden ce of a lung nodule. No pneumothorax or acute osseous abnormalities. Cervical fusion hardware is noted. IMPRESSION: No radiographic evidence of a nodule. Further evaluation with a chest CT may be beneficial. POS: [facility]
== END 2020-03-22 10:15 | disposition home or self-care (01) ==
LOC: RAD-FRANK 10:14
PROVIDERS: ATTEND Nurse Practitioner Family
DX: R91.1 Solitary pulmonary nodule (principal)
CPT/HCPCS: 71046; 80053; 80061

== ENCOUNTER 2020-12-11 08:19 | Inpatient (IN) | payer MEDICARE ==
[2020-12-11] MEDS ORDERED: Nitroglycerin 2% Ointment 1 INCH/1 GM Packet ONE (08:26)
[2020-12-11] MEDS ORDERED: Metoprolol Tartrate 5 MG/5 ML VIAL ONE (08:44)
[2020-12-11 08:46] LABS: #Basophils 0.1 thou/uL (0.0-0.2); #Eosinphils 0.1 thou/uL (0.0-0.7); #Lymphocytes 3.1 thou/uL (1.20-3.40); #Monocytes 0.8 thou/uL (0.11-0.59); #Neutrophils 3.6 thou/uL (1.40-6.50); %Basophils 0.8 % (0.0-1.0); %Eosinophils 0.9 % (0.0-10.0); %Lymphocytes 40.4 % (21.0-51.0); %Monocytes 10.4 % (0.0-10.0); %Neutrophils 47.5 % (42.0-75.0); Hemoglobin 13.6 g/dL (12.0-16.0); Mean Corpuscular HGB CONC 33.7 g/dL (32.0-36.0); Mean Corpuscular Hemoglobin 31.3 pg (27.0-31.0); Mean Corpuscular Volume 92.9 fL (78.0-98.0); Mean Platelet Volume 6.5 fL (7.4-10.4); Platelet Count 303 thou/uL (130-400); RBC Distribution Width 12.5 % (11.5-14.5); Red Blood Cell (RBC) Count 4.35 mill/uL (4.20-5.40); White Blood Cell (WBC) Count 7.5 thou/uL (4.8-10.8)
[2020-12-11 08:58] LABS: ALT (SGPT) 45 U/L (8-55); AST (SGOT) 33 U/L (5-34); Albumin 4.1 g/dL (3.4-4.8); Alkaline Phosphatase 89 U/L (40-110); Anion Gap 11 mmol/L (10-20); BUN (Urea Nitrogen) 13 mg/dL (9.8-20.1); Bilirubin, Total 0.4 mg/dL (0.2-1.2); CK (CPK) 28 U/L (29-168); Calc. Creatinine Clearance 0 mL/min (70-130); Calcium 9.1 mg/dL (7.8-10.44); Carbon Dioxide 29 mmol/L (23-31); Chloride 98 mmol/L (98-107); Globulin 2.9 g/dL (2.4-3.5); Glucose 99 mg/dL (80-115); Lipase 29 U/L (8-78); Potassium 3.9 mmol/L (3.5-5.1); Sodium 134 mmol/L (136-145)
[2020-12-11] MEDS ORDERED: Aspirin Chewable 81 MG TAB ONE (10:38)
[2020-12-11] MEDS ORDERED: Enoxaparin Sodium 80 MG/0.8 ML SYRINGE ONE (10:38)
[2020-12-11] MEDS ORDERED: Senokot S 8.6-50 MG TAB PO PRN (11:33)
[2020-12-11] MEDS ORDERED: Acetaminophen 325 MG TAB PO PRN (11:33)
[2020-12-11] MEDS ORDERED: Bisacodyl 10 MG SUPP PR PRN (11:33)
[2020-12-11] MEDS ORDERED: Loperamide HCl 2 MG CAP PO PRN (11:33)
[2020-12-11] MEDS ORDERED: Calcium Carbonate 500 MG ChewTAB PO PRN (11:33)
[2020-12-11] MEDS ORDERED: Ondansetron PF 4 MG/2 ML Vial IVP PRN (11:33)
[2020-12-11] MEDS ORDERED: Zolpidem Tartrate 5 MG TAB PO PRN (11:33)
[2020-12-11 12:09] LABS: Troponin I Less than 0.010 ng/mL (< 0.028)
[2020-12-11] MEDS ORDERED: Iopamidol-370 76% 500 ML 1 ML ONE (12:36)
[2020-12-11 12:46] VITALS: BMI 26.4
[2020-12-11] MEDS: Nitroglycerin 0.4 MG TAB (25 Tab Bottle) SL PRN ×2 (14:38→14:52)
[2020-12-11] MEDS: HYDROcodone/Acetaminophen 5/325 mg Tablet PO PRN (15:01)
[2020-12-11 15:08] LABS: Troponin I Less than 0.010 ng/mL (< 0.028)
[2020-12-11] MEDS ORDERED: Amlodipine 5 MG TAB PO SCH (17:45)
[2020-12-11] MEDS: Carvedilol 3.125 MG TAB PO SCH (17:54)
[2020-12-11] MEDS ORDERED: Baclofen 10 MG TAB PO SCH (18:45)
[2020-12-11] MEDS ORDERED: Gabapentin 300 MG CAP PO SCH (18:45)
[2020-12-11] MEDS: Famotidine 20 MG TAB PO SCH (20:43)
[2020-12-11] MEDS: Amitriptyline HCl 25 MG TAB PO SCH (20:43)
[2020-12-11] MEDS: carBAMazepine 100 mg Chewable Tablet PO SCH (20:43)
[2020-12-11] MEDS: Rosuvastatin 10 MG TAB PO SCH (20:43)
[2020-12-11] MEDS: Enoxaparin Sodium 80 MG/0.8 ML SYRINGE SC SCH (20:43)
[2020-12-11 21:58] LABS: SARS-CoV-2 PCR by NAA Not Detected (NotDetected)
[2020-12-12] MEDS: Nitroglycerin 0.4 MG TAB (25 Tab Bottle) SL PRN ×2 (00:10→15:01)
[2020-12-12] MEDS: HYDROcodone/Acetaminophen 5/325 mg Tablet PO PRN ×5 (00:12→22:48)
[2020-12-12 05:09] LABS: Cardiac Risk 2.4 (Less than 4.5)
[2020-12-12] MEDS: Enoxaparin Sodium 80 MG/0.8 ML SYRINGE SC SCH ×2 (07:57→20:42)
[2020-12-12] MEDS: Carvedilol 3.125 MG TAB PO SCH ×2 (08:00→16:54)
[2020-12-12] MEDS: Baclofen 10 MG TAB PO SCH ×3 (08:00→20:40)
[2020-12-12] MEDS: Aspirin 325 mg Enteric Coated Tablet PO SCH (08:01)
[2020-12-12] MEDS: Folic Acid 1 MG TAB PO SCH (08:01)
[2020-12-12] MEDS: Cholecalciferol 1,000 UNITS (25 MCG) TAB PO SCH (08:01)
[2020-12-12] MEDS: Famotidine 20 MG TAB PO SCH ×2 (08:01→20:40)
[2020-12-12] MEDS: Amlodipine 10 MG TAB PO SCH (08:01)
[2020-12-12] MEDS: Gabapentin 300 MG CAP PO SCH ×3 (08:03→20:39)
[2020-12-12] MEDS: Ondansetron ODT 4 MG TAB PO PRN ×2 (09:22→18:21)
[2020-12-12] MEDS ORDERED: Morphine 2 MG/ML VIAL SLOW IVP PRN (10:22)
[2020-12-12] MEDS: Fioricet 325/50/40 mg Tablet PO PRN ×2 (12:13→20:50)
[2020-12-12] MEDS ORDERED: Communication Order-Pharmacy FS SCH (18:30)
[2020-12-12] MEDS: carBAMazepine 100 mg Chewable Tablet PO SCH (20:39)
[2020-12-12] MEDS: Amitriptyline HCl 25 MG TAB PO SCH (20:40)
[2020-12-12] MEDS: Rosuvastatin 10 MG TAB PO SCH (20:40)
[2020-12-13] MEDS: Fioricet 325/50/40 mg Tablet PO PRN (01:30)
[2020-12-13] MEDS: Nitroglycerin 0.4 MG TAB (25 Tab Bottle) SL PRN ×3 (01:38→01:54)
[2020-12-13] MEDS ORDERED: Fentanyl 100 MCG/2 ML VIAL SLOW IVP PRN (02:01)
[2020-12-13] MEDS ORDERED: Sodium Chloride 0.9% 500 ML IV SCH (02:30)
[2020-12-13] MEDS ORDERED: Prochlorperazine Edisylate 10 MG in Sodium Chloride 0.9% 50 ML IVPB SCH (02:30)
[2020-12-13 03:14] LABS: Prothrombin Time 13.3 sec (12.0-14.7)
[2020-12-13 03:29] LABS: #Basophils 0.1 thou/uL (0.0-0.2); #Eosinphils 0.3 thou/uL (0.0-0.7); #Lymphocytes 2.6 thou/uL (1.20-3.40); #Monocytes 0.6 thou/uL (0.11-0.59); #Neutrophils 2.4 thou/uL (1.40-6.50); %Basophils 0.9 % (0.0-1.0); %Eosinophils 5.6 % (0.0-10.0); %Lymphocytes 43.7 % (21.0-51.0); %Monocytes 10.1 % (0.0-10.0); %Neutrophils 39.7 % (42.0-75.0); Hemoglobin 12.7 g/dL (12.0-16.0); Mean Corpuscular HGB CONC 32.6 g/dL (32.0-36.0); Mean Corpuscular Hemoglobin 30.2 pg (27.0-31.0); Mean Corpuscular Volume 92.6 fL (78.0-98.0); Mean Platelet Volume 6.3 fL (7.4-10.4); Platelet Count 281 thou/uL (130-400); RBC Distribution Width 12.3 % (11.5-14.5); Red Blood Cell (RBC) Count 4.19 mill/uL (4.20-5.40)
[2020-12-13 03:31] LABS: Troponin I 0.013 ng/mL (< 0.028)
[2020-12-13 03:43] LABS: Anion Gap 14 mmol/L (10-20); BUN (Urea Nitrogen) 9 mg/dL (9.8-20.1); Calc. Creatinine Clearance 74 mL/min (70-130); Calcium 8.5 mg/dL (7.8-10.44); Carbon Dioxide 24 mmol/L (23-31); Chloride 101 mmol/L (98-107); Glucose 103 mg/dL (80-115); Potassium 3.9 mmol/L (3.5-5.1); Sodium 135 mmol/L (136-145)
[2020-12-13] MEDS: Gabapentin 300 MG CAP PO SCH ×3 (05:47→21:35)
[2020-12-13] MEDS: Famotidine 20 MG TAB PO SCH ×2 (05:47→21:34)
[2020-12-13] MEDS: Amlodipine 10 MG TAB PO SCH (05:48)
[2020-12-13] MEDS: Carvedilol 3.125 MG TAB PO SCH ×2 (05:49→18:07)
[2020-12-13] MEDS: Aspirin 325 mg Enteric Coated Tablet PO SCH (05:49)
[2020-12-13] MEDS ORDERED: BUPRENORPHINE 15 MCG TOP SCH (09:00)
[2020-12-13] MEDS ORDERED: BUPRENORPHINE 5 MCG TD SCH (09:00)
[2020-12-13] MEDS ORDERED: Iopamidol 370 76% 100 ML VIAL ONE (10:54)
[2020-12-13] MEDS ORDERED: Lidocaine 1% (PF) 30 ML VIAL ONE ×2 (11:25→11:31)
[2020-12-13] MEDS ORDERED: Sodium Chloride 0.9% 200 ML IV PRN ×2 (13:31→14:01)
[2020-12-13] MEDS ORDERED: Acetaminophen/Codeine 30-300mg Tablet PO PRN ×4 (13:31→14:01)
[2020-12-13] MEDS ORDERED: Nitroglycerin 0.4 MG TAB (25 Tab Bottle) SL PRN ×2 (13:31→14:01)
[2020-12-13] MEDS: Baclofen 10 MG TAB PO SCH ×3 (14:22→21:33)
[2020-12-13] MEDS: Cholecalciferol 1,000 UNITS (25 MCG) TAB PO SCH (16:56)
[2020-12-13] MEDS: Folic Acid 1 MG TAB PO SCH (16:56)
[2020-12-13] MEDS: Amitriptyline HCl 25 MG TAB PO SCH (21:32)
[2020-12-13] MEDS: Rosuvastatin 10 MG TAB PO SCH (21:35)
[2020-12-13] MEDS: carBAMazepine 100 mg Chewable Tablet PO SCH (21:41)
[2020-12-13] MEDS: Ondansetron ODT 4 MG TAB PO PRN (22:09)
[2020-12-14] MEDS: Amlodipine 10 MG TAB PO SCH (08:18)
[2020-12-14] MEDS: Carvedilol 3.125 MG TAB PO SCH (08:18)
[2020-12-14] MEDS: Aspirin 325 mg Enteric Coated Tablet PO SCH (08:18)
[2020-12-14] MEDS: Folic Acid 1 MG TAB PO SCH (08:18)
[2020-12-14] MEDS: Baclofen 10 MG TAB PO SCH (08:19)
[2020-12-14] MEDS: Gabapentin 300 MG CAP PO SCH (08:20)
[2020-12-14] MEDS: Cholecalciferol 1,000 UNITS (25 MCG) TAB PO SCH (08:20)
[2020-12-14] MEDS: Famotidine 20 MG TAB PO SCH (08:20)
[2020-12-14 09:13] VITALS: TEMP 98.4
[2020-12-14 12:27] VITALS: BP 112/58
== END 2020-12-14 13:35 | disposition home or self-care (01) | DRG 287 ==
LOC: ERS 08:19 → 2SW 10:51 → OBSVTOIN 10:51
PROVIDERS: ADMIT Internal Medicine; ATTEND Family Medicine
PROC: 4A023N7 Measurement of Cardiac Sampling and Pressure, Left Heart, Percutaneous Approach (ICD-10-PCS; principal; 2020-12-11)
PROC: B2131ZZ Fluoroscopy of Multiple Coronary Artery Bypass Grafts using Low Osmolar Contrast (ICD-10-PCS; 2020-12-11)
PROC: B2151ZZ Fluoroscopy of Left Heart using Low Osmolar Contrast (ICD-10-PCS; 2020-12-11)
DX: I25.110 Atherosclerotic heart disease of native coronary artery with unstable angina pectoris (principal); E78.2 Mixed hyperlipidemia; R60.0 Localized edema; E87.5 Hyperkalemia; N18.9 Chronic kidney disease, unspecified; I51.9 Heart disease, unspecified; F41.9 Anxiety disorder, unspecified; F32.9 Major depressive disorder, single episode, unspecified; K21.9 Gastro-esophageal reflux disease without esophagitis; R55 Syncope and collapse; G89.4 Chronic pain syndrome; Z20.822 Contact with and (suspected) exposure to COVID-19; I12.9 Hypertensive chronic kidney disease with stage 1 through stage 4 chronic kidney disease, or unspecified chronic kidney disease; Z79.82 Long term (current) use of aspirin; Z90.49 Acquired absence of other specified parts of digestive tract; Z90.710 Acquired absence of both cervix and uterus; Z95.1 Presence of aortocoronary bypass graft; Z88.1 Allergy status to other antibiotic agents; Z88.8 Allergy status to other drugs, medicaments and biological substances
CPT/HCPCS: 36415; 70450; 71045; 71275; 80048; 80053; 80061; 82550; 83690; 83880; 84484; 85025; 85379; 85610; 87635; 93005; 93010; 93459; 93567; 94760; 96365; 96372; 96374; 96375; G0378; J0780; J1650; J2001; J2270; J3010; Q0162; Q9967; U0003; U0005

== ENCOUNTER 2021-06-10 15:15 | Emergency (ER) | payer MEDICARE ==
[2021-06-10 15:57] LABS: #Eosinphils 0.2 thou/uL (0.0-0.7); #Lymphocytes 1.7 thou/uL (1.20-3.40); #Monocytes 0.6 thou/uL (0.11-0.59); #Neutrophils 3.7 thou/uL (1.40-6.50); %Basophils 0.4 % (0.0-1.0); %Eosinophils 3.5 % (0.0-10.0); %Lymphocytes 26.9 % (21.0-51.0); %Neutrophils 60.2 % (42.0-75.0); Mean Corpuscular HGB CONC 33.7 g/dL (32.0-36.0); Mean Corpuscular Hemoglobin 32.8 pg (27.0-31.0); Mean Corpuscular Volume 97.1 fL (78.0-98.0); Mean Platelet Volume 6.3 fL (7.4-10.4); Platelet Count 281 thou/uL (130-400); RBC Distribution Width 11.7 % (11.5-14.5); Red Blood Cell (RBC) Count 3.97 mill/uL (4.20-5.40); White Blood Cell (WBC) Count 6.2 thou/uL (4.8-10.8)
[2021-06-10 16:22] LABS: ALT (SGPT) 19 U/L (8-55); AST (SGOT) 19 U/L (5-34); Albumin 3.6 g/dL (3.4-4.8); Alkaline Phosphatase 80 U/L (40-110); Anion Gap 10 mmol/L (10-20); BUN (Urea Nitrogen) 14 mg/dL (9.8-20.1); Bilirubin, Total 0.3 mg/dL (0.2-1.2); Calc. Creatinine Clearance 0 mL/min (70-130); Calcium 9.2 mg/dL (7.8-10.44); Carbon Dioxide 29 mmol/L (23-31); Chloride 101 mmol/L (98-107); Globulin 2.5 g/dL (2.4-3.5); Glucose 113 mg/dL (80-115); Potassium 4.5 mmol/L (3.5-5.1); Protein, Total 6.1 g/dL (5.8-8.1); Sodium 135 mmol/L (136-145)
[2021-06-10] MEDS ORDERED: cloNIDine 0.1 MG TAB ONE (17:47)
[2021-06-10 19:16] LABS: Bilirubin Negative (Negative); Blood, Urine Negative (Negative); Clarity Clear (Clear); Glucose, Urine (Dipstick) Normal (Negative); Ketone, Urine Negative (Negative); Leukocyte Negative Leu/uL (Negative); Nitrite Negative (Negative); Protein, Urine (Dipstick) Negative (Neg-Trace); Specific Gravity, Urine 1.008 (1.002-1.036); Urobilinogen Normal mg/dL (Less than 2); pH, Urine 5.5 (5.0-9.0)
== END 2021-06-10 20:10 | disposition home or self-care (01) ==
LOC: ERS 15:15
DX: R10.30 Lower abdominal pain, unspecified (principal); I25.10 Atherosclerotic heart disease of native coronary artery without angina pectoris; E78.5 Hyperlipidemia, unspecified; E78.00 Pure hypercholesterolemia, unspecified; I10 Essential (primary) hypertension; G43.409 Hemiplegic migraine, not intractable, without status migrainosus; Z85.828 Personal history of other malignant neoplasm of skin; Z79.82 Long term (current) use of aspirin; Z79.899 Other long term (current) drug therapy
CPT/HCPCS: 36415; 72131; 80053; 81003; 83605; 84484; 85025; 87086; 93005

== ENCOUNTER 2021-06-14 06:40 | Observation (INO) | payer MEDICARE ==
[2021-06-14 07:14] LABS: #Basophils 0.1 thou/uL (0.0-0.2); #Eosinphils 0.1 thou/uL (0.0-0.7); #Lymphocytes 1.9 thou/uL (1.20-3.40); #Monocytes 0.5 thou/uL (0.11-0.59); #Neutrophils 2.4 thou/uL (1.40-6.50); %Eosinophils 2.3 % (0.0-10.0); %Lymphocytes 38.7 % (21.0-51.0); %Monocytes 9.4 % (0.0-10.0); %Neutrophils 48.6 % (42.0-75.0); Hemoglobin 13.2 g/dL (12.0-16.0); Mean Corpuscular HGB CONC 33.7 g/dL (32.0-36.0); Mean Corpuscular Hemoglobin 32.1 pg (27.0-31.0); Mean Corpuscular Volume 95.5 fL (78.0-98.0); Mean Platelet Volume 6.5 fL (7.4-10.4); Platelet Count 255 thou/uL (130-400); RBC Distribution Width 11.3 % (11.5-14.5); White Blood Cell (WBC) Count 4.9 thou/uL (4.8-10.8)
[2021-06-14] MEDS ORDERED: Aspirin 325 MG TAB ONE (07:16)
[2021-06-14 07:31] LABS: ALT (SGPT) 20 U/L (8-55); AST (SGOT) 26 U/L (5-34); Albumin 3.4 g/dL (3.4-4.8); Alkaline Phosphatase 74 U/L (40-110); Anion Gap 15 mmol/L (10-20); BUN (Urea Nitrogen) 12 mg/dL (9.8-20.1); Bilirubin, Total 0.5 mg/dL (0.2-1.2); CK (CPK) 27 U/L (29-168); Calc. Creatinine Clearance 0 mL/min (70-130); Carbon Dioxide 22 mmol/L (23-31); Chloride 103 mmol/L (98-107); Globulin 2.7 g/dL (2.4-3.5); Glucose 87 mg/dL (80-115); Potassium 4.5 mmol/L (3.5-5.1); Protein, Total 6.1 g/dL (5.8-8.1); Sodium 135 mmol/L (136-145)
[2021-06-14] MEDS ORDERED: Ondansetron PF 4 MG/2 ML Vial ONE (07:44)
[2021-06-14] MEDS ORDERED: diphenhydrAMINE 50 MG/ML VIAL ONE (08:09)
[2021-06-14 08:18] LABS: PTT 33.8 sec (22.9-36.1); Prothrombin Time 13.3 sec (12.0-14.7)
[2021-06-14] MEDS ORDERED: Acetaminophen 500 MG TAB ONE (09:33)
[2021-06-14] MEDS ORDERED: Ketorolac Tromethamine 30 MG/ML VIAL ONE (09:33)
[2021-06-14 11:48] LABS: SARS-CoV-2 NAA Rapid Test Not Detected (NotDetected)
[2021-06-14] MEDS ORDERED: hydrALAZINE 20 MG/ML VIAL SLOW IVP PRN (14:34)
[2021-06-14 15:14] VITALS: BMI 25.4
[2021-06-14] MEDS: Acetaminophen 650 MG/20.3 ML UDCUP PO PRN (16:45)
[2021-06-14] MEDS: Ondansetron PF 4 MG/2 ML Vial IVP PRN (16:46)
[2021-06-14] MEDS: cloNIDine 0.1 MG TAB PO PRN (18:48)
[2021-06-14] MEDS ORDERED: Gabapentin 300 MG CAP PO SCH (20:30)
[2021-06-14] MEDS ORDERED: BUPRENORPHINE HCL 150 MCG FS SCH (21:00)
[2021-06-14] MEDS: Famotidine 20 MG TAB PO SCH (21:22)
[2021-06-14] MEDS: Baclofen 10 MG TAB PO SCH (21:22)
[2021-06-14] MEDS: Multivitamin W/ Minerals 1 TAB PO SCH (21:23)
[2021-06-14] MEDS: Icosapent Ethyl 1 GM CAPSULE PO SCH (21:23)
[2021-06-14] MEDS: Amitriptyline HCl 25 MG TAB PO SCH (21:23)
[2021-06-14] MEDS: carBAMazepine 100 mg Chewable Tablet PO SCH (21:24)
[2021-06-14] MEDS ORDERED: Carvedilol 6.25 MG TAB PO SCH (21:30)
[2021-06-15] MEDS ORDERED: hydrALAZINE 20 MG/ML VIAL SLOW IVP SCH (01:37)
[2021-06-15] MEDS: Acetaminophen 650 MG/20.3 ML UDCUP PO PRN ×3 (03:26→20:11)
[2021-06-15] MEDS ORDERED: Melatonin 3 MG TAB PO PRN (04:35)
[2021-06-15] MEDS ORDERED: HYDROcodone/Acetaminophen 5/325 mg Tablet PO SCH (04:45)
[2021-06-15 06:20] LABS: Cardiac Risk 2.3 (Less than 4.5)
[2021-06-15] MEDS: Carvedilol 6.25 MG TAB PO SCH ×2 (08:28→17:40)
[2021-06-15] MEDS: Aspirin 325 mg Enteric Coated Tablet PO SCH (08:28)
[2021-06-15] MEDS: Ondansetron PF 4 MG/2 ML Vial IVP PRN (08:28)
[2021-06-15] MEDS: Baclofen 10 MG TAB PO SCH ×3 (08:28→20:10)
[2021-06-15] MEDS: Furosemide 40 MG TAB PO SCH (08:29)
[2021-06-15] MEDS: Folic Acid 1 MG TAB PO SCH (08:29)
[2021-06-15] MEDS: Cholecalciferol 1,000 UNITS (25 MCG) TAB PO SCH (08:30)
[2021-06-15] MEDS ORDERED: Aspirin 325 mg Enteric Coated Tablet PO SCH (09:00)
[2021-06-15] MEDS ORDERED: BUPRENORPHINE 15 MCG TD SCH (09:00)
[2021-06-15] MEDS ORDERED: Linaclotide [Linzess] 290 MCG Capsule PO SCH (09:00)
[2021-06-15] MEDS ORDERED: BIOTIN 1 MG PO SCH (09:00)
[2021-06-15] MEDS: cloNIDine 0.1 MG TAB PO PRN (09:44)
[2021-06-15] MEDS ORDERED: Gabapentin 300 MG CAP PO SCH ×2 (11:13→11:45)
[2021-06-15] MEDS: Icosapent Ethyl 1 GM CAPSULE PO SCH ×2 (11:17→20:30)
[2021-06-15] MEDS: Rosuvastatin 10 MG TAB PO SCH (14:02)
[2021-06-15] MEDS: Amlodipine 5 MG TAB PO SCH (14:02)
[2021-06-15] MEDS: Promethazine 25 MG TAB PO PRN ×2 (14:09→20:09)
[2021-06-15] MEDS: Famotidine 20 MG TAB PO SCH (20:10)
[2021-06-15] MEDS: Gabapentin 300 MG CAP PO SCH (20:10)
[2021-06-15] MEDS: Amitriptyline HCl 25 MG TAB PO SCH (20:10)
[2021-06-15] MEDS: Multivitamin W/ Minerals 1 TAB PO SCH (20:10)
[2021-06-15] MEDS: carBAMazepine 100 mg Chewable Tablet PO SCH (20:30)
[2021-06-16] MEDS: Acetaminophen 650 MG/20.3 ML UDCUP PO PRN (08:50)
[2021-06-16] MEDS: Folic Acid 1 MG TAB PO SCH (08:52)
[2021-06-16] MEDS: Baclofen 10 MG TAB PO SCH ×2 (08:53→16:22)
[2021-06-16] MEDS: Furosemide 40 MG TAB PO SCH (08:54)
[2021-06-16] MEDS: Cholecalciferol 1,000 UNITS (25 MCG) TAB PO SCH (08:54)
[2021-06-16] MEDS: Aspirin 325 mg Enteric Coated Tablet PO SCH (08:54)
[2021-06-16] MEDS: Carvedilol 6.25 MG TAB PO SCH (08:54)
[2021-06-16] MEDS ORDERED: Gabapentin 300 MG CAP PO SCH ×2 (09:00→12:00)
[2021-06-16 10:26] LABS: #Eosinphils 0.1 thou/uL (0.0-0.7); #Lymphocytes 2.1 thou/uL (1.20-3.40); #Monocytes 0.6 thou/uL (0.11-0.59); %Basophils 0.4 % (0.0-1.0); %Lymphocytes 29.9 % (21.0-51.0); %Monocytes 9.2 % (0.0-10.0); %Neutrophils 58.5 % (42.0-75.0); Hemoglobin 12.9 g/dL (12.0-16.0); Mean Corpuscular HGB CONC 33.2 g/dL (32.0-36.0); Mean Corpuscular Hemoglobin 31.8 pg (27.0-31.0); Mean Corpuscular Volume 95.8 fL (78.0-98.0); Mean Platelet Volume 6.5 fL (7.4-10.4); Platelet Count 279 thou/uL (130-400); RBC Distribution Width 11.6 % (11.5-14.5); Red Blood Cell (RBC) Count 4.06 mill/uL (4.20-5.40); White Blood Cell (WBC) Count 6.8 thou/uL (4.8-10.8)
[2021-06-16 10:43] LABS: ALT (SGPT) 15 U/L (8-55); AST (SGOT) 20 U/L (5-34); Albumin 3.5 g/dL (3.4-4.8); Alkaline Phosphatase 73 U/L (40-110); Anion Gap 15 mmol/L (10-20); BUN (Urea Nitrogen) 11 mg/dL (9.8-20.1); Bilirubin, Total 0.4 mg/dL (0.2-1.2); Calc. Creatinine Clearance 67 mL/min (70-130); Calcium 8.9 mg/dL (7.8-10.44); Carbon Dioxide 25 mmol/L (23-31); Chloride 96 mmol/L (98-107); Globulin 2.4 g/dL (2.4-3.5); Glucose 111 mg/dL (80-115); Potassium 3.5 mmol/L (3.5-5.1); Protein, Total 5.9 g/dL (5.8-8.1); Sodium 132 mmol/L (136-145)
[2021-06-16] MEDS: Ondansetron PF 4 MG/2 ML Vial IVP PRN (10:56)
[2021-06-16] MEDS: Icosapent Ethyl 1 GM CAPSULE PO SCH (10:57)
[2021-06-16] MEDS: Gabapentin 300 MG CAP PO SCH (12:31)
[2021-06-16] MEDS: Rosuvastatin 10 MG TAB PO SCH (12:32)
[2021-06-16 12:37] VITALS: TEMP 98.3
[2021-06-16 16:20] VITALS: BP 110/64
[2021-06-16] MEDS: Amlodipine 5 MG TAB PO SCH (16:22)
== END 2021-06-16 17:11 | disposition home or self-care (01) ==
LOC: ERS 06:40 → 3SE 08:21
PROVIDERS: ADMIT Internal Medicine; ATTEND Internal Medicine
DX: R53.1 Weakness (principal); G43.409 Hemiplegic migraine, not intractable, without status migrainosus; I25.10 Atherosclerotic heart disease of native coronary artery without angina pectoris; E78.5 Hyperlipidemia, unspecified; I16.0 Hypertensive urgency; I10 Essential (primary) hypertension; G89.29 Other chronic pain; R20.0 Anesthesia of skin; I70.0 Atherosclerosis of aorta; I70.8 Atherosclerosis of other arteries; I67.2 Cerebral atherosclerosis; I65.03 Occlusion and stenosis of bilateral vertebral arteries; I65.23 Occlusion and stenosis of bilateral carotid arteries; I08.3 Combined rheumatic disorders of mitral, aortic and tricuspid valves; Z79.82 Long term (current) use of aspirin; Z79.899 Other long term (current) drug therapy; Z88.1 Allergy status to other antibiotic agents; Z88.2 Allergy status to sulfonamides; Z88.8 Allergy status to other drugs, medicaments and biological substances; Z95.1 Presence of aortocoronary bypass graft; Z98.1 Arthrodesis status; Z20.822 Contact with and (suspected) exposure to COVID-19
CPT/HCPCS: 70450; 70496; 70498; 70551; 71045; 80053 ×2; 80061; 82550; 82962; 84484; 85025 ×2; 85610; 85730; 93005; 93306; 96374; 96375; 97110; 97139 ×3; 98960; 99285; U0002; 36415; 36416; 96376; G0378; J0360; J1200; J1885; J2405; Q0169

== ENCOUNTER 2021-07-07 14:09 | Outpatient (CLI) | payer MEDICARE | END 2021-07-07 14:10 | disposition home or self-care (01) | LOC: BICMAMMO 14:09 | PROVIDERS: ATTEND Nurse Practitioner Family | DX: Z12.31 Encounter for screening mammogram for malignant neoplasm of breast (principal); M85.80 Other specified disorders of bone density and structure, unspecified site; Z85.89 Personal history of malignant neoplasm of other organs and systems; M81.0 Age-related osteoporosis without current pathological fracture | CPT/HCPCS: 77063; 77067; 77080 ==

== ENCOUNTER 2021-08-09 07:58 | Outpatient (CLI) | payer MEDICARE ==
[2021-08-09] MEDS ORDERED: Iopamidol-370 76% 500 ML 1 ML ONE (13:37)
== END 2021-08-09 07:59 | disposition home or self-care (01) ==
LOC: BICCT 07:58
PROVIDERS: ATTEND Internal Medicine Gastroenterology
DX: K55.9 Vascular disorder of intestine, unspecified (principal)
CPT/HCPCS: 74174; 82565; Q9967

== ENCOUNTER 2022-04-19 12:08 | Emergency (ER) | payer OTHER, MEDICARE ==
[2022-04-19] MEDS ORDERED: Morphine 4 MG/ML VIAL ONE (13:51)
[2022-04-19 14:24] LABS: #Eosinphils 0.2 thou/uL (0.0-0.7); #Lymphocytes 1.7 thou/uL (1.20-3.40); #Monocytes 0.6 thou/uL (0.11-0.59); #Neutrophils 4.1 thou/uL (1.40-6.50); %Basophils 0.5 % (0.0-1.0); %Eosinophils 2.7 % (0.0-10.0); %Lymphocytes 25.3 % (21.0-51.0); %Monocytes 9.2 % (0.0-10.0); %Neutrophils 62.2 % (42.0-75.0); Hemoglobin 13.3 g/dL (12.0-16.0); Mean Corpuscular HGB CONC 32.5 g/dL (32.0-36.0); Mean Corpuscular Hemoglobin 32.3 pg (27.0-31.0); Mean Corpuscular Volume 99.3 fL (78.0-98.0); Mean Platelet Volume 6.1 fL (7.4-10.4); Platelet Count 337 thou/uL (130-400); RBC Distribution Width 12.3 % (11.5-14.5); Red Blood Cell (RBC) Count 4.13 mill/uL (4.20-5.40); White Blood Cell (WBC) Count 6.5 thou/uL (4.8-10.8)
[2022-04-19 14:40] LABS: ALT (SGPT) 15 U/L (8-55); AST (SGOT) 18 U/L (5-34); Albumin 3.7 g/dL (3.4-4.8); Alkaline Phosphatase 77 U/L (40-110); Anion Gap 15 mmol/L (10-20); BUN (Urea Nitrogen) 13 mg/dL (9.8-20.1); Bilirubin, Total 0.4 mg/dL (0.2-1.2); Calc. Creatinine Clearance 0 mL/min (70-130); Carbon Dioxide 27 mmol/L (23-31); Chloride 100 mmol/L (98-107); Estimated GFR 92; Globulin 2.4 g/dL (2.4-3.5); Glucose 100 mg/dL (83-110); Potassium 4.3 mmol/L (3.5-5.1); Protein, Total 6.1 g/dL (5.8-8.1); Sodium 138 mmol/L (136-145)
[2022-04-19] MEDS ORDERED: Labetalol HCl 100 MG/20 ML VIAL ONE (14:51)
[2022-04-19] MEDS ORDERED: Diazepam 5 MG TAB ONE (14:53)
== END 2022-04-19 17:08 | disposition home or self-care (01) ==
LOC: ERS 12:08
DX: S00.93XA Contusion of unspecified part of head, initial encounter (principal); M54.50 Low back pain, unspecified; I10 Essential (primary) hypertension; E78.00 Pure hypercholesterolemia, unspecified; I25.10 Atherosclerotic heart disease of native coronary artery without angina pectoris; W01.198A Fall on same level from slipping, tripping and stumbling with subsequent striking against other object, initial encounter; Y92.009 Unspecified place in unspecified non-institutional (private) residence as the place of occurrence of the external cause; Z79.82 Long term (current) use of aspirin; Z79.899 Other long term (current) drug therapy
CPT/HCPCS: 36415; 70450; 72125; 72128; 72131; 72170; 80053; 85025; 96374; 96375; J2270

== ENCOUNTER 2022-09-16 21:02 | Emergency (ER) | payer MEDICARE ==
[~2022-09-16 21:02] MED LIST: Iopamidol-370 76% 500 ML 1 ML ONE
[2022-09-16 21:29] LABS: #Eosinphils 0.2 thou/uL (0.0-0.7); #Lymphocytes 1.3 thou/uL (1.20-3.40); #Monocytes 0.8 thou/uL (0.11-0.59); %Basophils 0.4 % (0.0-1.0); %Eosinophils 3.2 % (0.0-10.0); %Lymphocytes 20.2 % (21.0-51.0); %Monocytes 12.6 % (0.0-10.0); %Neutrophils 63.5 % (42.0-75.0); Hemoglobin 12.5 g/dL (12.0-16.0); Mean Corpuscular Hemoglobin 33.2 pg (27.0-31.0); Mean Corpuscular Volume 97.6 fl (78.0-98.0); Platelet Count 288 10x3/uL (130-400); RBC Distribution Width 12.8 % (11.5-14.5); Red Blood Cell (RBC) Count 3.76 mill/uL (4.20-5.40); White Blood Cell (WBC) Count 6.3 10x3/uL (4.8-10.8)
[2022-09-16 21:49] LABS: Albumin 3.2 g/dL (3.4-4.8)
[2022-09-16 21:51] LABS: Chloride 97 mmol/L (98-107); Potassium 4.2 mmol/L (3.5-5.1); Sodium 131 mmol/L (136-145)
[2022-09-16 21:52] LABS: Glucose 95 mg/dL (83-110); Protein, Total 5.2 g/dL (5.8-8.1)
[2022-09-16 21:53] LABS: Carbon Dioxide 25 mmol/L (23-31)
[2022-09-16 21:54] LABS: Bilirubin, Total 0.3 mg/dL (0.2-1.2)
[2022-09-16 21:55] LABS: Alkaline Phosphatase 70 U/L (40-110); Calc. Creatinine Clearance 0 mL/min (70-130); Estimated GFR 92
[2022-09-16 21:56] LABS: BUN (Urea Nitrogen) 10 mg/dL (9.8-20.1)
[2022-09-16 21:57] LABS: AST (SGOT) 21 U/L (5-34)
[2022-09-16 21:58] LABS: ALT (SGPT) 24 U/L (8-55)
[2022-09-16 22:13] LABS: Anion Gap 13 mmol/L (10-20)
[2022-09-16] MEDS ORDERED: HYDROcodone/Acetaminophen 5/325 mg Tablet ONE (23:24)
== END 2022-09-17 01:10 | disposition home or self-care (01) ==
LOC: ERS 21:02
DX: R52 Pain, unspecified (principal); R06.02 Shortness of breath; E78.00 Pure hypercholesterolemia, unspecified; I10 Essential (primary) hypertension; Z79.82 Long term (current) use of aspirin; Z79.899 Other long term (current) drug therapy
CPT/HCPCS: 36415; 71045; 71275; 80053; 83880; 84484; 85025; 93005; Q9967

== ENCOUNTER 2022-10-07 14:55 | Emergency (ER) | payer MEDICARE ==
[2022-10-07] MEDS ORDERED: HYDROcodone/Acetaminophen 10/325 mg Tablet ONE (15:24)
[2022-10-07 15:31] LABS: #Eosinphils 0.2 thou/uL (0.0-0.7); #Lymphocytes 1.2 thou/uL (1.20-3.40); #Monocytes 0.4 thou/uL (0.11-0.59); #Neutrophils 3.1 thou/uL (1.40-6.50); %Basophils 0.5 % (0.0-1.0); %Eosinophils 3.8 % (0.0-10.0); %Lymphocytes 24.2 % (21.0-51.0); %Monocytes 8.3 % (0.0-10.0); %Neutrophils 63.3 % (42.0-75.0); Hemoglobin 11.9 g/dL (12.0-16.0); Mean Corpuscular HGB CONC 34.7 g/dL (32.0-36.0); Mean Corpuscular Hemoglobin 34.3 pg (27.0-31.0); Mean Corpuscular Volume 98.9 fl (78.0-98.0); Mean Platelet Volume 6.2 fL (7.4-10.4); Platelet Count 222 10x3/uL (130-400); RBC Distribution Width 12.8 % (11.5-14.5); Red Blood Cell (RBC) Count 3.47 mill/uL (4.20-5.40); White Blood Cell (WBC) Count 4.9 10x3/uL (4.8-10.8)
[2022-10-07 15:52] LABS: ALT (SGPT) 15 U/L (8-55); AST (SGOT) 15 U/L (5-34); Albumin 3.2 g/dL (3.4-4.8); Alkaline Phosphatase 77 U/L (40-110); Anion Gap 11 mmol/L (10-20); BUN (Urea Nitrogen) 11 mg/dL (9.8-20.1); Bilirubin, Total 0.6 mg/dL (0.2-1.2); Calc. Creatinine Clearance 0 mL/min (70-130); Calcium 8.7 mg/dL (7.8-10.44); Carbon Dioxide 26 mmol/L (23-31); Chloride 100 mmol/L (98-107); Estimated GFR 92; Glucose 116 mg/dL (83-110); Potassium 3.8 mmol/L (3.5-5.1); Protein, Total 5.2 g/dL (5.8-8.1); Sodium 133 mmol/L (136-145)
[2022-10-07] MEDS ORDERED: Dicyclomine 20 MG/2 ML VIAL ONE (18:34)
== END 2022-10-07 19:04 ==
LOC: ERS 14:55
DX: A09 Infectious gastroenteritis and colitis, unspecified (principal); R55 Syncope and collapse; E78.00 Pure hypercholesterolemia, unspecified; I10 Essential (primary) hypertension; Z79.899 Other long term (current) drug therapy; Z79.82 Long term (current) use of aspirin
CPT/HCPCS: 36415; 70450; 72125; 74177; 80053; 84484; 85025; 93005; 96372; Q9967

== ENCOUNTER 2023-03-21 09:31 | Inpatient (IN) | payer MEDICARE ==
[2023-03-21 10:41] LABS: Bacteria/HPF None Seen HPF (None Seen); Bilirubin Negative (Negative); Blood, Urine Negative (Negative); CAUTI Indications for Culture Alt mental st,lethar; Clarity Clear (Clear); Glucose, Urine (Dipstick) Normal (Negative); Ketone, Urine Negative (Negative); Leukocyte 75 Leu/uL (Negative); Nitrite Negative (Negative); Protein, Urine (Dipstick) Negative (Neg-Trace); RBC/HPF 0-3 HPF (0-3); Specific Gravity, Urine 1.006 (1.002-1.036); Squamous Epithelial 0-3 HPF (0-3); Urobilinogen Normal mg/dL (Less than 2)
[2023-03-21 10:42] LABS: Urine Culture Reflex No No
[2023-03-21 11:04] LABS: #Monocytes 0.2 thou/uL (0.11-0.59); #Neutrophils 8.9 thou/uL (1.40-6.50); %Basophils 0.2 % (0.0-1.0); %Lymphocytes 7.9 % (21.0-51.0); Hemoglobin 12.8 g/dL (12.0-16.0); Mean Corpuscular HGB CONC 33.4 g/dL (32.0-36.0); Mean Corpuscular Hemoglobin 31.4 pg (27.0-31.0); Mean Corpuscular Volume 93.9 fl (78.0-98.0); Mean Platelet Volume 8.9 fL (7.4-10.4); Platelet Count 286 10x3/uL (130-400); RBC Distribution Width 13.2 % (11.5-14.5); Red Blood Cell (RBC) Count 4.08 mill/uL (4.20-5.40)
[2023-03-21 11:18] LABS: PTT 35.9 sec (22.9-36.1); Prothrombin Time 13.7 sec (12.0-14.7)
[2023-03-21 11:30] LABS: ALT (SGPT) 17 U/L (8-55); AST (SGOT) 17 U/L (5-34); Albumin 3.8 g/dL (3.4-4.8); Alkaline Phosphatase 74 U/L (40-110); Anion Gap 14 mmol/L (10-20); BUN (Urea Nitrogen) 11 mg/dL (9.8-20.1); Bilirubin, Total 0.5 mg/dL (0.2-1.2); CK (CPK) 26 U/L (29-168); Calc. Creatinine Clearance 0 mL/min (70-130); Calcium 9.6 mg/dL (7.8-10.44); Carbon Dioxide 23 mmol/L (23-31); Chloride 107 mmol/L (98-107); Estimated GFR 93; Globulin 3.2 g/dL (2.4-3.5); Glucose 122 mg/dL (83-110); Lipase 14 U/L (8-78); Magnesium 1.7 mg/dL (1.6-2.6); Potassium 4.2 mmol/L (3.5-5.1); Sodium 140 mmol/L (136-145)
[2023-03-21] MEDS ORDERED: Morphine 4 MG/ML VIAL ONE ×2 (11:32→12:54)
[2023-03-21] MEDS ORDERED: Iopamidol-370 76% 500 ML MDV (1 ML CHARGE) ONE (15:14)
[2023-03-21 15:51] VITALS: BMI 28.0
[2023-03-21] MEDS ORDERED: Electrolyte Replacement Protocol 1 EACH FS SCH (16:30)
[2023-03-21] MEDS ORDERED: Ondansetron PF 4 MG/2 ML Vial IVP PRN (17:59)
[2023-03-21] MEDS ORDERED: Ondansetron ODT 4 MG TAB PO PRN (17:59)
[2023-03-21] MEDS ORDERED: Dicyclomine 10 MG CAP PO PRN (18:06)
[2023-03-21] MEDS ORDERED: cloNIDine 0.1 MG TAB PO PRN (20:52)
[2023-03-21] MEDS: Gabapentin 300 MG CAP PO SCH (20:55)
[2023-03-21] MEDS: Amitriptyline HCl 25 MG TAB PO SCH (20:57)
[2023-03-21] MEDS: Baclofen 10 MG TAB PO SCH (20:57)
[2023-03-21] MEDS: Carvedilol 6.25 MG TAB PO SCH (20:57)
[2023-03-21] MEDS: Polyethylene Glycol 3350 17 GM Packet PO SCH (20:58)
[2023-03-21] MEDS: Icosapent Ethyl 1 GM CAPSULE PO SCH (21:12)
[2023-03-22] MEDS ORDERED: cloNIDine 0.1 MG TAB PO SCH (03:15)
[2023-03-22 05:29] LABS: #Monocytes 0.7 thou/uL (0.11-0.59); #Neutrophils 9.2 thou/uL (1.40-6.50); %Basophils 0.3 % (0.0-1.0); %Lymphocytes 10.8 % (21.0-51.0); %Monocytes 6.3 % (0.0-10.0); %Neutrophils 81.6 % (42.0-75.0); Hemoglobin 11.5 g/dL (12.0-16.0); Mean Corpuscular HGB CONC 33.7 g/dL (32.0-36.0); Mean Corpuscular Hemoglobin 31.6 pg (27.0-31.0); Mean Corpuscular Volume 93.7 fl (78.0-98.0); Mean Platelet Volume 8.6 fL (7.4-10.4); Platelet Count 313 10x3/uL (130-400); RBC Distribution Width 13.6 % (11.5-14.5); Red Blood Cell (RBC) Count 3.64 mill/uL (4.20-5.40); White Blood Cell (WBC) Count 11.2 10x3/uL (4.8-10.8)
[2023-03-22 05:55] LABS: Anion Gap 12 mmol/L (10-20); BUN (Urea Nitrogen) 10 mg/dL (9.8-20.1); Calc. Creatinine Clearance 85 mL/min (70-130); Calcium 9.3 mg/dL (7.8-10.44); Carbon Dioxide 26 mmol/L (23-31); Chloride 102 mmol/L (98-107); Estimated GFR 93; Glucose 121 mg/dL (83-110); Potassium 4.1 mmol/L (3.5-5.1); Sodium 136 mmol/L (136-145)
[2023-03-22] MEDS ORDERED: Magnesium 2 GM/50 ML(in water) 2 GM in Premix Bag 1 BAG IVPB SCH (08:00)
[2023-03-22] MEDS ORDERED: UBROGEPANT 100 MG PO SCH (09:00)
[2023-03-22] MEDS: Acetaminophen 325 MG TAB PO PRN (10:03)
[2023-03-22] MEDS: Baclofen 10 MG TAB PO SCH ×2 (10:07→13:57)
[2023-03-22] MEDS: Aspirin 325 mg Enteric Coated Tablet PO SCH (10:08)
[2023-03-22] MEDS: Icosapent Ethyl 1 GM CAPSULE PO SCH (10:08)
[2023-03-22] MEDS: Folic Acid 1 MG TAB PO SCH (10:08)
[2023-03-22] MEDS: Gabapentin 300 MG CAP PO SCH ×2 (10:09→17:41)
[2023-03-22] MEDS: Carvedilol 6.25 MG TAB PO SCH ×2 (10:09→17:41)
[2023-03-22] MEDS: Senokot S 8.6-50 MG TAB PO SCH (10:09)
[2023-03-22] MEDS: Polyethylene Glycol 3350 17 GM Packet PO SCH (10:11)
[2023-03-22] MEDS ORDERED: Iopamidol 370 76% 100 ML VIAL ONE (10:15)
[2023-03-22] MEDS ORDERED: Magnevist 469MG/ML 20 ML VIAL ONE (10:20)
[2023-03-22] MEDS: Cephalexin 250 MG CAP PO SCH ×2 (13:57→21:33)
[2023-03-22] MEDS: Rosuvastatin 10 MG TAB PO SCH (13:57)
[2023-03-22] MEDS: Amlodipine 5 MG TAB PO SCH (13:57)
[2023-03-22] MEDS ORDERED: Bisacodyl 10 MG SUPP PR PRN (13:59)
[2023-03-22] MEDS ORDERED: BUPRENORPHINE 20 MCG TD SCH (18:00)
[2023-03-23] MEDS: Icosapent Ethyl 1 GM CAPSULE PO SCH ×3 (01:11→21:39)
[2023-03-23] MEDS: Gabapentin 300 MG CAP PO SCH ×4 (01:11→22:49)
[2023-03-23] MEDS: Baclofen 10 MG TAB PO SCH ×4 (01:12→21:40)
[2023-03-23] MEDS: Amitriptyline HCl 25 MG TAB PO SCH ×2 (01:12→21:40)
[2023-03-23] MEDS: Senokot S 8.6-50 MG TAB PO SCH ×3 (01:14→21:41)
[2023-03-23] MEDS: Polyethylene Glycol 3350 17 GM Packet PO SCH ×3 (01:14→21:38)
[2023-03-23] MEDS: Carvedilol 6.25 MG TAB PO SCH ×4 (01:14→22:50)
[2023-03-23 05:05] LABS: #Monocytes 0.8 thou/uL (0.11-0.59); #Neutrophils 10.2 thou/uL (1.40-6.50); %Basophils 0.1 % (0.0-1.0); %Monocytes 6.3 % (0.0-10.0); %Neutrophils 84.9 % (42.0-75.0); Hemoglobin 11.2 g/dL (12.0-16.0); Mean Corpuscular HGB CONC 33.5 g/dL (32.0-36.0); Mean Corpuscular Hemoglobin 31.6 pg (27.0-31.0); Mean Corpuscular Volume 94.4 fl (78.0-98.0); Mean Platelet Volume 8.9 fL (7.4-10.4); Platelet Count 315 10x3/uL (130-400); RBC Distribution Width 13.6 % (11.5-14.5); Red Blood Cell (RBC) Count 3.54 mill/uL (4.20-5.40)
[2023-03-23 05:25] LABS: Anion Gap 10 mmol/L (10-20); BUN (Urea Nitrogen) 18 mg/dL (9.8-20.1); Calc. Creatinine Clearance 75 mL/min (70-130); Calcium 8.8 mg/dL (7.8-10.44); Carbon Dioxide 28 mmol/L (23-31); Chloride 99 mmol/L (98-107); Estimated GFR 86; Glucose 146 mg/dL (83-110); Potassium 4.2 mmol/L (3.5-5.1); Sodium 133 mmol/L (136-145)
[2023-03-23] MEDS: Apixaban 5 MG TAB PO SCH ×2 (08:41→21:40)
[2023-03-23] MEDS: Cephalexin 250 MG CAP PO SCH ×2 (08:41→15:15)
[2023-03-23] MEDS: Aspirin 325 mg Enteric Coated Tablet PO SCH (08:41)
[2023-03-23] MEDS: Folic Acid 1 MG TAB PO SCH (08:41)
[2023-03-23 11:23] LABS: Bilirubin Negative (Negative); Blood, Urine Trace (Negative); CAUTI Indications for Culture Dysuria,urgency,freq; Clarity Turbid (Clear); Glucose, Urine (Dipstick) Normal (Negative); Ketone, Urine Negative (Negative); Leukocyte 500 Leu/uL (Negative); Nitrite Negative (Negative); Protein, Urine (Dipstick) Negative (Neg-Trace); RBC/HPF 0-3 HPF (0-3); Specific Gravity, Urine 1.018 (1.002-1.036); Squamous Epithelial 0-3 HPF (0-3); Urobilinogen Normal mg/dL (Less than 2); WBC/HPF Greater than 50 HPF (0-3)
[2023-03-23 11:30] LABS: Bacteria/HPF 1+ HPF (None Seen)
[2023-03-23 11:32] LABS: Urine Culture Reflex Yes Yes
[2023-03-23] MEDS: Amlodipine 5 MG TAB PO SCH (15:16)
[2023-03-23] MEDS: Rosuvastatin 10 MG TAB PO SCH (15:16)
[2023-03-23] MEDS ORDERED: Cefepime 2 GM in Sodium Chloride 0.9% 100 ML IVPB SCH (15:30)
[2023-03-24 05:14] LABS: #Monocytes 0.7 thou/uL (0.11-0.59); #Neutrophils 5.9 thou/uL (1.40-6.50); %Basophils 0.4 % (0.0-1.0); %Lymphocytes 12.5 % (21.0-51.0); %Monocytes 9.6 % (0.0-10.0); %Neutrophils 75.6 % (42.0-75.0); Hemoglobin 11.8 g/dL (12.0-16.0); Mean Corpuscular HGB CONC 33.7 g/dL (32.0-36.0); Mean Corpuscular Hemoglobin 31.3 pg (27.0-31.0); Mean Corpuscular Volume 92.8 fl (78.0-98.0); Mean Platelet Volume 8.6 fL (7.4-10.4); Platelet Count 293 10x3/uL (130-400); RBC Distribution Width 13.5 % (11.5-14.5); Red Blood Cell (RBC) Count 3.77 mill/uL (4.20-5.40); White Blood Cell (WBC) Count 7.7 10x3/uL (4.8-10.8)
[2023-03-24 05:37] LABS: Anion Gap 12 mmol/L (10-20); BUN (Urea Nitrogen) 20 mg/dL (9.8-20.1); Calc. Creatinine Clearance 82 mL/min (70-130); Calcium 8.8 mg/dL (7.8-10.44); Carbon Dioxide 24 mmol/L (23-31); Chloride 105 mmol/L (98-107); Estimated GFR 92; Glucose 127 mg/dL (83-110); Sodium 137 mmol/L (136-145)
[2023-03-24] MEDS: Cefepime 1 GM in Sodium Chloride 0.9% 100 ML IVPB SCH ×2 (08:47→21:36)
[2023-03-24] MEDS: Baclofen 10 MG TAB PO SCH ×3 (08:48→21:42)
[2023-03-24] MEDS: Senokot S 8.6-50 MG TAB PO SCH ×2 (08:48→21:42)
[2023-03-24] MEDS: Icosapent Ethyl 1 GM CAPSULE PO SCH ×2 (08:48→21:42)
[2023-03-24] MEDS: Polyethylene Glycol 3350 17 GM Packet PO SCH ×2 (08:48→21:43)
[2023-03-24] MEDS: Aspirin 325 mg Enteric Coated Tablet PO SCH (08:49)
[2023-03-24] MEDS: Apixaban 5 MG TAB PO SCH ×2 (08:49→21:40)
[2023-03-24] MEDS: Gabapentin 300 MG CAP PO SCH ×3 (08:49→21:40)
[2023-03-24] MEDS: Carvedilol 6.25 MG TAB PO SCH ×3 (08:49→21:41)
[2023-03-24] MEDS: Folic Acid 1 MG TAB PO SCH (08:50)
[2023-03-24] MEDS: Rosuvastatin 10 MG TAB PO SCH (14:31)
[2023-03-24] MEDS: Amlodipine 5 MG TAB PO SCH (14:31)
[2023-03-24] MEDS: Amitriptyline HCl 25 MG TAB PO SCH (21:42)
[2023-03-25] MEDS: Acetaminophen 325 MG TAB PO PRN (04:48)
[2023-03-25 05:18] LABS: #Monocytes 0.9 thou/uL (0.11-0.59); %Basophils 0.4 % (0.0-1.0); %Lymphocytes 16.1 % (21.0-51.0); %Neutrophils 68.4 % (42.0-75.0); Hemoglobin 11.8 g/dL (12.0-16.0); Mean Corpuscular HGB CONC 33.5 g/dL (32.0-36.0); Mean Corpuscular Hemoglobin 31.5 pg (27.0-31.0); Mean Corpuscular Volume 93.9 fl (78.0-98.0); Mean Platelet Volume 8.8 fL (7.4-10.4); Platelet Count 306 10x3/uL (130-400); RBC Distribution Width 13.2 % (11.5-14.5); Red Blood Cell (RBC) Count 3.75 mill/uL (4.20-5.40); White Blood Cell (WBC) Count 7.3 10x3/uL (4.8-10.8)
[2023-03-25 05:40] LABS: Anion Gap 10 mmol/L (10-20); BUN (Urea Nitrogen) 16 mg/dL (9.8-20.1); Calc. Creatinine Clearance 85 mL/min (70-130); Calcium 8.6 mg/dL (7.8-10.44); Carbon Dioxide 25 mmol/L (23-31); Chloride 103 mmol/L (98-107); Estimated GFR 93; Glucose 143 mg/dL (83-110); Potassium 4.1 mmol/L (3.5-5.1); Sodium 134 mmol/L (136-145)
[2023-03-25] MEDS ORDERED: Ciprofloxacin 500 MG TAB PO SCH (08:15)
[2023-03-25] MEDS: Aspirin 325 mg Enteric Coated Tablet PO SCH (08:50)
[2023-03-25] MEDS: Baclofen 10 MG TAB PO SCH (08:50)
[2023-03-25] MEDS: Icosapent Ethyl 1 GM CAPSULE PO SCH (08:50)
[2023-03-25] MEDS: Apixaban 5 MG TAB PO SCH (08:50)
[2023-03-25] MEDS: Polyethylene Glycol 3350 17 GM Packet PO SCH (08:51)
[2023-03-25] MEDS: Senokot S 8.6-50 MG TAB PO SCH (08:51)
[2023-03-25] MEDS: Folic Acid 1 MG TAB PO SCH (08:51)
[2023-03-25] MEDS: Gabapentin 300 MG CAP PO SCH (08:51)
[2023-03-25] MEDS: Carvedilol 6.25 MG TAB PO SCH (08:51)
[2023-03-25] MEDS ORDERED: Nitrofurantoin Monohyd/M-Cryst 100 MG CAP PO SCH (09:00)
[2023-03-25 10:29] VITALS: BP 148/72; TEMP 98.5
[2023-03-30] MEDS ORDERED: Apixaban 5 MG TAB PO SCH (09:00)
== END 2023-03-25 11:40 | disposition home health service (06) | DRG 70 ==
LOC: ERS 09:31 → 2NO 12:59
PROVIDERS: ADMIT Internal Medicine; ATTEND Emergency Medicine
DX: G93.49 Other encephalopathy (principal); I26.99 Other pulmonary embolism without acute cor pulmonale; N39.0 Urinary tract infection, site not specified; I10 Essential (primary) hypertension; E78.5 Hyperlipidemia, unspecified; I25.10 Atherosclerotic heart disease of native coronary artery without angina pectoris; G43.409 Hemiplegic migraine, not intractable, without status migrainosus; M54.81 Occipital neuralgia; R33.9 Retention of urine, unspecified; N32.89 Other specified disorders of bladder; R91.1 Solitary pulmonary nodule; Z85.828 Personal history of other malignant neoplasm of skin; Z98.890 Other specified postprocedural states; Z88.8 Allergy status to other drugs, medicaments and biological substances; Z88.1 Allergy status to other antibiotic agents; Z79.899 Other long term (current) drug therapy; Z79.82 Long term (current) use of aspirin; Z95.1 Presence of aortocoronary bypass graft; Z90.710 Acquired absence of both cervix and uterus; Z90.49 Acquired absence of other specified parts of digestive tract; Z82.49 Family history of ischemic heart disease and other diseases of the circulatory system
CPT/HCPCS: 36415; 51701; 70450; 71045; 71275; 72158; 74177; 80048; 80053; 81001; 82550; 83605; 83690; 83735; 83880; 84145; 84484; 85025; 85610; 85730; 87040; 87077; 87086; 87149; 87186; 93005; 93306; 93970; 94760; 96361; 96372; 96374; 96376; A9579; J0692; J1650; J2270; J2405; J3475; J3490; Q0162; Q9967

== ENCOUNTER 2023-05-02 05:26 | Observation (INO) | payer MEDICARE ==
[2023-05-02 06:50] LABS: #Eosinphils 0.2 thou/uL (0.0-0.7); #Monocytes 0.6 thou/uL (0.11-0.59); #Neutrophils 3.1 thou/uL (1.40-6.50); %Basophils 0.8 % (0.0-1.0); %Eosinophils 3.1 % (0.0-10.0); %Lymphocytes 26.6 % (21.0-51.0); %Monocytes 10.7 % (0.0-10.0); %Neutrophils 58.2 % (42.0-75.0); Hematocrit 35.6 % (36.0-47.0); Hemoglobin 11.9 g/dL (12.0-16.0); Mean Corpuscular HGB CONC 33.4 g/dL (32.0-36.0); Mean Corpuscular Hemoglobin 32.4 pg (27.0-31.0); Mean Platelet Volume 8.6 fL (7.4-10.4); Platelet Count 269 10x3/uL (130-400); RBC Distribution Width 13.8 % (11.5-14.5); Red Blood Cell (RBC) Count 3.67 mill/uL (4.20-5.40); White Blood Cell (WBC) Count 5.2 10x3/uL (4.8-10.8)
[2023-05-02 07:07] LABS: INR-International Normal Ratio 1.2; PTT 49.8 sec (22.9-36.1); Prothrombin Time 15.2 sec (12.0-14.7)
[2023-05-02 07:31] LABS: ALT (SGPT) 13 U/L (8-55); AST (SGOT) 21 U/L (5-34); Albumin 3.2 g/dL (3.4-4.8); Alkaline Phosphatase 54 U/L (40-110); Anion Gap 12 mmol/L (10-20); BUN (Urea Nitrogen) 15 mg/dL (9.8-20.1); Bilirubin, Total 0.3 mg/dL (0.2-1.2); Calc. Creatinine Clearance 0 mL/min (70-130); Calcium 9.1 mg/dL (7.8-10.44); Carbon Dioxide 27 mmol/L (23-31); Chloride 103 mmol/L (98-107); Estimated GFR 87; Globulin 2.8 g/dL (2.4-3.5); Glucose 104 mg/dL (83-110); Lipase 17 U/L (8-78); Magnesium 1.6 mg/dL (1.6-2.6); Potassium 4.2 mmol/L (3.5-5.1); Sodium 138 mmol/L (136-145)
[2023-05-02 07:35] LABS: Troponin I 0.012 ng/mL (< 0.028)
[2023-05-02] MEDS ORDERED: Acetaminophen 500 MG TAB ONE (08:26)
[2023-05-02] MEDS ORDERED: Acetaminophen 650 MG Suppository PR PRN (09:23)
[2023-05-02] MEDS ORDERED: Loperamide HCl 2 MG CAP PO PRN ×2 (09:23)
[2023-05-02] MEDS ORDERED: Ondansetron ODT 4 MG TAB PO PRN (09:23)
[2023-05-02] MEDS ORDERED: Acetaminophen 325 MG TAB PO PRN (09:23)
[2023-05-02] MEDS ORDERED: Dicyclomine 10 MG CAP PO PRN ×2 (09:27→10:31)
[2023-05-02] MEDS ORDERED: Furosemide 40 MG TAB PO PRN (09:27)
[2023-05-02] MEDS ORDERED: Aspirin 325 MG TAB PO SCH (09:30)
[2023-05-02] MEDS ORDERED: BUPRENORPHINE HCL 150 MCG BC PRN (09:36)
[2023-05-02 10:35] LABS: Troponin I Less than 0.010 ng/mL (< 0.028)
[2023-05-02] MEDS ORDERED: Buprenorphine Hcl [Belbuca] 150 MCG Film PO PRN (10:44)
[2023-05-02] MEDS ORDERED: Aspirin 325 MG TAB ONE (11:08)
[2023-05-02] MEDS: Rosuvastatin 10 MG TAB PO SCH (13:09)
[2023-05-02] MEDS ORDERED: Amlodipine 5 MG TAB ONE (14:07)
[2023-05-02] MEDS ORDERED: Nitroglycerin 2% Ointment 1 INCH/1 GM Packet ONE (14:07)
[2023-05-02] MEDS: Nitroglycerin 2% Ointment 1 INCH/1 GM Packet TOP SCH ×2 (14:11→20:51)
[2023-05-02] MEDS: Amlodipine 5 MG TAB PO SCH (14:12)
[2023-05-02] MEDS: Baclofen 10 MG TAB PO SCH ×2 (14:13→20:20)
[2023-05-02] MEDS ORDERED: Amlodipine 10 MG TAB PO SCH (15:00)
[2023-05-02 17:00] LABS: Troponin I Less than 0.010 ng/mL (< 0.028)
[2023-05-02] MEDS: Gabapentin 300 MG CAP PO SCH ×2 (17:56→22:09)
[2023-05-02] MEDS: Carvedilol 6.25 MG TAB PO SCH ×2 (17:56→22:09)
[2023-05-02] MEDS ORDERED: Carvedilol 3.125 MG TAB PO SCH (18:00)
[2023-05-02 19:47] VITALS: BMI 26.2
[2023-05-02] MEDS: Icosapent Ethyl 1 GM CAPSULE PO SCH (20:20)
[2023-05-02] MEDS ORDERED: Non-Formulary Item 1 EACH (Icosapent Ethyl 1 GM Capsule) PO SCH (21:00)
[2023-05-02] MEDS ORDERED: Famotidine 20 MG TAB PO SCH (21:00)
[2023-05-02] MEDS ORDERED: Amitriptyline HCl 25 MG TAB PO SCH (21:00)
[2023-05-03 05:54] LABS: #Basophils 0.1 thou/uL (0.0-0.2); #Eosinphils 0.2 thou/uL (0.0-0.7); #Monocytes 0.5 thou/uL (0.11-0.59); #Neutrophils 2.1 thou/uL (1.40-6.50); %Basophils 1.1 % (0.0-1.0); %Eosinophils 3.7 % (0.0-10.0); %Lymphocytes 34.1 % (21.0-51.0); %Monocytes 12.1 % (0.0-10.0); %Neutrophils 48.5 % (42.0-75.0); Hematocrit 35.9 % (36.0-47.0); Hemoglobin 11.9 g/dL (12.0-16.0); Mean Corpuscular HGB CONC 33.1 g/dL (32.0-36.0); Mean Corpuscular Volume 96.5 fl (78.0-98.0); Mean Platelet Volume 8.6 fL (7.4-10.4); Platelet Count 254 10x3/uL (130-400); RBC Distribution Width 13.6 % (11.5-14.5); Red Blood Cell (RBC) Count 3.72 mill/uL (4.20-5.40); White Blood Cell (WBC) Count 4.4 10x3/uL (4.8-10.8)
[2023-05-03 06:17] LABS: Anion Gap 12 mmol/L (10-20); BUN (Urea Nitrogen) 10 mg/dL (9.8-20.1); Calc. Creatinine Clearance 78 mL/min (70-130); Carbon Dioxide 26 mmol/L (23-31); Cardiac Risk 2.3 (Less than 4.5); Chloride 103 mmol/L (98-107); Cholesterol 121 mg/dl (< 200 Desired); Estimated GFR 92; Glucose 87 mg/dL (83-110); HDL Cholesterol 52 mg/dL (>60 Neg Risk); LDL Cholesterol, Calculated 59 mg/dL; Potassium 3.9 mmol/L (3.5-5.1); Sodium 137 mmol/L (136-145); Triglycerides 50 mg/dL (Less than 150)
[2023-05-03] MEDS: Nitroglycerin 2% Ointment 1 INCH/1 GM Packet TOP SCH ×2 (07:29→14:56)
[2023-05-03] MEDS: Icosapent Ethyl 1 GM CAPSULE PO SCH (08:55)
[2023-05-03] MEDS: Baclofen 10 MG TAB PO SCH ×2 (08:56→16:44)
[2023-05-03] MEDS: Gabapentin 300 MG CAP PO SCH (08:56)
[2023-05-03] MEDS: Carvedilol 6.25 MG TAB PO SCH ×2 (08:58→14:57)
[2023-05-03] MEDS ORDERED: Linaclotide [Linzess] 72 MCG Capsule PO SCH (09:00)
[2023-05-03] MEDS ORDERED: Non-Formulary Item 1 EACH (Dexlansoprazole [Dexilant] 60 MG Cap.Dr.Bp) PO SCH (09:00)
[2023-05-03] MEDS ORDERED: Aspirin 325 mg Enteric Coated Tablet PO SCH (09:00)
[2023-05-03] MEDS ORDERED: Non-Formulary Item 1 EACH (Linaclotide [Linzess] 72 MCG Capsule) PO SCH (09:00)
[2023-05-03] MEDS ORDERED: Folic Acid 1 MG TAB PO SCH (09:00)
[2023-05-03] MEDS ORDERED: Regadenoson 0.4 MG/5 ML SYRINGE ONE (11:53)
[2023-05-03] MEDS: Rosuvastatin 10 MG TAB PO SCH (12:49)
[2023-05-03] MEDS: Amlodipine 5 MG TAB PO SCH (14:58)
[2023-05-03 16:17] VITALS: BP 131/67; TEMP 98
[2023-05-09] MEDS ORDERED: BUPRENORPHINE 20 MCG TD SCH (09:00)
[2023-05-09] MEDS ORDERED: Buprenorphine [Butrans] 20 MCG Patch.Tdwk TOP SCH (09:00)
== END 2023-05-03 18:00 | disposition home or self-care (01) ==
LOC: ERS 05:26 → ERHOLD 08:31 → 2SW 19:03
PROVIDERS: ADMIT Family Medicine; ATTEND Family Medicine
DX: R07.9 Chest pain, unspecified (principal); I25.10 Atherosclerotic heart disease of native coronary artery without angina pectoris; E78.5 Hyperlipidemia, unspecified; R55 Syncope and collapse; I13.0 Hypertensive heart and chronic kidney disease with heart failure and stage 1 through stage 4 chronic kidney disease, or unspecified chronic kidney disease; N18.9 Chronic kidney disease, unspecified; G43.419 Hemiplegic migraine, intractable, without status migrainosus; M54.81 Occipital neuralgia; K55.039 Acute (reversible) ischemia of large intestine, extent unspecified; C44.40 Unspecified malignant neoplasm of skin of scalp and neck; I50.30 Unspecified diastolic (congestive) heart failure; Z95.1 Presence of aortocoronary bypass graft; Z88.2 Allergy status to sulfonamides; Z88.1 Allergy status to other antibiotic agents; Z88.8 Allergy status to other drugs, medicaments and biological substances; Z86.711 Personal history of pulmonary embolism; Z90.49 Acquired absence of other specified parts of digestive tract; Z90.710 Acquired absence of both cervix and uterus; Z79.01 Long term (current) use of anticoagulants; Z79.82 Long term (current) use of aspirin; Z79.899 Other long term (current) drug therapy
CPT/HCPCS: 71045; 78452; 80048; 80061; 83690; 83735; 83880; 84484 ×2; 85025; 85610; 85730; 93005 ×2; 93017; 94760 ×2; 99285; A9500; J2785; 36415; 80053; 84443; 93010; 96372; G0378; J1650; Q0162

== ENCOUNTER 2023-07-16 11:53 | Outpatient (CLI) | payer MEDICARE | END 2023-07-16 11:54 | disposition home or self-care (01) | LOC: BICMAMMO 11:53 | PROVIDERS: ATTEND Nurse Practitioner Family | DX: Z12.31 Encounter for screening mammogram for malignant neoplasm of breast (principal); Z85.89 Personal history of malignant neoplasm of other organs and systems | CPT/HCPCS: 77063; 77067 ==

== ENCOUNTER 2023-08-21 10:01 | Outpatient (CLI) | payer MEDICARE | END 2023-08-21 10:02 | disposition home or self-care (01) | LOC: BICULT 10:01 | PROVIDERS: ATTEND Nurse Practitioner Family | DX: R30.0 Dysuria (principal) | CPT/HCPCS: 76770 ==

== ENCOUNTER 2023-10-02 09:41 | Inpatient (IN) | payer MEDICARE ==
[2023-10-02 10:37] LABS: #Eosinphils 0.1 thou/uL (0.0-0.7); #Monocytes 0.6 thou/uL (0.11-0.59); #Neutrophils 3.7 thou/uL (1.40-6.50); %Basophils 0.7 % (0.0-1.0); %Eosinophils 1.3 % (0.0-10.0); %Monocytes 9.1 % (0.0-10.0); %Neutrophils 61.2 % (42.0-75.0); Hematocrit 40.5 % (36.0-47.0); Hemoglobin 13.4 g/dL (12.0-16.0); Mean Corpuscular HGB CONC 33.1 g/dL (32.0-36.0); Mean Corpuscular Hemoglobin 32.2 pg (27.0-31.0); Mean Corpuscular Volume 97.4 fl (78.0-98.0); Mean Platelet Volume 8.9 fL (7.4-10.4); Platelet Count 263 10x3/uL (130-400); RBC Distribution Width 13.4 % (11.5-14.5); Red Blood Cell (RBC) Count 4.16 mill/uL (4.20-5.40); White Blood Cell (WBC) Count 6.1 10x3/uL (4.8-10.8)
[2023-10-02 11:05] LABS: Troponin I Less than 0.010 ng/mL (< 0.028)
[2023-10-02 11:07] LABS: ALT (SGPT) 16 U/L (8-55); AST (SGOT) 20 U/L (5-34); Albumin 3.7 g/dL (3.4-4.8); Alkaline Phosphatase 55 U/L (40-110); Anion Gap 10 mmol/L (10-20); BUN (Urea Nitrogen) 10 mg/dL (9.8-20.1); Bilirubin, Total 0.6 mg/dL (0.2-1.2); Calc. Creatinine Clearance 0 mL/min (70-130); Calcium 9.4 mg/dL (7.8-10.44); Carbon Dioxide 28 mmol/L (23-31); Chloride 105 mmol/L (98-107); Estimated GFR 80; Globulin 2.8 g/dL (2.4-3.5); Glucose 96 mg/dL (83-110); Lipase 13 U/L (8-78); Magnesium 1.7 mg/dL (1.6-2.6); Potassium 3.9 mmol/L (3.5-5.1); Protein, Total 6.5 g/dL (5.8-8.1); Sodium 139 mmol/L (136-145)
[2023-10-02 11:49] LABS: Bacteria/HPF None Seen HPF (None Seen); Bilirubin Negative (Negative); Blood, Urine Negative (Negative); CAUTI Indications for Culture Pelvic or flank pain; Clarity Clear (Clear); Glucose, Urine (Dipstick) Normal (Negative); Ketone, Urine Negative (Negative); Leukocyte Negative Leu/uL (Negative); Nitrite Negative (Negative); Protein, Urine (Dipstick) Negative (Neg-Trace); RBC/HPF 0-3 HPF (0-3); Specific Gravity, Urine 1.006 (1.002-1.036); Squamous Epithelial None Seen HPF (0-3); Urobilinogen Normal mg/dL (Less than 2); WBC/HPF 0-3 HPF (0-3)
[2023-10-02 11:55] LABS: Urine Culture Reflex No No
[2023-10-02 12:23] LABS: SARS-CoV-2 NAA Rapid Test Not Detected (NotDetected)
[2023-10-02] MEDS ORDERED: cloNIDine 0.1 MG TAB PO PRN (15:18)
[2023-10-02] MEDS ORDERED: Acetaminophen 325 MG TAB PO PRN (15:23)
[2023-10-02] MEDS ORDERED: Ondansetron PF 4 MG/2 ML Vial IVP PRN (15:23)
[2023-10-02] MEDS ORDERED: Senokot S 8.6-50 MG TAB PO PRN (15:23)
[2023-10-02] MEDS ORDERED: Calcium Carbonate 500 MG ChewTAB PO PRN (15:23)
[2023-10-02] MEDS ORDERED: Isosorbide Mononitrate 30 MG ER.TAB PO PRN (15:42)
[2023-10-02 19:15] VITALS: BMI 23.6
[2023-10-02] MEDS: Apixaban 5 MG TAB PO SCH (20:35)
[2023-10-02] MEDS: Ranolazine 500 MG ER.TAB PO SCH (20:35)
[2023-10-02] MEDS: Famotidine 20 MG TAB PO SCH (20:35)
[2023-10-02] MEDS: Multivit, Therapeutic 1 TAB PO SCH (20:35)
[2023-10-02] MEDS: Carvedilol 3.125 MG TAB PO SCH (20:36)
[2023-10-02] MEDS: Icosapent Ethyl 1 GM CAPSULE PO SCH (20:36)
[2023-10-02] MEDS: Baclofen 10 MG TAB PO SCH (20:36)
[2023-10-02] MEDS ORDERED: Amitriptyline HCl 25 MG TAB PO SCH (21:00)
[2023-10-02] MEDS: Sodium Chloride 0.9% 1,000 ML IV SCH (21:56)
[2023-10-02] MEDS ORDERED: Gabapentin 300 MG CAP PO SCH (22:30)
[2023-10-03] MEDS ORDERED: Gabapentin 300 MG CAP PO SCH ×2 (01:00→09:00)
[2023-10-03] MEDS: Sodium Chloride 0.9% 1,000 ML IV SCH ×2 (02:14→11:49)
[2023-10-03 05:13] LABS: #Eosinphils 0.1 thou/uL (0.0-0.7); #Monocytes 0.5 thou/uL (0.11-0.59); #Neutrophils 2.8 thou/uL (1.40-6.50); %Basophils 0.8 % (0.0-1.0); %Eosinophils 1.2 % (0.0-10.0); %Lymphocytes 30.4 % (21.0-51.0); %Monocytes 9.3 % (0.0-10.0); %Neutrophils 57.7 % (42.0-75.0); Hemoglobin 11.5 g/dL (12.0-16.0); Mean Corpuscular HGB CONC 32.9 g/dL (32.0-36.0); Mean Corpuscular Hemoglobin 32.3 pg (27.0-31.0); Mean Corpuscular Volume 98.3 fl (78.0-98.0); Mean Platelet Volume 8.9 fL (7.4-10.4); Platelet Count 232 10x3/uL (130-400); RBC Distribution Width 13.3 % (11.5-14.5); Red Blood Cell (RBC) Count 3.56 mill/uL (4.20-5.40); White Blood Cell (WBC) Count 4.8 10x3/uL (4.8-10.8)
[2023-10-03 05:46] LABS: ALT (SGPT) 15 U/L (8-55); AST (SGOT) 17 U/L (5-34); Alkaline Phosphatase 47 U/L (40-110); Anion Gap 10 mmol/L (10-20); BUN (Urea Nitrogen) 8 mg/dL (9.8-20.1); Bilirubin, Total 0.5 mg/dL (0.2-1.2); Calc. Creatinine Clearance 86 mL/min (70-130); Calcium 8.7 mg/dL (7.8-10.44); Carbon Dioxide 28 mmol/L (23-31); Chloride 106 mmol/L (98-107); Estimated GFR 93; Globulin 2.3 g/dL (2.4-3.5); Glucose 89 mg/dL (83-110); Potassium 4.4 mmol/L (3.5-5.1); Protein, Total 5.3 g/dL (5.8-8.1); Sodium 140 mmol/L (136-145)
[2023-10-03] MEDS: Naloxegol 12.5 MG TAB PO SCH (07:58)
[2023-10-03] MEDS: Apixaban 5 MG TAB PO SCH ×3 (07:59→20:26)
[2023-10-03] MEDS: Ranolazine 500 MG ER.TAB PO SCH ×3 (07:59→20:24)
[2023-10-03] MEDS: Icosapent Ethyl 1 GM CAPSULE PO SCH ×2 (07:59→17:07)
[2023-10-03] MEDS: Folic Acid 1 MG TAB PO SCH (07:59)
[2023-10-03] MEDS: Carvedilol 3.125 MG TAB PO SCH (08:00)
[2023-10-03] MEDS: Baclofen 10 MG TAB PO SCH ×4 (08:01→20:27)
[2023-10-03] MEDS ORDERED: cloNIDine 0.1 MG TAB PO PRN (08:02)
[2023-10-03] MEDS ORDERED: Furosemide 40 MG TAB PO PRN (08:02)
[2023-10-03] MEDS ORDERED: Non-Formulary Item 1 EACH (Buprenorphine Hcl [Belbuca] 450 MCG Film) BC PRN (08:02)
[2023-10-03] MEDS ORDERED: Isosorbide Mononitrate 30 MG ER.TAB PO PRN ×2 (08:02→08:20)
[2023-10-03] MEDS ORDERED: BUPRENORPHINE 15 MCG TD SCH (08:15)
[2023-10-03] MEDS ORDERED: Buprenorphine Hcl [Belbuca] 450 MCG Film SL PRN (08:25)
[2023-10-03] MEDS: Carvedilol 6.25 MG TAB PO SCH ×3 (08:47→20:26)
[2023-10-03] MEDS: CeleCOXIB 100 MG CAP PO SCH (08:48)
[2023-10-03] MEDS: Gabapentin 300 MG CAP PO SCH ×4 (08:48→20:25)
[2023-10-03] MEDS ORDERED: Buprenorphine [Butrans] 20 MCG Patch.Tdwk TOP SCH (09:00)
[2023-10-03] MEDS ORDERED: Amlodipine 5 MG TAB PO SCH (09:00)
[2023-10-03] MEDS ORDERED: Rosuvastatin 10 MG TAB PO SCH ×2 (09:00→13:00)
[2023-10-03] MEDS ORDERED: Linaclotide [Linzess] 72 MCG Capsule PO SCH (09:00)
[2023-10-03] MEDS ORDERED: Non-Formulary Item 1 EACH (Gabapentin [Neurontin] 600 MG Tablet) PO SCH (09:00)
[2023-10-03] MEDS ORDERED: CeleCOXIB 100 MG CAP PO SCH (09:00)
[2023-10-03] MEDS ORDERED: Non-Formulary Item 1 EACH (Celecoxib [Celebrex] 200 MG Capsule) PO SCH (09:00)
[2023-10-03] MEDS ORDERED: Aspirin 325 mg Enteric Coated Tablet PO SCH ×2 (09:00)
[2023-10-03] MEDS ORDERED: Non-Formulary Item 1 EACH (Dexlansoprazole [Dexilant] 60 MG Cap.Dr.Bp) PO SCH (09:00)
[2023-10-03] MEDS: Aspirin 81 mg Enteric Coated Tablet PO SCH (10:18)
[2023-10-03] MEDS ORDERED: Lactulose 20 GM (30 mL) UDCUP PO PRN (14:46)
[2023-10-03] MEDS ORDERED: Amlodipine 10 MG TAB PO SCH (15:00)
[2023-10-03] MEDS: Amlodipine 5 MG TAB PO SCH (15:06)
[2023-10-03] MEDS: Promethazine 25 MG TAB PO PRN (15:21)
[2023-10-03] MEDS ORDERED: Lactulose 20 GM (30 mL) UDCUP PO SCH (16:00)
[2023-10-03] MEDS ORDERED: Non-Formulary Item 1 EACH (Icosapent Ethyl 1 GM Capsule) PO SCH (17:00)
[2023-10-03] MEDS: Estradiol 0.01% Vaginal Cream 42.5 gm Tube VAG SCH (19:27)
[2023-10-03] MEDS: Rosuvastatin 10 MG TAB PO SCH (20:24)
[2023-10-03] MEDS: Amitriptyline HCl 25 MG TAB PO SCH (20:25)
[2023-10-03] MEDS: Famotidine 20 MG TAB PO SCH (20:26)
[2023-10-03] MEDS: Multivit, Therapeutic 1 TAB PO SCH (20:26)
[2023-10-04] MEDS ORDERED: Non-Formulary Item 1 EACH (Linaclotide [Linzess] 290 MCG Capsule) PO SCH (07:30)
[2023-10-04] MEDS: Linaclotide [Linzess] 290 MCG Cap PO SCH (09:24)
[2023-10-04] MEDS: Naloxegol 12.5 MG TAB PO SCH (09:25)
[2023-10-04] MEDS: Promethazine 25 MG TAB PO PRN ×2 (09:25→20:12)
[2023-10-04] MEDS: Ranolazine 500 MG ER.TAB PO SCH ×2 (09:25→20:12)
[2023-10-04] MEDS: Icosapent Ethyl 1 GM CAPSULE PO SCH ×2 (09:26→17:17)
[2023-10-04] MEDS: Apixaban 2.5 MG TAB PO SCH ×2 (09:26→20:11)
[2023-10-04] MEDS: Folic Acid 1 MG TAB PO SCH (09:26)
[2023-10-04] MEDS: Aspirin 81 mg Enteric Coated Tablet PO SCH (09:26)
[2023-10-04] MEDS: Gabapentin 300 MG CAP PO SCH ×4 (09:26→20:11)
[2023-10-04] MEDS: Carvedilol 6.25 MG TAB PO SCH ×3 (09:27→20:09)
[2023-10-04] MEDS: CeleCOXIB 100 MG CAP PO SCH (09:27)
[2023-10-04] MEDS: Baclofen 10 MG TAB PO SCH ×3 (09:27→20:09)
[2023-10-04] MEDS ORDERED: Lactulose 20 GM (30 mL) UDCUP PO SCH (11:00)
[2023-10-04] MEDS ORDERED: Fleet Saline Enema 133 ML BOT PR SCH (16:00)
[2023-10-04] MEDS: Amlodipine 5 MG TAB PO SCH (17:21)
[2023-10-04] MEDS: Famotidine 20 MG TAB PO SCH (20:11)
[2023-10-04] MEDS: Rosuvastatin 10 MG TAB PO SCH (20:11)
[2023-10-04] MEDS: Multivit, Therapeutic 1 TAB PO SCH (20:12)
[2023-10-04] MEDS: Amitriptyline HCl 25 MG TAB PO SCH (20:12)
[2023-10-04] MEDS: Estradiol 0.01% Vaginal Cream 42.5 gm Tube VAG SCH (20:23)
[2023-10-05] MEDS: Naloxegol 12.5 MG TAB PO SCH (09:08)
[2023-10-05] MEDS: Gabapentin 300 MG CAP PO SCH ×2 (09:09→13:05)
[2023-10-05] MEDS: Carvedilol 6.25 MG TAB PO SCH (09:10)
[2023-10-05] MEDS: Aspirin 81 mg Enteric Coated Tablet PO SCH (09:10)
[2023-10-05] MEDS: Baclofen 10 MG TAB PO SCH (09:11)
[2023-10-05] MEDS: Apixaban 2.5 MG TAB PO SCH (09:12)
[2023-10-05] MEDS: Folic Acid 1 MG TAB PO SCH (09:12)
[2023-10-05] MEDS: Icosapent Ethyl 1 GM CAPSULE PO SCH (09:12)
[2023-10-05] MEDS: Ranolazine 500 MG ER.TAB PO SCH (09:12)
[2023-10-05] MEDS: Linaclotide [Linzess] 290 MCG Cap PO SCH (09:14)
[2023-10-05] MEDS: CeleCOXIB 100 MG CAP PO SCH (09:14)
[2023-10-05 14:30] VITALS: BP 95/62; TEMP 98.6
[2023-10-09] MEDS ORDERED: Buprenorphine [Butrans] 20 MCG Patch.Tdwk TOP SCH (09:00)
== END 2023-10-05 14:44 | disposition home or self-care (01) | DRG 103 ==
LOC: ERS 09:41 → SUATTDRO 09:41 → ERHOLD 15:33 → T4-A 18:29 → OBSVTOIN 10-03 17:20
PROVIDERS: ADMIT Internal Medicine; ATTEND Internal Medicine
PROC: 0T9B70Z Drainage of Bladder with Drainage Device, Via Natural or Artificial Opening (ICD-10-PCS; principal; 2023-10-03)
DX: G43.409 Hemiplegic migraine, not intractable, without status migrainosus (principal); R33.9 Retention of urine, unspecified; G89.29 Other chronic pain; Z86.711 Personal history of pulmonary embolism; I10 Essential (primary) hypertension; E78.5 Hyperlipidemia, unspecified; I25.10 Atherosclerotic heart disease of native coronary artery without angina pectoris; Z79.01 Long term (current) use of anticoagulants; Z11.52 Encounter for screening for COVID-19; Z88.1 Allergy status to other antibiotic agents; Z79.82 Long term (current) use of aspirin; Z79.899 Other long term (current) drug therapy; K59.00 Constipation, unspecified; Z90.49 Acquired absence of other specified parts of digestive tract; Z90.710 Acquired absence of both cervix and uterus; Z98.890 Other specified postprocedural states; F41.9 Anxiety disorder, unspecified; F32.A Depression, unspecified; G44.209 Tension-type headache, unspecified, not intractable; E78.00 Pure hypercholesterolemia, unspecified; Z88.8 Allergy status to other drugs, medicaments and biological substances
CPT/HCPCS: 36415; 51702; 70450; 71045; 80053; 81001; 83690; 83735; 84484; 85025; 85379; 93005; 96374; G0378; J7050; Q0169

== ENCOUNTER 2024-01-16 16:00 | Outpatient (CLI) | payer MEDICARE | END 2024-01-16 16:01 | disposition home or self-care (01) | LOC: SLEEPLAB 16:00 | PROVIDERS: ATTEND Internal Medicine Cardiovascular Disease | DX: G47.33 Obstructive sleep apnea (adult) (pediatric) (principal); R53.83 Other fatigue; R06.83 Snoring; I10 Essential (primary) hypertension; I25.10 Atherosclerotic heart disease of native coronary artery without angina pectoris; K21.9 Gastro-esophageal reflux disease without esophagitis; G47.00 Insomnia, unspecified; F41.8 Other specified anxiety disorders | CPT/HCPCS: 95800 ==

== ENCOUNTER 2024-02-14 16:00 | Outpatient (CLI) | payer MEDICARE | END 2024-02-14 16:01 | disposition home or self-care (01) | LOC: SLEEPLAB 16:00 | DX: G47.33 Obstructive sleep apnea (adult) (pediatric) (principal) | CPT/HCPCS: 95811 ==

== ENCOUNTER 2024-04-23 08:43 | Observation (INO) | payer MEDICARE ==
[2024-04-23 09:30] LABS: #Basophils 0.04 10x3/uL (0.0-0.2); %Basophils 0.6 % (0.0-1.0); %Eosinophils 3.2 % (0.0-10.0); %Lymphocytes 26.9 % (21.0-51.0); Hematocrit 36.6 % (36.0-47.0); Hemoglobin 12.1 g/dL (12.0-16.0); Mean Corpuscular HGB CONC 33.1 g/dL (32.0-36.0); Mean Corpuscular Hemoglobin 32.5 pg (27.0-31.0); Mean Corpuscular Volume 98.4 fL (78.0-98.0); Mean Platelet Volume 8.9 fL (7.4-10.4); Platelet Count 232 10x3/uL (130-400); RBC Distribution Width 14.1 % (11.5-14.5); Red Blood Cell (RBC) Count 3.72 mill/uL (4.20-5.40)
[2024-04-23 09:44] LABS: Lipase 19 U/L (8-78); Magnesium 1.6 mg/dL (1.6-2.6)
[2024-04-23 09:45] LABS: ALT (SGPT) 14 U/L (8-55); AST (SGOT) 20 U/L (5-34); Acetaminophen Less than 10 mcg/mL (Less than 10); Alcohol Less than 10.0 mg/dL (Less than 10); Alkaline Phosphatase 65 U/L (40-110); Anion Gap 13 mmol/L (10-20); BUN (Urea Nitrogen) 16 mg/dL (9.8-20.1); Bilirubin, Total 0.5 mg/dL (0.2-1.2); CK (CPK) 34 U/L (29-168); Calc. Creatinine Clearance 0 mL/min (70-130); Carbon Dioxide 24 mmol/L (23-31); Chloride 108 mmol/L (98-107); Estimated GFR 83; Globulin 3.1 g/dL (2.4-3.5); Glucose 98 mg/dL (83-110); Potassium 3.5 mmol/L (3.5-5.1); Protein, Total 6.1 g/dL (5.8-8.1); Salicylate Less than 8.0 mg/dL (Less than 8.0); Sodium 141 mmol/L (136-145)
[2024-04-23 09:54] LABS: Prothrombin Time 13.1 sec (12.0-14.7)
[2024-04-23 10:11] LABS: Troponin I Less than 0.010 ng/mL (< 0.028)
[2024-04-23 10:30] LABS: Bacteria/HPF None Seen HPF (None Seen); Bilirubin Negative (Negative); Blood, Urine Negative (Negative); CAUTI Indications for Culture Alt mental st,lethar; Clarity Clear (Clear); Glucose, Urine (Dipstick) Normal (Negative); Ketone, Urine Negative (Negative); Leukocyte Negative Leu/uL (Negative); Nitrite Negative (Negative); Protein, Urine (Dipstick) Negative (Neg-Trace); RBC/HPF 0-3 HPF (0-3); Specific Gravity, Urine 1.008 (1.002-1.036); Squamous Epithelial None Seen HPF (0-3); Urobilinogen Normal mg/dL (Less than 2); WBC/HPF None Seen HPF (0-3)
[2024-04-23 10:32] LABS: Urine Culture Reflex No No
[2024-04-23 10:37] LABS: Amphetamine Not Detected (NotDetected); Barbiturates Screen Not Detected (NotDetected); Benzodiazepine Screen Not Detected (NotDetected); Cocaine Metabolite Screen Not Detected (NotDetected); Methadone Not Detected (NotDetected); Methamphetamine Not Detected (NotDetected); Opiate Screen Not Detected (NotDetected); Oxycodone Screen Not Detected (NotDetected); Phencyclidine (PCP) Not Detected (NotDetected); THC/Cannabinoid Screen Not Detected (NotDetected); Tricyclic Screen Detected (NotDetected)
[2024-04-23] MEDS ORDERED: Bisacodyl 5 MG TAB PO PRN (11:39)
[2024-04-23] MEDS ORDERED: Acetaminophen 325 MG TAB PO PRN (11:39)
[2024-04-23 13:53] VITALS: BMI 29.9
[2024-04-23] MEDS: Labetalol HCl 100 MG/20 ML VIAL SLOW IVP SCH (14:58)
[2024-04-23] MEDS: Lorazepam 2 MG/ML VIAL SLOW IVP SCH (15:50)
[2024-04-23] MEDS ORDERED: Isosorbide Mononitrate 30 MG ER.TAB PO PRN (16:08)
[2024-04-23] MEDS ORDERED: Furosemide 40 MG TAB PO PRN (16:08)
[2024-04-23] MEDS ORDERED: cloNIDine 0.1 MG TAB PO PRN (16:08)
[2024-04-23] MEDS ORDERED: BUPRENORPHINE 15 MCG TOP PRN (16:08)
[2024-04-23] MEDS: Carvedilol 6.25 MG TAB PO SCH (18:03)
[2024-04-23] MEDS: Famotidine 20 MG TAB PO SCH (22:27)
[2024-04-23] MEDS: Rosuvastatin 10 MG TAB PO SCH (22:27)
[2024-04-23] MEDS: Ranolazine ER 500 MG TAB PO SCH (22:27)
[2024-04-23] MEDS: Baclofen 10 MG TAB PO SCH (22:27)
[2024-04-23] MEDS: Icosapent Ethyl 1 GM CAPSULE PO SCH (22:28)
[2024-04-23] MEDS: Zonisamide 100 MG CAP PO SCH (22:28)
[2024-04-23] MEDS: Gabapentin 300 MG CAP PO SCH ×2 (22:48)
[2024-04-23] MEDS: Non-Formulary Item 1 EACH (Gabapentin [Neurontin] 600 MG Tablet) PO SCH (22:48)
[2024-04-23] MEDS: Ondansetron PF 4 MG/2 ML Vial ONE (23:05)
[2024-04-23] MEDS: Ondansetron PF 4 MG/2 ML Vial IVP PRN (23:30)
[2024-04-24 05:00] LABS: #Basophils 0.04 10x3/uL (0.0-0.2); %Basophils 0.7 % (0.0-1.0); %Lymphocytes 27.3 % (21.0-51.0); %Monocytes 12.4 % (0.0-10.0); %Neutrophils 56.4 % (42.0-75.0); Mean Corpuscular HGB CONC 33.3 g/dL (32.0-36.0); Mean Corpuscular Hemoglobin 31.4 pg (27.0-31.0); Mean Corpuscular Volume 94.2 fL (78.0-98.0); Mean Platelet Volume 9.2 fL (7.4-10.4); Platelet Count 253 10x3/uL (130-400); RBC Distribution Width 13.9 % (11.5-14.5); Red Blood Cell (RBC) Count 3.82 mill/uL (4.20-5.40)
[2024-04-24 05:17] LABS: Anion Gap 13 mmol/L (10-20); BUN (Urea Nitrogen) 12 mg/dL (9.8-20.1); Calc. Creatinine Clearance 81 mL/min (70-130); Calcium 9.3 mg/dL (7.8-10.44); Carbon Dioxide 28 mmol/L (23-31); Chloride 105 mmol/L (98-107); Estimated GFR 84; Glucose 111 mg/dL (83-110); Potassium 3.6 mmol/L (3.5-5.1); Sodium 142 mmol/L (136-145)
[2024-04-24] MEDS ORDERED: (Linaclotide [Linzess] 290 MCG Capsule) PO SCH (07:30)
[2024-04-24] MEDS: Pantoprazole DR 40 MG TAB PO SCH (07:57)
[2024-04-24] MEDS: Aspirin 325 mg Enteric Coated Tablet PO SCH (07:58)
[2024-04-24] MEDS: cloNIDine 0.1 MG TAB PO PRN (07:58)
[2024-04-24] MEDS: Cholecalciferol 1,000 UNITS (25 MCG) TAB PO SCH (07:59)
[2024-04-24] MEDS: Folic Acid 1 MG TAB PO SCH (07:59)
[2024-04-24] MEDS ORDERED: BIOTIN 5000 MCG PO SCH (09:00)
[2024-04-24] MEDS: Labetalol HCl 100 MG/20 ML VIAL SLOW IVP SCH (09:39)
[2024-04-24] MEDS ORDERED: Labetalol HCl 100 MG/20 ML VIAL SLOW IVP PRN (14:30)
[2024-04-24 16:24] VITALS: BP 111/58; TEMP 98.1
== END 2024-04-24 17:24 | disposition home or self-care (01) ==
LOC: ERS 08:43 → ERHOLD 10:55 → 2SE 13:50
PROVIDERS: ADMIT Internal Medicine; ATTEND Family Medicine
DX: R53.83 Other fatigue (principal); I10 Essential (primary) hypertension; E78.5 Hyperlipidemia, unspecified; I25.10 Atherosclerotic heart disease of native coronary artery without angina pectoris; R41.82 Altered mental status, unspecified; G43.409 Hemiplegic migraine, not intractable, without status migrainosus; M54.81 Occipital neuralgia; Z86.711 Personal history of pulmonary embolism; Z79.01 Long term (current) use of anticoagulants; Z88.1 Allergy status to other antibiotic agents; Z88.8 Allergy status to other drugs, medicaments and biological substances; Z79.899 Other long term (current) drug therapy; Z79.82 Long term (current) use of aspirin; Z95.1 Presence of aortocoronary bypass graft; Z90.710 Acquired absence of both cervix and uterus; Z90.49 Acquired absence of other specified parts of digestive tract; Z87.59 Personal history of other complications of pregnancy, childbirth and the puerperium; Z98.890 Other specified postprocedural states; Z90.89 Acquired absence of other organs
CPT/HCPCS: 51702; 70450; 70551; 71045; 80048; 80053; 80306; 80307; 81001; 82140; 82550; 82962; 83605; 83690; 83735; 83880; 84484; 85025 ×2; 85610; 85730; 87040; 93005; 93970; 94760; 99285; J2060; J2405; 36415; 36416; 96374; 96375; 96376; G0378

== ENCOUNTER 2024-06-16 12:21 | Outpatient (CLI) | payer MEDICARE ==
[~2024-06-16 12:21] MED LIST changes: +Iopamidol 370 76% 100 ML VIAL ONE; -Iopamidol-370 76% 500 ML 1 ML ONE
== END 2024-06-16 12:22 | disposition home or self-care (01) ==
LOC: CT 12:21
PROVIDERS: ATTEND Internal Medicine Gastroenterology
DX: K21.9 Gastro-esophageal reflux disease without esophagitis (principal); R19.7 Diarrhea, unspecified; K59.03 Drug induced constipation; R10.9 Unspecified abdominal pain
CPT/HCPCS: 36415; 74177; 82565; Q9967

== ENCOUNTER 2024-07-17 10:35 | Outpatient (CLI) | payer MEDICARE | END 2024-07-17 10:36 | disposition home or self-care (01) | LOC: BICMAMMO 10:35 | PROVIDERS: ATTEND Nurse Practitioner Family | DX: Z12.31 Encounter for screening mammogram for malignant neoplasm of breast (principal); Z78.0 Asymptomatic menopausal state; Z85.89 Personal history of malignant neoplasm of other organs and systems; Z13.820 Encounter for screening for osteoporosis; M81.0 Age-related osteoporosis without current pathological fracture; M85.89 Other specified disorders of bone density and structure, multiple sites | CPT/HCPCS: 77063; 77067; 77080 ==

== ENCOUNTER 2025-03-27 12:39 | Outpatient (CLI) | payer MEDICARE ==
[2025-03-27 13:59] LABS: #Basophils 0.03 10x3/uL (0.0-0.2); #Eosinophils 0.07 10x3/uL (0.0-0.7); #Monocytes 0.54 10x3/uL (0.11-0.59); #Neutrophils 5.08 10x3/uL (1.40-6.50); %Basophils 0.4 % (0.0-1.0); %Eosinophils 1.0 % (0.0-10.0); %Lymphocytes 18.4 % (21.0-51.0); %Monocytes 7.7 % (0.0-10.0); %Neutrophils 72.1 % (42.0-75.0); Hematocrit 37.6 % (36.0-47.0); Hemoglobin 12.5 g/dL (12.0-16.0); Mean Corpuscular Hemoglobin 31.0 pg (27.0-31.0); Mean Corpuscular Volume 93.3 fL (78.0-98.0); Platelet Count 248 10x3/uL (130-400); Red Blood Cell (RBC) Count 4.03 mill/uL (4.20-5.40); White Blood Cell (WBC) Count 7.05 10x3/uL (4.8-10.8)
[2025-03-27 14:26] LABS: Anion Gap 12 mmol/L (10-20); BUN (Urea Nitrogen) 16 mg/dL (9.8-20.1); Calc. Creatinine Clearance 0 mL/min (70-130); Calcium 8.8 mg/dL (7.8-10.44); Carbon Dioxide 23 mmol/L (23-31); Chloride 109 mmol/L (98-107); Glucose 106 mg/dL (83-110); Potassium 3.7 mmol/L (3.5-5.1); Sodium 140 mmol/L (136-145)
== END 2025-03-27 12:40 | disposition home or self-care (01) ==
LOC: LABBT 12:39
PROVIDERS: ATTEND Neurological Surgery
DX: Z01.812 Encounter for preprocedural laboratory examination (principal); M54.12 Radiculopathy, cervical region
CPT/HCPCS: 80048; 85025

== ENCOUNTER 2025-04-03 05:24 | Day surgery (SDC) | payer MEDICARE ==
[2025-04-03] MEDS ORDERED: Thrombin 5000 UNITS/5 ML VIAL ONE (06:12)
[2025-04-03] MEDS ORDERED: CEFAZOLIN 2 GM VIAL ONE ×2 (06:50→11:33)
[2025-04-03] MEDS ORDERED: fentaNYL PF 100 MCG/2 ML SYRINGE ONE ×3 (07:12→09:01)
[2025-04-03] MEDS ORDERED: PROPOFOL 20 ML ONE ×2 (07:18→08:13)
[2025-04-03] MEDS ORDERED: Rocuronium Bromide 10 MG/ML (10ML VIAL) ONE (07:18)
[2025-04-03] MEDS ORDERED: PHENYLEPHRINE-NS 100 MCG/ML 10 ML SYRINGE ONE (07:34)
[2025-04-03] MEDS ORDERED: Bacitracin Zinc Ointment 30 gm TUBE ONE (08:25)
[2025-04-03] MEDS ORDERED: Ketorolac Tromethamine 30 MG (1 mL) VIAL ONE (08:31)
[2025-04-03] MEDS ORDERED: NEOSTIGMINE 3 MG/3 ML SYRINGE ONE (08:31)
[2025-04-03] MEDS ORDERED: Glycopyrrolate 0.2 MG/ML 5 ML SYRINGE ONE (08:31)
[2025-04-03] MEDS ORDERED: Ondansetron PF 4 MG/2 ML Vial ONE (09:05)
== END 2025-04-03 13:54 | disposition home or self-care (01) ==
LOC: SDC 05:24
PROVIDERS: ATTEND Neurological Surgery
PROC: 0RB30ZZ Excision of Cervical Vertebral Disc, Open Approach (ICD-10-PCS; principal; 2025-04-03)
PROC: 0RG10J0 Fusion of Cervical Vertebral Joint with Synthetic Substitute, Anterior Approach, Anterior Column, Open Approach (ICD-10-PCS; 2025-04-03)
DX: M54.12 Radiculopathy, cervical region (principal); I10 Essential (primary) hypertension; Z88.8 Allergy status to other drugs, medicaments and biological substances; Z88.1 Allergy status to other antibiotic agents; Z88.2 Allergy status to sulfonamides; Z79.82 Long term (current) use of aspirin; Z79.899 Other long term (current) drug therapy
CPT/HCPCS: 22551; C1713; C1889; J1100; J1885; J2405; J2704; J3010